=== PATIENT | female | born 1935 | race American Indian/Alaskan Native ===

== ENCOUNTER 2017-04-30 15:51 | Inpatient (IN) | payer MEDICARE, MEDICAID ==
[2017-04-30 17:02] LABS: URINE BILIRUBIN NEGATIVE (NEGATIVE); URINE BLOOD NEGATIVE (NEGATIVE); URINE GLUCOSE (UA) NEGATIVE (NEGATIVE); URINE LEUKOCYTE ESTERASE NEGATIVE Leu/uL (NEGATIVE); URINE NITRATE NEGATIVE (NEGATIVE); URINE PROTEIN 100 mg/dL (<30 mg/dL); URINE UROBILINOGEN 0.2 E.U./dL (<1 E.U./dL)
[2017-04-30 17:09] LABS: EOS # 4.6 (0.0-0.7); EOS % 0.8 % (1.5-5.0); HEMOGLOBIN 9.5 g/dL (12.0-16.0); MEAN CELL VOLUME 108.9 fl (80.0-105.0); MEAN CORPUSCULAR HEMOGLOBIN 38.3 pg (25.0-35.0); MEAN CORPUSCULAR HGB CONC 35.2 g/dl (31.0-37.0); MEAN PLATELET VOLUME 12.8 fl (7.0-11.0); MONO # 7.5 (0.1-0.6); MONO % 1.3 % (1.0-6.0); PLATELET COUNT 173 10^3/uL (120.0-450.0); RBC 2.48 10^6/uL (3.5-6.1); RED CELL DISTRIBUTION WIDTH 19.9 % (11.5-14.5)
[2017-04-30 17:14] LABS: VENOUS BLOOD GAS PO2 50 mm/Hg (30-55); VENOUS BLOOD PH 7.44 (7.32-7.43)
[2017-04-30 17:16] LABS: WHITE BLOOD COUNT 573.8 10^3/ul (4.5-11.0)
[2017-04-30 17:17] LABS: URINE APPEARANCE SL CLOUDY (CLEAR); URINE COLOR YELLOW (YELLOW)
[2017-04-30 17:19] LABS: INR 1.45 (0.93-1.08); PARTIAL THROMBOPLASTIN TIME 32.5 Seconds (25.1-36.5); PROTHROMBIN TIME 16.6 SECONDS (9.4-12.5)
[2017-04-30 17:25] LABS: URINE RBC 0 - 2 /hpf (0-2); URINE WBC 0 - 2 /hpf (0-6)
[2017-04-30 17:26] LABS: URINE BACTERIA FEW (NEG)
[2017-04-30 17:27] LABS: TROPONIN I 0.03 ng/mL
[2017-04-30 17:35] LABS: ALBUMIN 3.7 g/dL (3.0-4.8); ALT/SGPT 49 U/L (7-56); AST/SGOT 135 U/L (14-36); BLOOD UREA NITROGEN 34 mg/dL (7-21); CALCIUM 9.6 mg/dL (8.4-10.5); GFR AFRICAN-AMERICAN > 60; GFR NON-AFRICAN AMERICAN > 60; MAGNESIUM 2.5 mg/dL (1.7-2.2)
[2017-04-30 17:38] LABS: EOS # 4.2 (0.0-0.7); EOS % 0.7 % (1.5-5.0); HEMOGLOBIN 9.4 g/dL (12.0-16.0); MEAN CELL VOLUME 108.9 fl (80.0-105.0); MEAN CORPUSCULAR HEMOGLOBIN 38.1 pg (25.0-35.0); MEAN CORPUSCULAR HGB CONC 34.9 g/dl (31.0-37.0); MONO % 2.1 % (1.0-6.0); PLATELET COUNT 171 10^3/uL (120.0-450.0); RBC 2.47 10^6/uL (3.5-6.1); RED CELL DISTRIBUTION WIDTH 19.9 % (11.5-14.5)
[2017-04-30 17:40] LABS: WHITE BLOOD COUNT 567.7 10^3/ul (4.5-11.0)
--- NOTE | 2017-04-30 17:46 | ED PDOC ---
Arrival/HPI - General Chief Complaint: Altered Mental Status Time Seen by Provider: 04/30/17 16:09 Past Medical History - Infectious Disease Hx of Infectious Diseases: None - Tetanus Immunization Tetanus Immunization: Unknown - Cardiac Hx Cardiac Disorders: Yes Hx Hypertension: Yes - Pulmonary Hx Respiratory Disorders: No - Neurological Hx Neurological Disorder: Yes Hx Dementia: Yes - HEENT Hx HEENT Disorder: No - Renal Hx Renal Disorder: No - Endocrine/Metabolic Hx Endocrine Disorders: No - Hematological/Oncological Hx Blood Disorders: No Hx Blood Transfusions: No - Integumentary Hx Dermatological Disorder: No - Musculoskeletal/Rheumatological Hx Musculoskeletal Disorders: No Hx Falls: No - Gastrointestinal Hx Gastrointestinal Disorders: No - Genitourinary/Gynecological Hx Genitourinary Disorders: No - Psychiatric Hx Psychophysiologic Disorder: No Hx Emotional Abuse: No Hx Physical Abuse: No Hx Substance Use: No - Surgical History Other/Comment: partial nephrectomy for renal cell ca - Anesthesia Hx Anesthesia Reactions: No Hx Malignant Hyperthermia: No - Suicidal Assessment Feels Threatened In Home Enviroment: No Family/Social History Family/Social History: No Known Family HX Smoking Status: Never Smoked Hx Alcohol Use: No Hx Substance Use: No Hx Substance Use Treatment: No Allergies/Home Meds Allergies/Adverse Reactions: Allergies enalapril Allergy (Verified 04/30/17 16:08) ANGIOEDEMA Home Medications: Home Meds Medication Instructions Recorded Confirmed Docusate [Colace] 200 mg PO DAILY 04/30/17 04/30/17 Ergocalciferol (Vitamin D2) 400 iu PO DAILY 04/30/17 04/30/17 [Vitamin D2] Ferrous Sulfate [Feosol] 325 mg PO DAILY 04/30/17 04/30/17 Furosemide [Lasix] 20 mg PO DAILY 04/30/17 04/30/17 LORazepam [Ativan] 0.5 mg PO BID PRN 04/30/17 04/30/17 Megestrol [Megace] 400 mg PO DAILY 04/30/17 04/30/17 Potassium Chloride 10 meq PO WED 04/30/17 04/30/17 Physical Exam Vital Signs Temp Pulse Resp BP Pulse Ox 04/30/17 20:19 106 H 24 160/92 H 92 L 04/30/17 19:00 99 H 24 154/90 H 95 04/30/17 16:38 98.9 F 102 H 20 146/80 100 Medical Decision Making - Lab Interpretations Microbiology Results: Microbiology Results 04/30/17 17:00 Blood Blood Culture - Final NO GROWTH AFTER 5 DAYS 04/30/17 17:00 Blood Gram Stain - Final TEST NOT PERFORMED 04/30/17 16:45 Blood Blood Culture - Final NO GROWTH AFTER 5 DAYS 04/30/17 16:45 Blood Gram Stain - Final TEST NOT PERFORMED 04/30/17 16:45 Urine,Catheterized Urine Culture - Final No Growth (<1,000 CFU/ML) Lab Results: 04/30/17 17:25 04/30/17 16:45 Lab Results 04/30/17 17:25: Hemoglobin A1c 5.8 04/30/17 17:25: WBC 567.7 H*, RBC 2.47 L, Hgb 9.4 L, Hct 26.9 L, MCV 108.9 H, MCH 38.1 H, MCHC 34.9, RDW 19.9 H, Plt Count 171, MPV 12.0 H, Bl[place] % (Auto) 2.1 , Eos % (Auto) 0.7 L, [place] # 12.0 H, Eos # 4.2 H 04/30/17 16:45: Procalcitonin 0.52 H 04/30/17 16:45: Uric Acid 12.9 H, Lactate Dehydrogenase 6141 H 04/30/17 16:45: Sodium 151 H, Chloride 114 H, Potassium 3.2 L, Carbon Dioxide 27 , Anion Gap 13, BUN 34 H, Creatinine 0.8, Est GFR ( Amer) > 60, Est GFR ( Non-Af Amer) > 60, Random Glucose 102, Calcium 9.6, Phosphorus 2.9, Magnesium 2.5 H, Total Bilirubin 0.7, AST 135 H, ALT 49, Alkaline Phosphatase 152 H, Troponin I 0.03 D, Total Protein 7.4, Albumin 3.7, Globulin 3.7, Albumin/ Globulin Ratio 1.0 L 04/30/17 16:45: pO2 50, VBG pH 7.44 H, VBG pCO2 37.0 L, VBG HCO3 25.1, VBG Total CO2 26.2, VBG O2 Sat (Calc) 95.9 H, VBG Base Excess 1.0, VBG Potassium 5.8 H, Sodium 151.0 H, Chloride 113.0 H, Glucose 110 H, Lactate 1.4, FiO2 21.0, Venous Blood Potassium 5.8 H 04/30/17 16:45: Urine Color Yellow, Urine Appearance Sl cloudy, Urine pH 6.0, Ur Specific [place] 1.025, Urine Protein 100 H, Urine Glucose (UA) Negative, Urine Ketones Negative, Urine Blood Negative, Urine Nitrate Negative, Urine Bilirubin Negative, Urine Urobilinogen 0.2, Ur Leukocyte Esterase Negative, Urine RBC 0 - 2, Urine WBC 0 - 2, Ur Epithelial Cells 1 - 3, Urine Bacteria Few 04/30/17 16:45: PT 16.6 H, INR 1.45 H, APTT 32.5 04/30/17 16:45: WBC 573.8 H* D, RBC 2.48 L, Hgb 9.5 L, Hct 27.0 L, MCV 108.9 H, MCH 38.3 H, MCHC 35.2, RDW 19.9 H, Plt Count 173, MPV 12.8 H, [place] % (Auto) 1.3 , Eos % (Auto) 0.8 L, [place] # 7.5 H, Eos # 4.6 H, Corrected WBC (Man) 434.7 H, Neutrophils % (Manual) 31 L, Lymphocytes % (Manual) 17 L, Monocytes % (Manual) 5 , Eosinophils % (Manual) 4 H, Basophils % (Manual) 1, Nucleated RBC % 32, Immature Lymphocytes 22, Blast Cells , Platelet Evaluation Normal, Macrocytosis (manual) 2+ - RAD Interpretation Radiology Orders: 04/30/17 16:48 CHEST PORTABLE [RAD] Stat 04/30/17 16:49 HEAD W/O CONTRAST [CT] Stat - Medication Orders Current Medication Orders: Discontinued Medications Acetaminophen (Tylenol 650 Mg Supp) 650 mg RC Q4H PRN PRN Reason: Fever >100.4 F Albumin Human (Albumin Human 5% (12.5 Gm/250 Ml)) 12.5 gm IV Q1H JOSE Stop: 05/01/17 06:01 Albumin Human (Albumin Human 5% (12.5 Gm/250 Ml)) 12.5 gm IV ONCE ONE Stop: 05/01/17 21:46 Albumin Human (Albumin Human 5% (12.5 Gm/250 Ml)) 12.5 gm IV ONCE ONE Stop: 05/02/17 06:16 Albumin Human (Albumin Human 5% (12.5 Gm/250 Ml)) 12.5 gm IV ONCE ONE Stop: 05/02/17 06:16 Albumin Human (Albumin Human 5% (12.5 Gm/250 Ml)) 12.5 gm IV ONCE ONE Stop: 05/02/17 06:16 Albumin Human (Albumin Human 5% (12.5 Gm/250 Ml)) 12.5 gm IV ONCE ONE Stop: 05/02/17 06:16 Allopurinol (Zyloprim) 100 mg PO BID [facility] Last Admin: 05/05/17 12:23 Dose: 100 mg Docusate Sodium (Colace) 200 mg PO DAILY [facility] Last Admin: 05/05/17 12:23 Dose: 200 mg Enoxaparin Sodium (Lovenox) 40 mg SC DAILY [facility] PRN Reason: Protocol Last Admin: 05/05/17 12:25 Dose: 40 mg Subcutaneous Administrations Document 05/05/17 12:25 BONIFACIO (Rec: 05/05/17 12:25 BONIFACIO [id number]) Injection Site MAR Injection Site Right Abdomen Charges for Administration # of Subcutaneous Administrations 1 Ferrous Sulfate (Feosol) 324 mg PO DAILY [facility] Last Admin: 05/05/17 12:24 Dose: 324 mg Heparin Sodium (Porcine) (Heparin Lock Flush) 2,000 units IVP ONCE ONE PRN Reason: Protocol Stop: 04/30/17 23:13 Heparin Sodium (Porcine) (Heparin) 1,000 units IVP ONCE ONE PRN Reason: Protocol Stop: 05/01/17 01:48 Heparin Sodium (Porcine) (Heparin) 1,000 units IVP ONCE ONE PRN Reason: Protocol Stop: 05/01/17 01:48 Heparin Sodium (Porcine) (Heparin) 5,000 units IVP ONCE ONE PRN Reason: Protocol Stop: 05/02/17 08:17 Last Admin: 05/02/17 09:27 Dose: 5,000 units Comments: given for catherer, by [facility] IVP Administration Document 05/02/17 09:27 ID (Rec: 05/02/17 09:29 ID [id number]) Charges for Administration # of IVP Administrations 1 Heparin Sodium (Porcine) (Heparin) 5,000 units IVP ONCE ONE PRN Reason: Protocol Stop: 05/02/17 08:18 Last Admin: 05/02/17 09:30 Dose: 5,000 units Comments: given for kiterer, by [facility] IVP Administration Document 05/02/17 09:30 ID (Rec: 05/02/17 09:30 ID [id number]) Charges for Administration # of IVP Administrations 1 Home Med (Home Med) 1 unit PO DAILY JOSE Home Med (Home Med) 1 unit PO DAILY JOSE Home Med (Home Med) 1 unit PO DAILY JOSE Last Admin: 05/05/17 12:24 Dose: 1 unit Comments: med will not scan Hydroxyurea (Hydrea) 1,000 mg PO TID JOSE Stop: 05/05/17 00:00 Last Admin: 05/03/17 14:46 Dose: 1,000 mg Cefepime HCl (Maxipime 2gm) 2 gm in 100 mls @ 100 mls/hr IVPB STAT STA PRN Reason: Protocol Stop: 04/30/17 18:50 Last Admin: 04/30/17 19:33 Dose: 100 mls/hr eMAR Start Stop Document 04/30/17 19:33 CNR (Rec: 04/30/17 19:33 [id number]) Intravenous Solution Start Date 04/30/17 Start Time 19:33 Sodium Chloride (Sodium Chloride 0.9%) 500 mls @ 999 mls/hr IV .Q31M STA Stop: 04/30/17 18:21 Last Admin: 04/30/17 19:33 Dose: 999 mls/hr eMAR Start Stop Document 04/30/17 19:33 CNR (Rec: 04/30/17 19:33 [id number]) Intravenous Solution Start Date 04/30/17 Start Time 19:33 Vancomycin HCl (Vancomycin 1gm) 1 gm in 250 mls @ 167 mls/hr IVPB STAT STA PRN Reason: Protocol Stop: 04/30/17 19:20 Last Admin: 04/30/17 20:37 Dose: 167 mls/hr eMAR Start Stop Document 04/30/17 20:37 CNR (Rec: 04/30/17 20:37 CNR [id number]) Intravenous Solution Start Date 04/30/17 Start Time 20:37 Sodium Chloride (Sodium Chloride 0.9%) 1,000 mls @ 100 mls/hr IV .Q10H JOSE Stop: 05/01/17 19:57 Last Admin: 04/30/17 21:02 Dose: 100 mls/hr eMAR Start Stop Document 04/30/17 21:02 CNR (Rec: 04/30/17 21:03 CNR [id number]) Intravenous Solution Start Date 04/30/17 Start Time 21:03 Albumin Human (Albumin Human 5% (12.5 Gm/250 Ml)) 2,500 mls @ 4 mls/min IV ONCE ONE Stop: 05/01/17 07:39 Meropenem (Merrem Iv 1 Gm Premix) 50 mls @ 100 mls/hr IVPB Q8H JOSE PRN Reason: Protocol Last Admin: 05/03/17 18:41 Dose: 100 mls/hr Vancomycin HCl (Vancomycin 1gm) 1 gm in 250 mls @ 167 mls/hr IVPB Q12H JOSE PRN Reason: Protocol Stop: 05/10/17 08:46 Last Admin: 05/04/17 10:57 Dose: 167 mls/hr eMAR Start Stop Document 05/04/17 10:57 BONIFACIO (Rec: 05/04/17 10:57 BONIFACIO [id number] Intravenous Solution Start Date 05/04/17 Start Time 10:57 End Date 05/04/17 End time 12:27 Total Infusion Time 90 Calcium Gluconate 1,000 mg/ (Dextrose) 110 mls @ 110 mls/hr IVPB ONCE ONE Stop: 05/01/17 16:59 Last Admin: 05/01/17 18:48 Dose: 110 mls/hr Comments: was given by [facility] nurse eMAR Start Stop Document 05/01/17 18:48 YOSHI (Rec: 05/01/17 18:49 YOSHI [id number]) Intravenous Solution Start Date 05/01/17 Start Time 16:00 End Date 05/01/17 End time 16:45 Total Infusion Time 45 Dextrose/Sodium Chloride (Dextrose 5%/0.45% Ns 1000 Ml) 1,000 mls @ 50 mls/hr IV .Q20H [facility] Last Admin: 05/01/17 20:45 Dose: 50 mls/hr eMAR Start Stop Document 05/01/17 20:45 B.P (Rec: 05/01/17 20:46 B.P [facility]) Intravenous Solution Start Date 01/14/18 Start Time 20:46 Calcium Gluconate 1,000 mg/ (Sodium Chloride) 110 mls @ 110 mls/hr IVPB ONCE ONE Stop: 05/02/17 06:59 Potassium Chloride (Potassium Chloride 10 Meq/100 Ml) 10 meq in 100 mls @ 50 mls/hr IVPB ONCE ONE Stop: 05/02/17 09:59 Last Admin: 05/02/17 09:43 Dose: 50 mls/hr eMAR Start Stop Document 05/02/17 09:43 ID (Rec: 05/02/17 09:43 ID [id number]) Intravenous Solution Start Date 05/02/17 Start Time 09:43 End Date 05/02/17 Potassium Chloride (Potassium Chloride 10 Meq/100 Ml) 10 meq in 100 mls @ 50 mls/hr IVPB ONCE ONE Stop: 05/02/17 10:00 Last Admin: 05/02/17 10:55 Dose: 50 mls/hr eMAR Start Stop Document 05/02/17 10:55 ID (Rec: 05/02/17 10:55 ID [id number]) Intravenous Solution Start Date 05/02/17 Start Time 10:55 End Date 05/02/17 Potassium Phosphate 15 mmole/ (Sodium Chloride) 255 mls @ 42.5 mls/hr IVPB ONCE ONE Stop: 05/02/17 14:29 Last Admin: 05/02/17 09:19 Dose: 42.5 mls/hr eMAR Start Stop Document 05/02/17 09:19 ID (Rec: 05/02/17 09:19 ID [id number]) Intravenous Solution Start Date 05/02/17 Start Time 09:19 End Date 05/02/17 Dextrose/Sodium Chloride (Dextrose 5%/0.45% Ns 1000 Ml) 1,000 mls @ 100 mls/hr IV .Q10H JOSE Last Admin: 05/05/17 03:49 Dose: 100 mls/hr eMAR Start Stop Document 05/05/17 03:49 LUKAS (Rec: 05/05/17 03:50 LUKAS [id number]) Intravenous Solution Start Date 05/05/17 Start Time 03:49 Potassium Chloride (Potassium Chloride 10 Meq/100 Ml) 10 meq in 100 mls @ 50 mls/hr IVPB ONCE ONE Stop: 05/03/17 09:52 Last Admin: 05/03/17 10:31 Dose: 50 mls/hr eMAR Start Stop Document 05/03/17 10:31 ID (Rec: 05/03/17 10:31 ID [id number]) Intravenous Solution Start Date 05/03/17 Start Time 10:31 End Date 05/03/17 Potassium Phosphate 15 mmole/ (Sodium Chloride) 255 mls @ 42.5 mls/hr IVPB ONCE ONE Stop: 05/03/17 13:52 Last Admin: 05/03/17 10:31 Dose: 42.5 mls/hr eMAR Start Stop Document 05/03/17 10:31 ID (Rec: 05/03/17 10:32 ID [id number]) Intravenous Solution Start Date 05/03/17 Start Time 10:32 End Date 05/03/17 Potassium Chloride (Potassium Chloride 10 Meq/100 Ml) 10 meq in 100 mls @ 50 mls/hr IVPB ONCE ONE Stop: 05/03/17 09:53 Last Admin: 05/03/17 14:45 Dose: 50 mls/hr eMAR Start Stop Document 05/03/17 14:45 ID (Rec: 05/03/17 14:45 ID [id number]) Intravenous Solution Start Date 05/03/17 Start Time 14:45 End Date 05/03/17 Meropenem (Merrem Iv 1 Gm Premix) 50 mls @ 100 mls/hr IVPB 0600,1400,2200 JOSE PRN Reason: Protocol Last Admin: 05/05/17 15:08 Dose: Potassium Chloride (Potassium Chloride 10 Meq/100 Ml) 10 meq in 100 mls @ 50 mls/hr IVPB ONCE ONE Stop: 05/04/17 18:08 Last Admin: 05/05/17 16:52 Dose: 50 mls/hr eMAR Start Stop Document 05/05/17 16:52 BONIFACIO (Rec: 05/05/17 16:52 BONIFACIO [id number]) Intravenous Solution Start Date 05/05/17 Start Time 16:10 End Date 05/05/17 End time 18:10 Total Infusion Time 120 Potassium Chloride (Potassium Chloride 10 Meq/100 Ml) 10 meq in 100 mls @ 50 mls/hr IVPB ONCE ONE Stop: 05/04/17 18:26 Last Admin: 05/04/17 19:26 Dose: 50 mls/hr eMAR Start Stop Document 05/04/17 19:26 BONIFACIO (Rec: 05/04/17 19:29 BONIFACIO [id number]) Intravenous Solution Start Date 05/04/17 Start Time 19:29 End Date 05/04/17 End time 21:29 Total Infusion Time 120 Potassium Chloride (Potassium Chloride 10 Meq/100 Ml) 10 meq in 100 mls @ 50 mls/hr IVPB Q2 JOSE Stop: 05/05/17 17:59 Last Admin: 05/05/17 14:21 Dose: 50 mls/hr eMAR Start Stop Document 05/05/17 14:21 BONIFACIO (Rec: 05/05/17 14:21 BONIFACIO [id number]) Intravenous Solution Start Date 05/05/17 Start Time 14:21 End Date 05/05/17 End time 16:21 Total Infusion Time 120 Lorazepam (Ativan) 0.5 mg PO BID PRN; Protocol PRN Reason: Anxiety Last Admin: 05/02/17 18:42 Dose: 0.5 mg Behavioural Document 05/02/17 18:42 ID (Rec: 05/02/17 18:42 ID [id number]) Maintenance Maintenance Dose Yes Nonmedicinal Nonmedicinal Interventions Redirect Therapeutic Communication Behavior Behavior for Medication: Anxiety Pulling IV lines/tubes/ catheter Megestrol Acetate (Megace) 400 mg PO DAILY [facility] Last Admin: 05/05/17 12:22 Dose: 400 mg Non-Formulary Medication (Ergocalciferol (Vitamin D2) [Vitamin D2]) 400 iu PO DAILY [facility] Last Admin: 05/05/17 12:25 Dose: Pantoprazole Sodium (Protonix Inj) 40 mg IVP DAILY [facility] Last Admin: 05/03/17 10:31 Dose: 40 mg IVP Administration Document 05/03/17 10:31 ID (Rec: 05/03/17 10:31 ID [id number]) Charges for Administration # of IVP Administrations 1 Pantoprazole Sodium (Protonix Ec Tab) 40 mg PO ACB [facility] Last Admin: 05/05/17 12:25 Dose: 40 mg Pneumococcal Polyvalent Vaccine (Pneumovax 23 Vaccine) 0.5 ml IM .ONCE ONE Stop: 04/30/17 22:56 Potassium Chloride (Potassium Chloride Oral Soln) 40 meq PO ONCE ONE Stop: 05/02/17 08:02 Last Admin: 05/02/17 09:44 Dose: 40 meq Potassium Chloride (Potassium Chloride Oral Soln) 40 meq PO ONCE ONE Stop: 05/03/17 07:55 Last Admin: 05/03/17 10:31 Dose: 40 meq Potassium Chloride (Potassium Chloride Oral Soln) 40 meq PO STAT STA Stop: 05/04/17 12:12 Last Admin: 05/04/17 16:19 Dose: Quetiapine Fumarate (Seroquel) 25 mg PO HS JOSE PRN Reason: Protocol Last Admin: 05/04/17 22:44 Dose: 25 mg Behavioural Document 05/04/17 22:44 [facility] (Rec: 05/04/17 22:45 [id number]) Maintenance Maintenance Dose Yes Re-Assess: Reassess Psych Meds Document 05/04/17 23:44 [facility] (Rec: 05/05/17 05:35 [id number]) Reassess Psych Med Effective Disposition/Present on Arrival - Present on Arrival Any Indicators Present on Arrival: No History of DVT/PE: No History of Uncontrolled Diabetes: No Urinary Catheter: No History of Decub. Ulcer: No History Surgical Site Infection Following: None - Disposition Have Diagnosis and Disposition been Completed?: Yes Diagnosis: Leukocytosis, Altered mental status, Hypernatremia, Anemia Disposition: HOSPITALIZED Disposition Time: 20:00 Condition: STABLE
[2017-04-30] MEDS ORDERED: Cefepime IV 2 gm in NS 2 GM/100 ML BAG IVPB STA (17:51)
[2017-04-30] MEDS ORDERED: Sodium Chloride 0.9% 500 ML IV STA (17:51)
[2017-04-30] MEDS ORDERED: Vancomycin 1gm in NS 250ml 1 GM/250 ML BAG IVPB STA (17:51)
--- NOTE | 2017-04-30 18:03 | CT ---
EXAM: CT Head Without Intravenous Contrast EXAM DATE/TIME: 04/30/2017 4:49 PM CLINICAL HISTORY: 81 years old, female; Signs and symptoms; Altered mental status/memory loss; Additional info: AMS TECHNIQUE: Axial computed tomography images of the head/brain without intravenous contrast. All CT scans at this facility use one or more dose reduction techniques, viz.: automated exposure control; ma/kV adjustment per patient size (including targeted exams where dose is matched to indication; i.e. head); or iterative reconstruction technique. Coronal and sagittal reformatted images were created and reviewed. COMPARISON: There are no prior studies for comparison. FINDINGS: Brain: There is dilatation of sulci gyri and ventricles. There is no midline shift. There is decreased attenuation in periventricular white matter. They are age indeterminate lacunar infarcts in the basal ganglia. There are no focal masses. There are no focal hemorrhages. [place]-white differentiation is visualized. Ventricles: See above Bones/joints: Bones: Cranial vault is intact. Soft tissues: unremarkable Sinuses: There is complete opacification of the left sphenoid sinus. Mastoid air cells: Ears and mastoids: Middle ears and mastoids are unremarkable. Orbits: Orbital contents are unremarkable. 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
--- NOTE | 2017-04-30 18:44 | ED PDOC ---
Arrival/HPI - General Chief Complaint: Altered Mental Status Time Seen by Provider: 04/30/17 16:09 Historian: Patient - History of Present Illness Narrative History of Present Illness (Text): 04/30/17 18:41 Patient is a 81yo female with PMHx of hypertension, dementia, GI hemorrhage and schizophrenia biba from [facility] and [place] for lethargy. The grand daughter who is by the bedside states patient is usually Alert, although baseline confuse , but has been lethargic today. Notes that the NH called her today and she is not sure how long she has been lethargic. PT is poor historian, unable to obtain any information from her. Past Medical History - Provider Review Nursing Documentation Reviewed: Yes - Infectious Disease Hx of Infectious Diseases: None - Tetanus Immunization Tetanus Immunization: Unknown - Cardiac Hx Cardiac Disorders: Yes Hx Hypertension: Yes - Pulmonary Hx Respiratory Disorders: No - Neurological Hx Neurological Disorder: Yes Hx Dementia: Yes - HEENT Hx HEENT Disorder: No - Renal Hx Renal Disorder: No - Endocrine/Metabolic Hx Endocrine Disorders: No - Hematological/Oncological Hx Blood Disorders: No Hx Blood Transfusions: No - Integumentary Hx Dermatological Disorder: No - Musculoskeletal/Rheumatological Hx Musculoskeletal Disorders: No Hx Falls: No - Gastrointestinal Hx Gastrointestinal Disorders: No - Genitourinary/Gynecological Hx Genitourinary Disorders: No - Psychiatric Hx Psychophysiologic Disorder: No Hx Emotional Abuse: No Hx Physical Abuse: No Hx Substance Use: No - Surgical History Other/Comment: partial nephrectomy for renal cell ca - Anesthesia Hx Anesthesia Reactions: No Hx Malignant Hyperthermia: No - Suicidal Assessment Feels Threatened In Home Enviroment: No Family/Social History - Physician Review Nursing Documentation Reviewed: Yes Family/Social History: Unknown Family HX Smoking Status: Never Smoked Hx Alcohol Use: No Hx Substance Use: No Hx Substance Use Treatment: No Allergies/Home Meds Allergies/Adverse Reactions: Allergies enalapril Allergy (Verified 04/30/17 16:08) ANGIOEDEMA Home Medications: Home Meds Medication Instructions Recorded Confirmed Docusate [Colace] 200 mg PO DAILY 04/30/17 04/30/17 Ergocalciferol (Vitamin D2) 400 iu PO DAILY 04/30/17 04/30/17 [Vitamin D2] Ferrous Sulfate [Feosol] 325 mg PO DAILY 04/30/17 04/30/17 Furosemide [Lasix] 20 mg PO DAILY 04/30/17 04/30/17 LORazepam [Ativan] 0.5 mg PO BID PRN 04/30/17 04/30/17 Megestrol [Megace] 400 mg PO DAILY 04/30/17 04/30/17 Potassium Chloride [Potassium 10 meq PO WED 04/30/17 04/30/17 Chloride] Review of Systems - Review of Systems Systems not reviewed;Unavailable: Other (LEthargic) Physical Exam Vital Signs Reviewed: Yes Vital Signs Temp Pulse Pulse Resp BP Pulse Ox 04/30/17 22:39 100.4 F H 99 H 99 H 24 154/90 H 04/30/17 22:16 100.4 F H 04/30/17 19:00 99 H 24 154/90 H 95 04/30/17 16:38 98.9 F 102 H 20 146/80 100 Temperature: Afebrile Blood Pressure: Normal Pulse: Tachycardic Respiratory Rate: Normal Appearance: Positive for: Non-Toxic, Comfortable, Ill-Appearing Pain Distress: None Mental Status: Positive for: Lethargic - Systems Exam Head: Present: Atraumatic, Normocephalic Pupils: Present: PERRL Extroacular Muscles: Present: EOMI Conjunctiva: Present: Normal Mouth: Present: Moist Mucous Membranes Neck: Present: Normal Range of Motion Respiratory/Chest: Present: Clear to Auscultation, Good Air Exchange. No: Respiratory Distress, Accessory Muscle Use Cardiovascular: Present: Regular Rate and Rhythm, Normal S1, S2. No: Murmurs Abdomen: Present: Normal Bowel Sounds. No: Tenderness, Distention, Peritoneal Signs, Rebound, Guarding, McBurney's Point Tender, Rovsing's Sign Present Back: Present: Normal Inspection Upper Extremity: Present: Normal Inspection. No: Cyanosis, Edema Lower Extremity: Present: Normal Inspection. No: Edema Neurological: Present: Other (Responds to painful stimuli and makes incoherent sounds) Skin: Present: Warm, Dry, Normal Color. No: Rashes Psychiatric: Present: Lethargic (Makes incohernet sounds) Medical Decision Making ED Course and Treatment: 05/01/17 00:41 81yo female with PMHx of hypertension, Dementia, GI hemorrhage, Schizophrenia in ED for lethargy. Case was DW Dr. Patel and she notes that pt has been lethargic in the NH for few days now. States patient was treated with Zpack, but became increasingly lethargic and she referred her to ED for further evaluation. Pt remain lethargic in ED. WBC of 567 was noted in ED. Pt was hypernatremic. Lab was compared to previous labs and elevated WBC is a new finding. 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 Vancomycin and Maxipime was ordered. Head CT IMPRESSION: Atrophy and small vessel disease, age indeterminate basal ganglia lacunar infarcts, no bleed; sinus disease Case was CATHY Patel and pt was admitted. Case was CATHY De La Cruz, Patient Care Secretary. He saw patient in ED by the bedside and accepted pt to ICU Case was CATHY Gardiner and she requested Uric acid and LDH. EKG Sinus tachy with LVH @ 104bpm - Lab Interpretations Lab Results: 04/30/17 17:25 04/30/17 16:45 Lab Results 04/30/17 17:25: WBC 567.7 H*, RBC 2.47 L, Hgb 9.4 L, Hct 26.9 L, MCV 108.9 H, MCH 38.1 H, MCHC 34.9, RDW 19.9 H, Plt Count 171, MPV 12.0 H, [place] % (Auto) 2.1 , Eos % (Auto) 0.7 L, [place] # 12.0 H, Eos # 4.2 H 04/30/17 16:45: Uric Acid 12.9 H, Lactate Dehydrogenase 6141 H 04/30/17 16:45: Sodium 151 H, Chloride 114 H, Potassium 3.2 L, Carbon Dioxide 27 , Anion Gap 13, BUN 34 H, Creatinine 0.8, Est GFR ( Amer) > 60, Est GFR ( Non-Af Amer) > 60, Random Glucose 102, Calcium 9.6, Phosphorus 2.9, Magnesium 2.5 H, Total Bilirubin 0.7, AST 135 H, ALT 49, Alkaline Phosphatase 152 H, Troponin I 0.03 D, Total Protein 7.4, Albumin 3.7, Globulin 3.7, Albumin/ Globulin Ratio 1.0 L 04/30/17 16:45: pO2 50, VBG pH 7.44 H, VBG pCO2 37.0 L, VBG HCO3 25.1, VBG Total CO2 26.2, VBG O2 Sat (Calc) 95.9 H, VBG Base Excess 1.0, VBG Potassium 5.8 H, Sodium 151.0 H, Chloride 113.0 H, Glucose 110 H, Lactate 1.4, FiO2 21.0, Venous Blood Potassium 5.8 H 04/30/17 16:45: Urine Color Yellow, Urine Appearance Sl cloudy, Urine pH 6.0, Ur Specific [place] 1.025, Urine Protein 100 H, Urine Glucose (UA) Negative, Urine Ketones Negative, Urine Blood Negative, Urine Nitrate Negative, Urine Bilirubin Negative, Urine Urobilinogen 0.2, Ur Leukocyte Esterase Negative, Urine RBC 0 - 2, Urine WBC 0 - 2, Ur Epithelial Cells 1 - 3, Urine Bacteria Few 04/30/17 16:45: PT 16.6 H, INR 1.45 H, APTT 32.5 04/30/17 16:45: WBC 573.8 H* D, RBC 2.48 L, Hgb 9.5 L, Hct 27.0 L, MCV 108.9 H, MCH 38.3 H, MCHC 35.2, RDW 19.9 H, Plt Count 173, MPV 12.8 H, [place] % (Auto) 1.3 , Eos % (Auto) 0.8 L, [place] # 7.5 H, Eos # 4.6 H, Corrected WBC (Man) 434.7 H, Neutrophils % (Manual) 31 L, Lymphocytes % (Manual) 17 L, Monocytes % (Manual) 5 , Eosinophils % (Manual) 4 H, Basophils % (Manual) 1, Nucleated RBC % 32, Immature Lymphocytes 22, Blast Cells 20, Platelet Evaluation Normal, Macrocytosis (manual) 2+ - RAD Interpretation Radiology Orders: 04/30/17 16:48 CHEST PORTABLE [RAD] Stat 04/30/17 16:49 HEAD W/O CONTRAST [CT] Stat - Medication Orders Current Medication Orders: Acetaminophen (Tylenol 650 Mg Supp) 650 mg RC Q4H PRN PRN Reason: Fever >100.4 F Docusate Sodium (Colace) 200 mg PO DAILY JOSE Enoxaparin Sodium (Lovenox) 40 mg SC DAILY JOSE PRN Reason: Protocol Ferrous Sulfate (Feosol) 324 mg PO DAILY JOSE Furosemide (Lasix) 20 mg PO DAILY [facility] Sodium Chloride (Sodium Chloride 0.9%) 1,000 mls @ 100 mls/hr IV .Q10H JOSE Last Admin: 04/30/17 21:02 Dose: 100 mls/hr eMAR Start Stop Document 04/30/17 21:02 CNR (Rec: 04/30/17 21:03 CNR [id number]) Intravenous Solution Start Date 04/30/17 Start Time 21:03 Cefepime HCl (Maxipime 1gm) 1 gm in 100 mls @ 100 mls/hr IVPB Q24H JOSE PRN Reason: Protocol Albumin Human (Albumin Human 5% (12.5 Gm/250 Ml)) 2,500 mls @ 4 mls/min IV ONCE ONE Stop: 05/01/17 07:39 Lorazepam (Ativan) 0.5 mg PO BID PRN; Protocol PRN Reason: Anxiety Megestrol Acetate (Megace) 400 mg PO DAILY JOSE Non-Formulary Medication (Ergocalciferol (Vitamin D2) [Vitamin D2]) 400 iu PO DAILY JOSE Pantoprazole Sodium (Protonix Inj) 40 mg IVP DAILY JOSE Potassium Chloride (Klor-Con 10) 10 meq PO WED JOSE Quetiapine Fumarate (Seroquel) 25 mg PO HS JOSE PRN Reason: Protocol Discontinued Medications Albumin Human (Albumin Human 5% (12.5 Gm/250 Ml)) 12.5 gm IV Q1H JOSE Stop: 05/01/17 06:01 Heparin Sodium (Porcine) (Heparin Lock Flush) 2,000 units IVP ONCE ONE PRN Reason: Protocol Stop: 04/30/17 23:13 Cefepime HCl (Maxipime 2gm) 2 gm in 100 mls @ 100 mls/hr IVPB STAT STA PRN Reason: Protocol Stop: 04/30/17 18:50 Last Admin: 04/30/17 19:33 Dose: 100 mls/hr eMAR Start Stop Document 04/30/17 19:33 CNR (Rec: 04/30/17 19:33 CNR [id number]) Intravenous Solution Start Date 04/30/17 Start Time 19:33 Sodium Chloride (Sodium Chloride 0.9%) 500 mls @ 999 mls/hr IV .Q31M STA Stop: 04/30/17 18:21 Last Admin: 04/30/17 19:33 Dose: 999 mls/hr eMAR Start Stop Document 04/30/17 19:33 CNR (Rec: 04/30/17 19:33 CNR [id number]) Intravenous Solution Start Date 04/30/17 Start Time 19:33 Vancomycin HCl (Vancomycin 1gm) 1 gm in 250 mls @ 167 mls/hr IVPB STAT STA PRN Reason: Protocol Stop: 04/30/17 19:20 Last Admin: 04/30/17 20:37 Dose: 167 mls/hr eMAR Start Stop Document 04/30/17 20:37 CNR (Rec: 04/30/17 20:37 CNR [id number]) Intravenous Solution Start Date 04/30/17 Start Time 20:37 Pneumococcal Polyvalent Vaccine (Pneumovax 23 Vaccine) 0.5 ml IM .ONCE ONE Stop: 04/30/17 22:56 Disposition/Present on Arrival - Present on Arrival Any Indicators Present on Arrival: No History of DVT/PE: No History of Uncontrolled Diabetes: No Urinary Catheter: No History of Decub. Ulcer: No History Surgical Site Infection Following: None - Disposition Have Diagnosis and Disposition been Completed?: Yes Diagnosis: Leukocytosis, Altered mental status, Hypernatremia, Anemia Disposition: HOSPITALIZED Disposition Time: 18:35 Patient Problems: Current Active Problems Problem Status Onset Altered mental status Acute Anemia Acute Hypernatremia Acute Leukocytosis Acute Condition: SERIOUS
--- NOTE | 2017-04-30 19:38 | CP.PCM.CON ---
<JanettElissa tian - Last Filed: 05/01/17 01:42> History of Present Illness - History of Present Illness History of Present Illness: Please note: h&p limited as patient was altered. Telephone consent for procedures obtained form granddaughter Adeola Brock 81yo F with PMHx of HTN, Dementia, Schizophrenia, Renal Cell CA s/p partial nephrectomy, CML, rectal bleed, here for evaluation for altered mental status. Patient history obtained from chart review. Patient is a resident of [facility]. She was found today by senior care staff noted to be lethargic. Pt's granddaughter was contacted by the staff and she was transferred to [place] ED for further workup. As per granddaughter patient was disoriented and weaker than usual. At baseline she is able to sit up OOB to chair however over the past few days patient was bedbound. In the ED, WBC found to be 567. ROS: unobtainable secondary to patient's AMS PMHx: HTN, Dementia, Schizophrenia, Renal Cell CA s/p partial nephrectomy, CML, rectal bleed PSurgHx: partial nephrectomy Family Hx: heart disease in both parents Social Hx: no hx of EtOH, tobacco, drug use. Lives in [facility] Meds: Please see medication reconciliation ALL: enalapril Review of Systems - Review of Systems Systems not reviewed;Unavailable: Altered Mental Status Past Patient History - Infectious Disease Hx of Infectious Diseases: None - Tetanus Immunizations Tetanus Immunization: Unknown - Past Social History Smoking Status: Never Smoked - CARDIAC Hx Cardiac Disorders: Yes Hx Hypertension: Yes - PULMONARY Hx Respiratory Disorders: No - NEUROLOGICAL Hx Neurological Disorder: Yes Hx Dementia: Yes - HEENT Hx HEENT Problems: No - RENAL Hx Chronic Kidney Disease: No - ENDOCRINE/METABOLIC Hx Endocrine Disorders: No - HEMATOLOGICAL/ONCOLOGICAL Hx Blood Disorders: No Hx Blood Transfusions: No - INTEGUMENTARY Hx Dermatological Problems: No - MUSCULOSKELETAL/RHEUMATOLOGICAL Hx Musculoskeletal Disorders: No Hx Falls: No - GASTROINTESTINAL Hx Gastrointestinal Disorders: No - GENITOURINARY/GYNECOLOGICAL Hx Genitourinary Disorders: No - PSYCHIATRIC Hx Psychophysiologic Disorder: No Hx Emotional Abuse: No Hx Physical Abuse: No Hx Substance Use: No - SURGICAL HISTORY Other/Comment: partial nephrectomy for renal cell ca - ANESTHESIA Hx Anesthesia Reactions: No Hx Malignant Hyperthermia: No Meds Allergies/Adverse Reactions: Allergies Allergy/AdvReac Type Severity Reaction Status Date / Time enalapril Allergy ANGIOEDEMA Verified 04/30/17 16:08 Physical Exam - Constitutional Appears: Confused, Chronically Ill - Head Exam Head Exam: ATRAUMATIC, NORMAL INSPECTION, NORMOCEPHALIC - Eye Exam Eye Exam: EOMI, Normal appearance, PERRL. absent: Conjunctival injection, Scleral icterus Pupil Exam: NORMAL ACCOMODATION - ENT Exam ENT Exam: Mucous Membranes Dry - Respiratory Exam Respiratory Exam: Clear to Auscultation Bilateral, NORMAL BREATHING PATTERN. absent: Accessory Muscle Use, Rales, Rhonchi, Wheezes, Respiratory Distress - Cardiovascular Exam Cardiovascular Exam: Tachycardia, REGULAR RHYTHM, +S1, +S2. absent: Systolic Murmur - GI/Abdominal Exam GI & Abdominal Exam: Normal Bowel Sounds, Soft. absent: Firm, Guarding, Rigid, Tenderness Additional comments: lower abdominal surgical scar noted - Extremities Exam Extremities exam: Positive for: normal capillary refill, normal inspection, pedal pulses present. Negative for: pedal edema - Back Exam Back exam: NORMAL INSPECTION. absent: rash noted, tenderness - Neurological Exam Neurological exam: Altered Additional comments: Incomprehensible sounds. Localizes to painful stimuli. - Skin Skin Exam: Dry, Intact, Normal Color, Warm Results - Vital Signs Recent Vital Signs: Last Vital Signs Temp 98.9 F 04/30/17 16:38 Pulse 102 H 04/30/17 16:38 Resp 20 04/30/17 16:38 BP 146/80 04/30/17 16:38 Pulse Ox 100 04/30/17 16:38 - Labs Result Diagrams: 04/30/17 17:25 04/30/17 16:45 Assessment & Plan - Assessment and Plan (Free Text) Assessment: 81yo F with PMHx of HTN, Dementia, Schizophrenia, Renal Cell CA s/p partial nephrectomy, CML, rectal bleed, here for evaluation for altered mental status Plan: Neuro: -Head CT: atrophy and small vessel disease, age indeterminate basal ganglia lacunar infarcts, no bleed; sinus disease -Speech/Swallow eval -PT/OT -patient has baseline dementia Cardio: -No acute issues -f/u lipid panel and HgbA1c Pulm: -CT Chest: Left lwoer lobe airspace disease, infiltrate and/or atelectasis with small left effusion; elevated right diaphragm with compressive atelectasis at the right base; indeterminate 3.2mm right upper lobe nodule; cardiomegaly and atherosclerotic disease; prominent mediastinal nodes. -f/u CXR -Dr. Rose consulted GI: -NPO -No acute issues -Megace 400mg po qd -Colace 200mg po qd -Protonix 40mg ivp qd Renal: -No acute issues -Strict Is and Os -NS @ 100cc/hr -Allopurinol 100mg po bid -Lasix 20mg po qd -Brooks in place Endo: -no acute issues -Accucheck Heme/Onc: -WBC: 573.8-->567.7 -CT Abd/Pelvis: interval development of hepatosplenomegaly, infectious/ inflammatory vs neoplastic; para-aortic adenopathy cannot be excluded; no bowel obstruction; empty bladder with Brooks catheter and bladder wall thickening; new right abdominal wall cutaneous nodule; atherosclerotic disease. -[facility] contacted for leukopheresis -Albumin 2.5L ordered for fluid resuscitation -Will repeat leukopheresis in AM -DVT ppx- Lovenox 40mg sc qd -Feosol 324mg po qd -Dr. Choi on board -[facility] contact information: -Charge Nurse Lizett -Nurse Luca ID: -f/u blood and urine culture -f/u procalcitonin -Tylenol 650mg rc q4 prn temp -Cefepime 1gm ivpb q24 Day 1 -Dr. Rivers consulted Psych: -Seroquel 25mg po qhs -Ativan 0.5mg po bid prn Discussed with Dr. Andrez Rowland PGY2 <Wilton Maguire Q - Last Filed: 05/01/17 05:29> Meds - Medications Medications: Current Medications Acetaminophen (Tylenol 650 Mg Supp) 650 mg RC Q4H PRN PRN Reason: Fever >100.4 F Allopurinol (Zyloprim) 100 mg PO BID JOSE Docusate Sodium (Colace) 200 mg PO DAILY JOSE Enoxaparin Sodium (Lovenox) 40 mg SC DAILY JOSE PRN Reason: Protocol Ferrous Sulfate (Feosol) 324 mg PO DAILY JOSE Furosemide (Lasix) 20 mg PO DAILY JOSE Sodium Chloride (Sodium Chloride 0.9%) 1,000 mls @ 100 mls/hr IV .Q10H JOSE Last Admin: 04/30/17 21:02 Dose: 100 mls/hr Cefepime HCl (Maxipime 1gm) 1 gm in 100 mls @ 100 mls/hr IVPB Q24H JOSE PRN Reason: Protocol Albumin Human (Albumin Human 5% (12.5 Gm/250 Ml)) 2,500 mls @ 4 mls/min IV ONCE ONE Stop: 05/01/17 07:39 Lorazepam (Ativan) 0.5 mg PO BID PRN; Protocol PRN Reason: Anxiety Megestrol Acetate (Megace) 400 mg PO DAILY JOSE Non-Formulary Medication (Ergocalciferol (Vitamin D2) [Vitamin D2]) 400 iu PO DAILY JOSE Pantoprazole Sodium (Protonix Inj) 40 mg IVP DAILY JOSE Potassium Chloride (Klor-Con 10) 10 meq PO WED JOSE Quetiapine Fumarate (Seroquel) 25 mg PO HS JOSE PRN Reason: Protocol Results - Vital Signs Recent Vital Signs: Last Vital Signs Temp 99.0 F 04/30/17 23:00 Pulse 91 H 05/01/17 01:50 Resp 19 05/01/17 01:50 BP 139/67 05/01/17 01:45 Pulse Ox 100 05/01/17 01:00 - Labs Result Diagrams: 05/01/17 04:30 05/01/17 05:00 Labs: Laboratory Results - last 24 hr 04/30/17 04/30/17 05/01/17 21:30 21:30 04:30 WBC 330.6 H* D RBC 1.67 L Hgb 6.3 L* D Hct 18.3 L* MCV 109.6 H MCH 37.7 H MCHC 34.4 RDW 19.3 H Plt Count 105 L MPV 10.8 Lymph % (Auto) 6.0 L [place] % (Auto) 1.6 Eos % (Auto) 1.3 L Lymph # 19.9 H [place] # 5.2 H Eos # 4.5 H Sodium Potassium Chloride Carbon Dioxide Anion Gap BUN Creatinine Est GFR ( Amer) Est GFR (Non-Af Amer) Random Glucose Calcium Phosphorus Magnesium Iron 68 TIBC 354 % Saturation 19 L Total Bilirubin AST ALT Alkaline Phosphatase Lactate Dehydrogenase Total Protein Albumin Globulin Albumin/Globulin Ratio Triglycerides 169 H Cholesterol 118 L LDL Cholesterol Direct 58 HDL Cholesterol 20 L 05/01/17 05:00 WBC RBC Hgb Hct MCV MCH MCHC RDW Plt Count MPV Lymph % (Auto) [place] % (Auto) Eos % (Auto) Lymph # [place] # Eos # Sodium 156 H* Potassium 3.0 L Chloride 121 H Carbon Dioxide 25 Anion Gap 13 BUN 28 H Creatinine 0.7 Est GFR ( Amer) > 60 Est GFR (Non-Af Amer) > 60 Random Glucose 104 Calcium 8.2 L Phosphorus 2.8 Magnesium 2.0 Iron TIBC % Saturation Total Bilirubin 0.6 AST 54 H D ALT 36 Alkaline Phosphatase 62 Lactate Dehydrogenase 2954 H Total Protein 5.9 Albumin 3.6 Globulin 2.4 Albumin/Globulin Ratio 1.5 Triglycerides Cholesterol LDL Cholesterol Direct HDL Cholesterol Attending/Attestation - Attestation I have personally seen and examined this patient.: Yes I have fully participated in the care of the patient.: Yes I have reviewed all pertinent clinical information: Yes Notes (Text): 05/01/17 05:24 I agree with the above mentioned note and exam by the resident with the addition of the followin81 y/o female with a PMHx as described above was sent to the ED from her nursing facility due to the fact that nursing staff felt she appeared altered and was not behaving as her usual self. Upon my conversation with the patient' s POA, she stated that she has not seen the patient recently to know exactly what change in mentation was occurring but rather the nursing staff informed her of the patient behaving out of the ordinary by drooling more frequently and "zoning off." Patient was found to have significant leukocytosis of over 560 ( confirmed with repeat labs). 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 Patient required emergent leukopheresis so a shiley cathter was placed and I discussed the case with diamante (Dr. Gardiner) to initiate the leukopheresis. Patient underwent one session thus far earlier tonight, will likely require additional sessions to avoid TLS; will defer to heme/onc regarding continued leukopheresis decisions. Patient is being provided with supportive care otherwise and appears hemodynamically stable labs and images available to myself from today have been reviewed personally total time of care: 50 minutes
[2017-04-30 20:19] LABS: URIC ACID 12.9 mg/dL (2.5-6.2)
[2017-04-30] MEDS ORDERED: Cefepime 1gm in NS 100ml 1 GM/100 ML BAG IVPB SCH (20:45)
[2017-04-30] MEDS ORDERED: Sodium Chloride 0.9% 1,000 ML IV SCH (20:45)
[2017-04-30] MEDS ORDERED: Albumin Human 5% (12.5 gm/250 ml) IV SCH (21:00)
--- NOTE | 2017-04-30 21:23 | CP.PCM.CON ---
History of Present Illness - History of Present Illness History of Present Illness: Surgery Consult note. Dr. Bowen Surgery team consulted for Shiley Catheter placement 81yo F with PMHx of HTN, Dementia, Schizophrenia, Renal Cell CA s/p partial nephrectomy, CML, here for evaluation for altered mental status. Patient history obtained from chart review. Patient is a resident of [facility]. She was found today by shelter staff noted to be lethargic. Pt's daughter was contacted by the staff and she was transferred to [facility] for further workup. In the ED, WBC found to be 567. Surgery was consulted for Shiley Catheter placement due to plan for leukopheresis. 12-point ROS unobtainable due to patient's current and baseline condition. PMHx: HTN, Dementia, Schizophrenia, Renal Cell CA s/p partial nephrectomy, CML PSHx: Partial nephrectomy Social Hx: Resident of [facility]; iVnod Mir (granddaughter, POA) Allergy: Enalapril Review of Systems - Review of Systems Systems not reviewed;Unavailable: Dementia, Altered Mental Status Past Patient History - Infectious Disease Hx of Infectious Diseases: None - Tetanus Immunizations Tetanus Immunization: Unknown - Past Social History Smoking Status: Never Smoked - CARDIAC Hx Cardiac Disorders: Yes Hx Hypertension: Yes - PULMONARY Hx Respiratory Disorders: No - NEUROLOGICAL Hx Neurological Disorder: Yes Hx Dementia: Yes - HEENT Hx HEENT Problems: No - RENAL Hx Chronic Kidney Disease: No - ENDOCRINE/METABOLIC Hx Endocrine Disorders: No - HEMATOLOGICAL/ONCOLOGICAL Hx Blood Disorders: No Hx Blood Transfusions: No - INTEGUMENTARY Hx Dermatological Problems: No - MUSCULOSKELETAL/RHEUMATOLOGICAL Hx Musculoskeletal Disorders: No Hx Falls: No - GASTROINTESTINAL Hx Gastrointestinal Disorders: No - GENITOURINARY/GYNECOLOGICAL Hx Genitourinary Disorders: No - PSYCHIATRIC Hx Psychophysiologic Disorder: No Hx Emotional Abuse: No Hx Physical Abuse: No Hx Substance Use: No - SURGICAL HISTORY Other/Comment: partial nephrectomy for renal cell ca - ANESTHESIA Hx Anesthesia Reactions: No Hx Malignant Hyperthermia: No Meds Allergies/Adverse Reactions: Allergies Allergy/AdvReac Type Severity Reaction Status Date / Time enalapril Allergy ANGIOEDEMA Verified 04/30/17 16:08 - Medications Medications: Current Medications Docusate Sodium (Colace) 200 mg PO DAILY JOSE Enoxaparin Sodium (Lovenox) 40 mg SC DAILY JOSE PRN Reason: Protocol Famotidine (Pepcid) 20 mg PO DAILY JOSE Ferrous Sulfate (Feosol) 324 mg PO DAILY JOSE Furosemide (Lasix) 20 mg PO DAILY JOSE Sodium Chloride (Sodium Chloride 0.9%) 1,000 mls @ 100 mls/hr IV .Q10H JOSE Last Admin: 04/30/17 21:02 Dose: 100 mls/hr Cefepime HCl (Maxipime 1gm) 1 gm in 100 mls @ 100 mls/hr IVPB Q24H JOSE PRN Reason: Protocol Albumin Human (Albumin Human 5% (12.5 Gm/250 Ml)) 2,500 mls @ 4 mls/min IV ONCE ONE Stop: 05/01/17 07:39 Lorazepam (Ativan) 0.5 mg PO BID PRN; Protocol PRN Reason: Anxiety Megestrol Acetate (Megace) 400 mg PO DAILY JOSE Non-Formulary Medication (Ergocalciferol (Vitamin D2) [Vitamin D2]) 400 iu PO DAILY JOSE Pantoprazole Sodium (Protonix Inj) 40 mg IVP DAILY JOSE Potassium Chloride (Klor-Con 10) 10 meq PO WED JOSE Quetiapine Fumarate (Seroquel) 25 mg PO HS JOSE PRN Reason: Protocol Physical Exam - Constitutional Appears: Confused, Cachectic, Chronically Ill - Head Exam Head Exam: ATRAUMATIC, NORMAL INSPECTION, NORMOCEPHALIC - Eye Exam Eye Exam: EOMI - ENT Exam ENT Exam: Mucous Membranes Moist - Respiratory Exam Respiratory Exam: NORMAL BREATHING PATTERN. absent: Accessory Muscle Use, Respiratory Distress - GI/Abdominal Exam GI & Abdominal Exam: Soft. absent: Distended, Firm, Guarding, Tenderness Additional comments: lower midline laparotomy scar noted - Extremities Exam Additional comments: palpable femoral pulses bilaterally - Neurological Exam Additional comments: Altered, decreased mentation. Incomprehensible sounds. Localizes to painful stimuli. - Skin Skin Exam: Dry, Intact, Normal Color, Warm Results - Vital Signs Recent Vital Signs: Last Vital Signs Temp 98.9 F 04/30/17 16:38 Pulse 99 H 04/30/17 19:00 Resp 24 04/30/17 19:00 BP 154/90 H 04/30/17 19:00 Pulse Ox 95 04/30/17 19:00 - Labs Result Diagrams: 04/30/17 17:25 04/30/17 16:45 Assessment & Plan - Assessment and Plan (Free Text) Assessment: 81yo F with Hx of CML, here with probable leukemoid reaction. Surgery consulted for Shiley catheter placement - Telephone consent obtained from Adeola Brock, grand daughter and POA. Planned procedure discussed in detail and consent was obtained. - Will plan for Shiley catheter placement in Left femoral vein - Please refer to the procedure note Further recs as per Dr. Andrés Fernandez PGY1 surgery pager: [phone]
[2017-04-30 21:55] LABS: HDL CHOLESTEROL 20 mg/dL (29-60); LDL CHOLESTEROL 58 mg/dL (0-129)
[2017-04-30 22:31] LABS: IRON 68 ug/dL (45-180)
--- NOTE | 2017-04-30 22:31 | CT ---
EXAM: CT Chest Without Intravenous Contrast CLINICAL HISTORY: 81 years old, female; Signs and symptoms; Other: Eval for abscess/infection; Wbc >500 TECHNIQUE: Axial computed tomography images of the chest without intravenous contrast. All CT scans at this facility use one or more dose reduction techniques, viz.: automated exposure control; ma/kV adjustment per patient size (including targeted exams where dose is matched to indication; i.e. head); or iterative reconstruction technique. Coronal and sagittal reformatted images were created and reviewed. COMPARISON: There are no prior studies for comparison. FINDINGS: Artifacts: Motion artifact degrades image quality. Lungs and pleural spaces: Trachea and main bronchi are patent. There is linear pleural thickening at the right apex. There is nodular pleural thickening and scarring at the left apex. There is a 3.2 mm peripheral right upper lobe nodule. There is focal elevation of right diaphragm. There is compressive atelectasis in the right lower lobe. The there is airspace disease at the left base with air bronchograms. There is a small left effusion. There is no definite right effusion. Heart and vasculature: The heart is enlarged. There are coronary artery calcifications.There is trace fluid in pericardial recesses.Aorta and main pulmonary artery are normal in caliber.There are vascular calcifications. Mediastinum: There are mildly prominent mediastinal nodes.Lesley are not optimally evaluated without contrast material. The esophagus is not optimally evaluated. Thyroid: Thyroid is not optimally demonstrated. Bones/joints: Bony structures are osteopenic. There are degenerative changes. There is mild exaggeration of thoracic kyphosis. Soft tissues: unremarkable Upper abdomen: Refer to following report for abdominal findings IMPRESSION: Left lower lobe airspace disease, infiltrate and/or atelectasis with small left effusion; elevated right diaphragm with compressive atelectasis at the right base; indeterminate 3.2 mm right upper lobe nodule; cardiomegaly and atherosclerotic disease; prominent mediastinal nodes For low-risk patients, no follow-up is necessary. For high-risk patients (smoking history or other known risk factors) an optional chest CT at 12 months could be performed. EXAM: CT Abdomen and Pelvis Without Intravenous Contrast EXAM DATE/TIME: 04/30/2017 8:35 PM CLINICAL HISTORY: 81 years old, female; Signs and symptoms; Other: Eval for abscess/infection; Wbc >500 TECHNIQUE: Axial computed tomography images of the abdomen and pelvis without intravenous contrast. All CT scans at this facility use one or more dose reduction techniques, viz.: automated exposure control; ma/kV adjustment per patient size (including targeted exams where dose is matched to indication; i.e. head); or iterative reconstruction technique. Coronal and sagittal reformatted images were created and reviewed. COMPARISON: CT - ABD PELVIS W/O PO OR IV CONT 2016-01-15 17:25 FINDINGS: Lower thorax: Refer to prior report for chest findings ABDOMEN: Liver: The liver is enlarged, 23 cm in length. Gallbladder and bile ducts: Partially distended gallbladder is in the right lower quadrant. Common duct is not well-visualized. Pancreas: Pancreas is poorly visualized. Spleen: The spleen is enlarged 16 cm in length. Adrenals: unremarkable Kidneys and ureters: Right kidney is unremarkable. There are calcifications associated with the left kidney difficult to characterize. Stomach and bowel: Stomach is almost empty. Stomach is compressed. There is no small bowel obstruction. There are scattered air-fluid levels in small bowel. There is a distended bowel loop at the level of the bowel anastomosis in November. Appendix: See stomach and bowel PELVIS: Bladder: Bladder is empty. There is a Brooks catheter. There is bladder wall thickening. Reproductive: Uterus and adnexa are poorly visualized and may be absent ABDOMEN and PELVIS: Intraperitoneal space: No free air there is no definite free fluid. Bones/joints: Bony structures are osteopenic. There are degenerative changes. Soft tissues: There is body wall edema. There is a 2 cm soft tissue nodule in the right abdominal wall Vasculature: There are vascular calcifications. Lymph nodes: Paucity of body fat limits evaluation of the retroperitoneum. Retroperitoneal adenopathy is suspected. IMPRESSION: Interval development of hepatosplenomegaly, infectious/inflammatory versus neoplastic; para-aortic adenopathy cannot be excluded; no bowel obstruction; empty bladder with Brooks catheter and bladder wall thickening; new right abdominal wall cutaneous nodule; atherosclerotic disease Additional nonemergent findings as described above.
[2017-04-30 22:41] LABS: % IRON SATURATION 19 % (20-55); TOTAL IRON BINDING CAPACITY 354 ug/dL (265-497)
[2017-04-30 22:55] VITALS: BMI 21.2
[2017-04-30] MEDS ORDERED: Pneumococcal 23-Valent Vaccine IM ONE (22:55)
[2017-04-30] MEDS ORDERED: Influenza Vaccine 60 mcg/0.5 mL SYR (4YR UP) IM ONE (22:55)
[2017-04-30 22:58] LABS: BASOPHIL 1 % (0.0-1.0); EOSINOPHIL 4 % (0.0-3.0); LYMPHOCYTE 17 % (22.0-35.0); MONOCYTE 5 % (1.0-6.0); NEUTROPHIL 31 % (50.0-70.0); NUCLEATED RED BLOOD CELL 32 %
[2017-04-30 22:59] LABS: PLATELET ESTIMATE NORMAL (NORMAL)
[2017-04-30 23:03] LABS: CORRECTED WBC 434.7 K/mm3 (4.5-11.0)
--- NOTE | 2017-04-30 23:36 | PCM.PROC ---
Procedures Attestation:: I certify that I have explained the specified Operation(s) or Procedure(s), risks, benefits and reasonable alternatives to the Patient and/or other person responsible. The opportunity was given to ask questions and all questions answered - Central Line Placement Left Femoral Hemodialysis Access Aseptic technique was employed throughout the procedure: Hand Hygiene done prior to procedure, Full sterile barriers (mask, hair cover, sterile gown, sterile gloves), Full body sterile drape, Chloraprep Antiseptic: 2 minute prep for Femoral CVP Time Out Performed: Yes Pt. Placed on Pulse Ox Monitor: No Central Line Prep: Chlorhexidine-Alcohol Combination Local Anesthesia Used: Lidocaine 1% Amount of Anesthesia Used (mls): 5 Ultrasound Used for Placement: Yes Central Line Lumen Inserted: triple Central Line Length: 20 cm Post Procedure: Sutured in Place, Good Blood Return, All Ports Aspirated, Flushed, Capped, Sterile Dressing Applied Secured by: Suture Post procedure dressing: Clear vapor permeable, Chlorhexidine disc (Biopatch) Post Procedure X-Ray: No Patient Tolerated Procedure: Well, No Complications Immediate Complications: None Additional Comments: Telephone consent obtained from Adeola Vinod, grand daughter and MARY BETH
--- NOTE | 2017-05-01 00:57 | CP.PCM.PCO ---
Assessment & Plan - Assessment and Plan (Free Text) Plan: [facility] contacted for leukopharesis. They will arrange leukopharesis as soon as possible. Discussed with Dr. Magiure. They were provided with patient information.
[2017-05-01 04:55] LABS: MEAN CELL VOLUME 109.6 fl (80.0-105.0); MEAN CORPUSCULAR HEMOGLOBIN 37.7 pg (25.0-35.0); MEAN CORPUSCULAR HGB CONC 34.4 g/dl (31.0-37.0); RBC 1.67 10^6/uL (3.5-6.1)
[2017-05-01 04:56] LABS: MEAN PLATELET VOLUME 10.8 fl (7.0-11.0); MONO % 1.6 % (1.0-6.0); PLATELET COUNT 105 10^3/uL (120.0-450.0); RED CELL DISTRIBUTION WIDTH 19.3 % (11.5-14.5)
[2017-05-01 04:57] LABS: EOS # 4.5 (0.0-0.7); EOS % 1.3 % (1.5-5.0); LYMPH # 19.9 (1.2-3.4); MONO # 5.2 (0.1-0.6)
[2017-05-01 05:05] LABS: HEMOGLOBIN 6.3 g/dL (12.0-16.0); WHITE BLOOD COUNT 330.6 10^3/ul (4.5-11.0)
[2017-05-01 05:19] LABS: ALB/GLOB RATIO 1.5 (1.1-1.8); ALBUMIN 3.6 g/dL (3.0-4.8); ALT/SGPT 36 U/L (7-56); AST/SGOT 54 U/L (14-36); BLOOD UREA NITROGEN 28 mg/dL (7-21); CALCIUM 8.2 mg/dL (8.4-10.5); GFR AFRICAN-AMERICAN > 60; GFR NON-AFRICAN AMERICAN > 60
[2017-05-01 06:02] LABS: INR 1.76 (0.93-1.08); PARTIAL THROMBOPLASTIN TIME 31.6 Seconds (25.1-36.5); PROTHROMBIN TIME 20.5 SECONDS (9.4-12.5)
[2017-05-01 07:29] LABS: MEAN CELL VOLUME 112.1 fl (80.0-105.0); MEAN CORPUSCULAR HEMOGLOBIN 37.4 pg (25.0-35.0); MEAN CORPUSCULAR HGB CONC 33.3 g/dl (31.0-37.0); MEAN PLATELET VOLUME 10.9 fl (7.0-11.0); PLATELET COUNT 98 10^3/uL (120.0-450.0); RBC 1.74 10^6/uL (3.5-6.1); RED CELL DISTRIBUTION WIDTH 19.3 % (11.5-14.5)
[2017-05-01 07:32] LABS: WHITE BLOOD COUNT 342.8 10^3/ul (4.5-11.0)
[2017-05-01 07:33] LABS: HEMOGLOBIN 6.5 g/dL (12.0-16.0)
--- NOTE | 2017-05-01 08:14 | RAD ---
HISTORY: Sepsis Patient COMPARISON: 01/15/2016 FINDINGS: LUNGS: No active pulmonary disease. PLEURA: No significant pleural effusion identified, no pneumothorax apparent. CARDIOVASCULAR: Normal. OSSEOUS STRUCTURES: No significant abnormalities. VISUALIZED UPPER ABDOMEN: Normal. OTHER FINDINGS: None. IMPRESSION: No active disease.
--- NOTE | 2017-05-01 08:44 | CP.PCM.PN ---
Subjective - Date & Time of Evaluation Date of Evaluation: 05/01/17 Time of Evaluation: 06:50 - Subjective Subjective: Surgery Progress note. Dr. Bowen Pt seen and examined at bedside. Still lethargic, responds/localizes to painful stimuli, confused, does note respond appropriately. Received Leukopheresis last night. H/H low this morning, pending repeat H/H. Objective - Vital Signs/Intake and Output Vital Signs (last 24 hours): Temp Pulse Resp BP Pulse Ox 99.0 F 91 H 19 139/67 100 04/30/17 23:00 05/01/17 01:50 05/01/17 01:50 05/01/17 01:45 05/01/17 01:00 - Medications Medications: Current Medications Acetaminophen (Tylenol 650 Mg Supp) 650 mg RC Q4H PRN PRN Reason: Fever >100.4 F Allopurinol (Zyloprim) 100 mg PO BID JOSE Docusate Sodium (Colace) 200 mg PO DAILY JOSE Enoxaparin Sodium (Lovenox) 40 mg SC DAILY JOSE PRN Reason: Protocol Ferrous Sulfate (Feosol) 324 mg PO DAILY JOSE Furosemide (Lasix) 20 mg PO DAILY JOSE Sodium Chloride (Sodium Chloride 0.9%) 1,000 mls @ 100 mls/hr IV .Q10H JOSE Last Admin: 04/30/17 21:02 Dose: 100 mls/hr Meropenem (Merrem Iv 1 Gm Premix) 50 mls @ 100 mls/hr IVPB Q8 JOSE PRN Reason: Protocol Stop: 05/10/17 08:46 Lorazepam (Ativan) 0.5 mg PO BID PRN; Protocol PRN Reason: Anxiety Megestrol Acetate (Megace) 400 mg PO DAILY JOSE Non-Formulary Medication (Ergocalciferol (Vitamin D2) [Vitamin D2]) 400 iu PO DAILY JOSE Pantoprazole Sodium (Protonix Inj) 40 mg IVP DAILY JOSE Potassium Chloride (Klor-Con 10) 10 meq PO WED JOSE Quetiapine Fumarate (Seroquel) 25 mg PO HS JOSE PRN Reason: Protocol - Labs Labs: 05/01/17 06:30 05/01/17 05:00 PT 20.5 SECONDS (9.4-12.5) H 05/01/17 04:40 INR 1.76 (0.93-1.08) H 05/01/17 04:40 APTT 31.6 Seconds (25.1-36.5) 05/01/17 04:40 - Constitutional Appears: No Acute Distress, Confused, Cachectic, Chronically Ill - Head Exam Head Exam: ATRAUMATIC, NORMAL INSPECTION, NORMOCEPHALIC - GI/Abdominal Exam Additional comments: left femoral Dialysis catheter, no evidence of ecchymosis or hematoma. No tenderness at puncture site. Abd soft, non-distended, non-tender. No dependent ecchymosis. - Extremities Exam Extremities Exam: Normal Inspection. absent: Calf Tenderness - Neurological Exam Additional comments: Confused, altered. Does not respond appropriately. Baseline dementia. Assessment and Plan - Assessment and Plan (Free Text) Assessment: 81yo F with leukomoid reaction. S/p L femoral Shiley catheter 04/30 at bedside. - No signs of complications at this time - f/u CBC s/p leukopheresis last night - Please re-consult as necessary. Further recs as per Dr. Andrés Fernandez PGY1 surgery pager: [phone]
--- NOTE | 2017-05-01 09:43 | PN ---
DATE: 05/01/2017 APPARATUS LINEMAN NOTE SUBJECTIVE: The patient is resting in bed with O2 via nasal cannula, still very confused and slightly lethargic. The patient had leukapheresis last night and her white count has started to decrease. It is noted that she has a significant anemia as well. No nauseousness or vomiting. No diarrhea. No obvious pain. PHYSICAL EXAMINATION: VITAL SIGNS: Note that her temperature is 99.0, pulse is 91, respirations are 19, and BP is 139/67. SKIN: Warm and dry. HEENT: Head is atraumatic, normocephalic. Eyes are reactive to light. Ears, nose, and throat seemed to be within normal limits. NECK: Supple. No JVD. No thyroid enlargement, no lymph nodes. HEART: Regular rate and rhythm. Normal S1 and S2. LUNGS: Reveal good breath sounds bilaterally with mild rhonchi at the bases. ABDOMEN: Soft. Decreased bowel sounds. GENITALIA AND RECTAL: Deferred. MUSCULOSKELETAL: No joint deformities. EXTREMITIES: Reveal no significant edema. NEUROLOGIC: She is lethargic, but moving all extremities. LABORATORY DATA: As far as her laboratories are concerned, the patient's white count is 342,000, hemoglobin is 6.5, and hematocrit is 19.5 with platelets of 95. Sodium is 156, potassium is 3.0, chloride is 121, CO2 is 25, BUN of 28, creatinine of 0.7, and glucose of 104. IMPRESSION: The patient has history of chronic myeloid leukemia and presents with severe leukocytosis and at this time has anemia. The patient has a history of hepatosplenomegaly, etiology unclear, also hypertension and dementia as well as schizophrenia. CT of the chest realized that she has left lower lobe infiltrate, possible pneumonia, and left-sided small pleural effusion. She has right lower lobe atelectasis as well. The patient is noted to have hypokalemia as well as hypernatremia. PLAN: We will correct her electrolytes as needed. The patient is on O2 via nasal cannula. She is scheduled for leukapheresis today and we will most likely give packed red blood cell transfusion during that time. This is as per Hematology. The patient is getting ferrous sulfate as well as potassium. She has been started on p.o. Lasix and Lovenox. The patient is on antibiotics of cefepime and is getting Megace as well as Protonix and her Seroquel. We will continue with IV fluids and she is also going to be followed closely by Hematology and we will continue to treat aggressively along with the other consultants and the primary care doctor. Wilton De La Cruz MD
[2017-05-01] MEDS: Vancomycin 1gm in NS 250ml 1 GM/250 ML BAG IVPB SCH ×2 (10:00→20:44)
[2017-05-01 11:53] LABS: FOLATE > 20.0 ng/mL
--- NOTE | 2017-05-01 12:04 | CT ---
PROCEDURE: CT Pelvis without contrast HISTORY: hb drop COMPARISON: CT abdomen and pelvis 04/30/2017 TECHNIQUE: Contiguous axial images of the pelvis . No intravenous or oral contrast given. Coronal and sagittal reformats generated. Radiation dose: Total exam DLP = 274 mGy-cm. This CT exam was performed using one or more of the following dose reduction techniques: Automated exposure control, adjustment of the mA and/or kV according to patient size, and/or use of iterative reconstruction technique. FINDINGS: BLADDER: Unremarkable. No mass. Brooks catheter in the bladder REPRODUCTIVE ORGANS: Not visualize VISUALIZED BOWEL: Unremarkable. PERITONEUM: Unremarkable, as visualized. No free fluid. No free air. LYMPH NODES: Unremarkable. No enlarged lymph nodes. BONES: No fracture or focal lesion. VASCULATURE: There is a left femoral catheter OTHER FINDINGS: No evidence of hemorrhage IMPRESSION: No evidence of hemorrhage
[2017-05-01] MEDS: Megestrol Acetate 40 mg/ml Cup PO SCH (12:50)
[2017-05-01] MEDS: Enoxaparin 40 mg Syringe SC SCH (12:50)
[2017-05-01] MEDS: Meropenem IV 1 gm in NS 50 ML IVPB SCH ×2 (13:16→18:56)
[2017-05-01] MEDS: ERGOCALCIFEROL PO SCH (14:56)
[2017-05-01 18:28] LABS: HEMOGLOBIN 6.4 g/dL (12.0-16.0); MEAN CELL VOLUME 111.6 fl (80.0-105.0); MEAN CORPUSCULAR HEMOGLOBIN 37.2 pg (25.0-35.0); MEAN CORPUSCULAR HGB CONC 33.3 g/dl (31.0-37.0); MEAN PLATELET VOLUME 10.6 fl (7.0-11.0); PLATELET COUNT 67 10^3/uL (120.0-450.0); RBC 1.72 10^6/uL (3.5-6.1); RED CELL DISTRIBUTION WIDTH 19.1 % (11.5-14.5); WHITE BLOOD COUNT 320.7 10^3/ul (4.5-11.0)
--- NOTE | 2017-05-01 19:53 | CON ---
DATE: 05/01/2017 The patient was seen in the ICU 128, bed #6. The patient is admitted with a diagnosis of leukocytosis. CHIEF COMPLAINT: Weakness times several days. HISTORY OF PRESENT ILLNESS: This is an 81-year-old female with past medical history significant for hypertension, dementia, coronary artery disease and history of urinary tract infection, who is admitted through the Emergency Room. Yesterday, was seen by Dr. Shawn Alonzo. The patient was admitted with altered mental status and had a workup in the Emergency Room and the patient was seen by Dr. Shawn Alonzo, note is reviewed. The patient also with a history of schizophrenia, who was brought home from a halfway because change of mental status, found to have a fever in the Emergency Room. Infectious disease is called. REVIEW OF SYSTEMS: Reveals there has been fevers and no chills. Mild shortness of breath and minimal cough. No chest pain. No abdominal pain or diarrhea. No dysuria or frequency. PAST MEDICAL HISTORY: Significant for CML, followed by Dr. Gardner and hypertension, dementia, coronary artery disease, urinary tract infection and schizophrenia. PAST SURGICAL HISTORY: Noncontributory. MEDICATIONS: The patient's medications at home include Seroquel, Megace, lorazepam, Lasix and Pepcid. ALLERGIES: THE PATIENT IS AT ALLERGIC TO ENALAPRIL, SHE DEVELOPS ANGIOEDEMA. Medications are reviewed. PHYSICAL EXAMINATION: GENERAL: On exam she is in bed, chronically ill, appears much older than her stated age of 81. VITAL SIGNS: Temperature is 100.4, heart rate of 94 and respiratory rate 22 with a blood pressure of 130/60. HEENT: Unremarkable. NECK: Supple. LUNGS: Have decreased breath sounds. HEART: Normal S1 and S2. ABDOMEN: Soft and nontender. LABORATORY EXAMINATION: Reveals a white count of 573,000 with a hemoglobin of 9, MCV of 108, platelets of 173 and the differential is noted. There are 20 blast cells, 31% neutrophils and 17% lymphocytes. Coagulation is noted. Blood gases are reviewed. Chemistries reveals a BUN of 34, creatinine of 0.8, AST is 135, ALT of 49. LDH is 6141 and urinalysis is noted to be negative. Urine culture is negative. Blood cultures are pending. Procalcitonin is pending. Microbiology from previous admissions in 2015 and 2013 no growth in the blood and urine. The patient had a CAT scan of the chest and CAT scan of the abdomen and pelvis which showed a left lower lobe airspace disease and infiltrate, hepatosplenomegaly and the patient's oxygenation was down to 90% and 88% today. The patient also had a chest x-ray which is read as no active pulmonary disease. ASSESSMENT AND PLAN: This is an 81-year-old female with history of chronic myeloid leukemia, hypertension, dementia, coronary artery disease, urinary tract infection, schizophrenia, presenting with a fever of 100.4, tachycardia, dyspnea, leukocytosis, infiltrates, hypoxia severe sepsis with healthcare-associated possible gram-positive cocci, possible gram-negative aiyana pneumonia and we will check on the blood cultures, sputum cultures and check on the procalcitonin and treat the patient with vancomycin and meropenem and we will check on the urine for Legionella antigen. We will follow closely with you. Pending initial workup results. Josh Rivers MD
[2017-05-01] MEDS ORDERED: Dextrose 5%/0.45% NS 1,000 ML IV SCH (19:57)
[2017-05-01 20:19] LABS: URINE BILIRUBIN NEGATIVE (NEGATIVE); URINE BLOOD LARGE (NEGATIVE); URINE GLUCOSE (UA) NEGATIVE (NEGATIVE); URINE LEUKOCYTE ESTERASE MODERATE Leu/uL (NEGATIVE); URINE NITRATE NEGATIVE (NEGATIVE); URINE PROTEIN 30 mg/dL (<30 mg/dL)
[2017-05-01 20:28] LABS: URINE APPEARANCE SL CLOUDY (CLEAR); URINE COLOR YELLOW (YELLOW)
[2017-05-01 20:48] LABS: URINE RBC 20 - 25 /hpf (0-2)
[2017-05-01 20:49] LABS: URINE BACTERIA MOD (NEG); URINE EPITHELIAL CELLS 0 - 2 /hpf (0-5)
[2017-05-01] MEDS ORDERED: Albumin Human 5% (12.5 gm/250 ml) IV ONE (21:45)
--- NOTE | 2017-05-02 00:47 | CON ---
DATE: 05/01/2017 REASON FOR CONSULTATION: Leukocytosis, altered mental status. HISTORY OF PRESENT ILLNESS: Ms. Hobbs is an 81-year-old female was brought by [facility] to [facility] for lethargy. White count was found to be 500,000. She has baseline dementia, but mental status was altered for past one day. Denies any bleeding from any site, history of hypertension, blood pressure control with current medication, dementia has been stable unless past one day, history of renal cancer, partial nephrectomy. White count is elevated to 500,000. PAST MEDICAL HISTORY: Hypertension, dementia and history of renal cancer. FAMILY HISTORY: Noncontributory. PERSONAL HISTORY: Never smoked. No history of alcohol abuse. ALLERGIES: ENALAPRIL CAUSES ANGIOEDEMA. HOME MEDICATIONS: Colace 200 mg daily, ferrous sulphate 325 mg daily, Lasix 20 mg daily, Ativan 0.5 mg p.o. b.i.d., Megace 400 mg p.o. daily and potassium supplement. REVIEW OF SYSTEMS: Could not be obtained, lethargic, altered mental status. PHYSICAL EXAMINATION GENERAL: The patient is altered. VITAL SIGNS: Temperature 100.4, heart rate is 99 per minute, respiratory rate is 24 per minute, blood pressure is 154/90 and pulse ox is 100% on room air. HEENT: Oral mucosa dry. NECK: No lymphadenopathy. CHEST: Air entry is present and equal bilaterally. No added sounds. CARDIOVASCULAR: S1 and S2 normal. No murmur. No gallop. ABDOMEN: Hepatosplenomegaly. EXTREMITIES: No edema. JAVA FLEX DEVELOPER: Altered. LABORATORY DATA: White count 567,000, hemoglobin 9.4, hematocrit 26.9, and platelet count 171. Sodium 151, potassium 3.2, BUN 34, creatinine 0.8 and glucose 102. ASSESSMENT: 1. Leukocytosis. 2. Altered mental status. 3. Hypertension. 4. Anemia. PLAN: The patient is admitted to the ICU. White count is elevated at 500,000. She will need emergent leukapheresis. [facility] contacted on 04/30/2017 at 10 o'clock p.m., they did one round of leukapheresis, white count declined to 300,000. Hemoglobin is 6.5. Two units of blood transfusion ordered. She will need repeat leukapheresis. Daughter is at bedside in the ICU, discussed with the granddaughter. She is saying, she never had any cancer diagnosis before. They were not informed that she has some abnormal white count before. Flow cytometry stat was sent out for looking lymphoma panel. Specimen was picked up at 5 p.m. tonight. Allopurinol 100 mg p.o. b.i.d. for renal prophylaxis. Continue IV hydration. Definitive treatment after flow cytometry result. [facility] informed for another round of leukapheresis as white count is still high at 300,000. Discussed with Dr. Patel. Discussed with Museum Host/Hostess Dr. Maguire. Ashwini Gardiner MD
[2017-05-02] MEDS: Meropenem IV 1 gm in NS 50 ML IVPB SCH ×3 (01:35→18:39)
--- NOTE | 2017-05-02 02:18 | CON ---
DATE: 05/01/2017 PULMONARY CRITICAL CARE CONSULT REASON FOR CONSULTATION: Change in mental status, found to have leukocytosis. HISTORY OF PRESENT ILLNESS: This is an 81-year-old female with known history of chronic myelocytic leukemia was followed by Oncology as an outpatient, hypertension, dementia, schizophrenia, renal cell carcinoma, history of partial nephrectomy brought into from prison. According to prison notes and chart, the patient has been more lethargic and sent to emergency room, found to have leukocytosis. Hematology/Oncology consulted. Also has acute hepatosplenomegaly with some lymphadenopathy, presently she is getting leukapheresis. No acute distress. Family is at bedside. No hemoptysis. No hematemesis. No hematuria. Also found to have severe anemia, receiving packed RBC with leukapheresis. PAST MEDICAL HISTORY: Hypertension, schizophrenia, renal cell carcinoma, history of partial nephrectomy, chronic myelocytic leukemia, history of GI bleed. FAMILY HISTORY: Positive for heart disease. SOCIAL HISTORY: No history of smoking or alcohol use. ALLERGIES: ALLERGY TO ENALAPRIL. MEDICATIONS: She is on Ativan 0.5 mg twice a day p.r.n., Colace 200 mg daily, vitamin D2 400 international unit, ferrous sulfate 324 mg daily, Lovenox 40 mg daily, Megace 400 mg daily, meropenem 1 g IV q.8 hours, Protonix 40 mg daily, Seroquel 25 mg at bedtime, IV fluid normal saline 100 mL per hour, Tylenol p.r.n., vancomycin 1 g IV q.12 hours, and allopurinol 100 mg twice a day. REVIEW OF SYSTEMS: She is awake and alert. Does not follow command. There is no cough. No sputum production. No hematuria. Had some rectal bleed. No leg pain or leg swelling. PHYSICAL EXAMINATION: GENERAL: Lying in the bed, does not respond much to command. VITAL SIGNS: Temperature is 98, heart rate is 85, respiratory rate is 18, blood pressure 127/94, and pulse oximetry 99% on nasal cannula. HEENT: Moist mucous membranes. No ulcer or thrush. NECK: Supple. No JVD. LUNGS: Fair airflow. No rhonchi. HEART: Normal S1 and S2. ABDOMEN: Soft and nontender. No organomegaly. EXTREMITIES: There is no edema. NEUROLOGIC: Awake, alert, and nonverbal, does not follow much command. LABORATORY DATA: Shows hemoglobin 6.4, hematocrit 19.2, WBC 320, platelet count is 67. INR 1.76. PTT is 32. ABG show pH 7.44, pCO2 of 37, pO2 of 50. Sodium 156, potassium 3.0, chloride 121, bicarbonate 25, BUN 28, creatinine 0.7, glucose 104, uric acid 12.9, calcium 8.2, phosphorus 2.8, magnesium 2.0. Iron is 68. AST is 54, ALT is 36, and alkaline phosphatase is 62. LDH 2954. Albumin is 3.6. Cholesterol is 118. Procalcitonin 0.52. TSH 0.38. Microbiology, blood culture and urine culture, so far there is no growth. Also CT of the pelvis is done this morning, which shows no evidence of hemorrhage. IMPRESSION AND PLAN: Chronic myelocytic leukemia with severe leukemoid reaction with severe anemia, hepatomegaly, splenomegaly, history of hypertension, and dementia. Case discussed with change room attendant Dr. Wilton De La Cruz. The patient is getting at present time leukapheresis, on broad spectrum antibiotics, blood transfusion being given, IV fluid being given. Gastric prophylaxis and SCDs to lower extremities. I spoke to family at bedside. Followup labs in the morning. Thank you and we will follow with you. Flako Rose MD
--- NOTE | 2017-05-02 02:51 | HP ---
CHIEF COMPLAINT: Altered mental status. HISTORY OF PRESENT ILLNESS: Ms. Anjel Hansen is a 81 years old female, a resident for [facility] with past medical history of hypertension, dementia, GI hemorrhages, schizophrenia, came from [facility] for lethargy. The granddaughter who was on the bedside and sister and sister's son was on the bedside. According to them, the patient has history of leukemia. Dr. Gardner was the patient's sewage plant supervisor oncologist and Dr. Santillan was the patient's primary care physician before the patient had to go to jail. The patient first went to [facility], then transferred to [facility] and now the patient was having altered mental status. We brought the patient to [facility]. The patient is not able to give review of systems. The patient's sister, granddaughter, and sister 's son was on the bedside. They gave me all information. PAST MEDICAL HISTORY: As per family, the patient had leukemia was getting treatment from Dr. Gardner, hypertension, dementia, GI hemorrhage, schizophrenia, hypertension. FAMILY HISTORY: Father and mother noncontributory. SOCIAL HISTORY: Habits; never smoked. No drug. No ethanol. ALLERGIES: THE PATIENT HAS ALLERGY WITH ENALAPRIL GIVING ANGIOEDEMA. HOME MEDICATIONS: Colace, vitamin B, Theosol, Lasix, Ativan, Megace, and potassium chloride. REVIEW OF SYSTEMS: The patient was seen and examined in the ICU. Sleepy and arousable. She is not able to give review of systems, but looks like does not have fever, has tachycardia. Positive for lethargy. PHYSICAL EXAMINATION VITAL SIGNS: Temperature 100.4, pulse 99, respirations 24, blood pressure 154/90. HEENT: Head is normocephalic, atraumatic. Eyes closed. Nose patent. Mucous membranes moist. NECK: Supple. No carotid bruits. No thyromegaly. CHEST: Bilaterally symmetrical. HEART: S1 and S2 positive. LUNGS: Cleat to auscultation. Good air exchange. Do not look in any respiratory distress. ABDOMEN: Soft. Bowel sounds present. No organomegaly. EXTREMITIES: No edema. No cyanosis. NEUROLOGICAL: The patient is sleepy and arousable. Responds to painful stimuli and makes incoherent sounds. LABORATORY DATA: White blood cell is 567.7, hemoglobin 9.4, hematocrit 26.9, and platelets 121,000. Sodium 151, potassium 3.2, BUN 34, creatinine 0.8, and glucose 102. ASSESSMENT AND PLAN: Ms. Anjel Hansen is an 81 years old lady with leukocytosis, anemia, hypernatremia, hypokalemia, came in with altered mental status, fever, rule out sepsis, hypernatremia. Discussion done with Dr. Ashwini Gardiner, sewage plant supervisor who ordered plasmapheresis, did arrangement in [facility]. [facility] contacted for leukapheresis. They will arrange leukapheresis as soon as possible. Dr. Gardiner had discussion done with Dr. Maguire, pharmacy informatics manager. The patient information was given and Dr. Gardiner did arrangement for flow cytometry also. The patient's pelvic, chest, and abdomen computerized axial tomography scan does show the lymph node enlargement. right upper lobe density, cardiomegaly, atherosclerotic heart disease, prominent mediastinal lymph nodes, hepatomegaly, paraaortic adenopathy. Discussion done with the family. According to them, the patient's hematologic doctor Dr. Gardner, discussion done with Dr. Gardiner. Cancer consult with Dr. Gardiner and could put with Dr. Gardner. Discussion done with Dr. Lomeli ,pharmacy informatics manager of that day and the patient's nurse. We will follow up. Makayla Patel MD MARTHA
[2017-05-02] MEDS ORDERED: Albumin Human 5% (12.5 gm/250 ml) IV ONE ×5 (06:00→06:15)
--- NOTE | 2017-05-02 06:50 | CP.CCUPN ---
<Elissa Rowland - Last Filed: 05/02/17 10:48> CCU Subjective - Physician Review Subjective (Free Text): 05/02/17 07:30 Patient seen and examined at bedside during third leukopheresis since admission. Nursing reported no acute events overnight. Patient still lethargic however slightly improved since admission. She responds and localizes to painful stimuli, however, is confused and does not responds to questions appropriately. Patient afebrile overnight and VSS. Patient passed swallow eval and recommended pureed with honey thick diet. Patient has not had a BM since admission but is making good urine. ROS unobtainable secondary to patient condition. Critical Care Time Spent (in minutes): 45 CCU Objective - Vital Signs / Intake & Output Vital Signs (Last 4 hours): Vital Signs Pulse 05/02/17 03:00 89 Intake and Output (Last 8hrs): Intake & Output 05/01/17 05/01/17 05/02/17 14:59 22:59 06:59 Intake Total 279 325 Balance 279 325 Intake: Blood Product 279 325 Apheresis Rbc Cp2d As3 Lr 279 2nd Unit [id number] Red Blood Cells Cpd As1 0 325 Lr Unit [id number] - Physical Exam Head: Positive for: Atraumatic, Normocephalic Pupils: Positive for: PERRL Extroacular Muscles: Positive for: EOMI Conjunctiva: Positive for: Normal Mouth: Positive for: Dry Nose (External): Positive for: Atraumatic Neck: Positive for: Normal Range of Motion. Negative for: Meningeal Signs Respiratory/Chest: Positive for: Clear to Auscultation, Good Air Exchange. Negative for: Respiratory Distress, Accessory Muscle Use, Wheezes, Rales, Rhonchi, Tachypneic Cardiovascular: Positive for: Regular Rate and Rhythm, Normal S1, S2. Negative for: Murmurs, Irregular Rhythm Abdomen: Positive for: Normal Bowel Sounds. Negative for: Tenderness, Distention, Peritoneal Signs, Rebound, Guarding, McBurney's Point Tender, Rovsing's Sign Present Upper Extremity: Positive for: Normal Inspection. Negative for: Cyanosis, Edema Lower Extremity: Positive for: Normal Inspection, Other (L femoral shiley in place- dressings c/d/i). Negative for: Edema Neurological: Positive for: Other (Responds to painful stimuli and makes incoherent sounds) Skin: Positive for: Warm, Dry, Normal Color. Negative for: Rashes Psychiatric: Positive for: Lethargic (Makes incohernet sounds) - Medications Active Medications: Active Medications Generic Name Dose Route Start Last Admin Trade Name Freq PRN Reason Stop Dose Admin Acetaminophen 650 mg 04/30/17 23:29 Tylenol 650 Mg Supp RC Q4H PRN Fever >100.4 F Allopurinol 100 mg 05/01/17 10:00 05/01/17 18:53 Zyloprim PO Not Given BID JOSE Docusate Sodium 200 mg 05/01/17 10:00 05/01/17 12:48 Colace PO 200 mg DAILY JOSE Administration Enoxaparin Sodium 40 mg 05/01/17 10:00 05/01/17 12:50 Lovenox SC 40 mg DAILY JOSE Administration Protocol Ferrous Sulfate 324 mg 05/01/17 10:00 05/01/17 12:49 Feosol PO 324 mg DAILY JOSE Administration Meropenem 50 mls @ 100 mls/hr 05/01/17 10:00 05/02/17 01:35 Merrem Iv 1 Gm Premix IVPB 100 mls/hr Q8H JOSE Administration Protocol Vancomycin HCl 1 gm in 250 mls @ 167 mls/hr 05/01/17 08:45 05/01/17 20:44 Vancomycin 1gm IVPB 05/10/17 08:46 167 mls/hr Q12H JOSE Administration Protocol Dextrose/Sodium Chloride 1,000 mls @ 50 mls/hr 05/01/17 19:57 05/01/17 20:45 Dextrose 5%/0.45% Ns 1000 Ml IV 50 mls/hr .Q20H JOSE Administration Calcium Gluconate 1,000 mg/ 110 mls @ 110 mls/hr 05/02/17 06:00 Sodium Chloride IVPB 05/02/17 06:59 ONCE ONE Lorazepam 0.5 mg 04/30/17 20:37 Ativan PO BID PRN Anxiety Protocol Megestrol Acetate 400 mg 05/01/17 10:00 05/01/17 12:50 Megace PO 400 mg DAILY JOSE Administration Non-Formulary Medication 400 iu 05/01/17 10:00 05/01/17 14:56 Ergocalciferol (Vitamin D2) [Vitamin D2] PO Not Given DAILY JOSE Pantoprazole Sodium 40 mg 05/01/17 10:00 05/01/17 12:53 Protonix Inj IVP 40 mg DAILY JOSE Administration Quetiapine Fumarate 25 mg 04/30/17 22:00 05/01/17 22:26 Seroquel PO 25 mg HS JOSE Administration Protocol - Patient Studies Lab Studies: Lab Studies 05/01/17 05/01/17 05/01/17 Range/Units 22:47 18:00 14:25 WBC 320.7 H* (4.5-11.0) 10^3/ul RBC 1.72 L (3.5-6.1) 10^6/uL Hgb 6.4 L* (12.0-16.0) g/dL Hct 19.2 L* (36.0-48.0) % MCV 111.6 H (80.0-105.0) fl MCH 37.2 H (25.0-35.0) pg MCHC 33.3 (31.0-37.0) g/dl RDW 19.1 H (11.5-14.5) % Plt Count 67 L (120.0-450.0) 10^3/uL MPV 10.6 (7.0-11.0) fl POC Glucose (mg/dL) 103 (65-110) mg/dL Vitamin B12 (239-931) pg/mL Folate ng/mL Urine Color Yellow (YELLOW) Urine Appearance Sl cloudy (CLEAR) Urine pH 6.0 (4.7-8.0) Ur Specific [place] 1.020 (1.005-1.035) Urine Protein 30 H (<30 mg/dL) mg/dL Urine Glucose (UA) Negative (NEGATIVE) mg/dL Urine Ketones Negative (NEGATIVE) mg/dL Urine Blood Large H (NEGATIVE) Urine Nitrate Negative (NEGATIVE) Urine Bilirubin Negative (NEGATIVE) Urine Urobilinogen 1.0 H (<1 E.U./dL) E.U./dL Ur Leukocyte Esterase Moderate H (NEGATIVE) Clara/uL Urine RBC 20 - 25 (0-2) /hpf Urine WBC 5 - 10 (0-6) /hpf Ur Epithelial Cells 0 - 2 (0-5) /hpf Urine Bacteria Mod (NEG) Blood Type Antibody Screen Crossmatch BBK History Checked 05/01/17 05/01/17 04/30/17 Range/Units 09:00 06:30 21:30 WBC 342.8 H* (4.5-11.0) 10^3/ul RBC 1.74 L (3.5-6.1) 10^6/uL Hgb 6.5 L* (12.0-16.0) g/dL Hct 19.5 L* (36.0-48.0) % MCV 112.1 H (80.0-105.0) fl MCH 37.4 H (25.0-35.0) pg MCHC 33.3 (31.0-37.0) g/dl RDW 19.3 H (11.5-14.5) % Plt Count 98 L (120.0-450.0) 10^3/uL MPV 10.9 (7.0-11.0) fl POC Glucose (mg/dL) (65-110) mg/dL Vitamin B12 > 1000 H (239-931) pg/mL Folate > 20.0 ng/mL Urine Color (YELLOW) Urine Appearance (CLEAR) Urine pH (4.7-8.0) Ur Specific [place] (1.005-1.035) Urine Protein (<30 mg/dL) mg/dL Urine Glucose (UA) (NEGATIVE) mg/dL Urine Ketones (NEGATIVE) mg/dL Urine Blood (NEGATIVE) Urine Nitrate (NEGATIVE) Urine Bilirubin (NEGATIVE) Urine Urobilinogen (<1 E.U./dL) E.U./dL Ur Leukocyte Esterase (NEGATIVE) Clara/uL Urine RBC (0-2) /hpf Urine WBC (0-6) /hpf Ur Epithelial Cells (0-5) /hpf Urine Bacteria (NEG) Blood Type O POSITIVE Antibody Screen Negative Crossmatch See Detail BBK History Checked Patient has bt Laboratory Results - last 24 hr 04/30/17 05/01/17 05/01/17 21:30 06:30 09:00 WBC 342.8 H* RBC 1.74 L Hgb 6.5 L* Hct 19.5 L* MCV 112.1 H MCH 37.4 H MCHC 33.3 RDW 19.3 H Plt Count 98 L MPV 10.9 POC Glucose (mg/dL) Vitamin B12 > 1000 H Folate > 20.0 Urine Color Urine Appearance Urine pH Ur Specific [place] Urine Protein Urine Glucose (UA) Urine Ketones Urine Blood Urine Nitrate Urine Bilirubin Urine Urobilinogen Ur Leukocyte Esterase Urine RBC Urine WBC Ur Epithelial Cells Urine Bacteria Blood Type O POSITIVE Antibody Screen Negative Crossmatch See Detail BBK History Checked Patient has bt 05/01/17 05/01/17 05/01/17 14:25 18:00 22:47 WBC 320.7 H* RBC 1.72 L Hgb 6.4 L* Hct 19.2 L* MCV 111.6 H MCH 37.2 H MCHC 33.3 RDW 19.1 H Plt Count 67 L MPV 10.6 POC Glucose (mg/dL) 103 Vitamin B12 Folate Urine Color Yellow Urine Appearance Sl cloudy Urine pH 6.0 Ur Specific [place] 1.020 Urine Protein 30 H Urine Glucose (UA) Negative Urine Ketones Negative Urine Blood Large H Urine Nitrate Negative Urine Bilirubin Negative Urine Urobilinogen 1.0 H Ur Leukocyte Esterase Moderate H Urine RBC 20 - 25 Urine WBC 5 - 10 Ur Epithelial Cells 0 - 2 Urine Bacteria Mod Blood Type Antibody Screen Crossmatch BBK History Checked Review of Systems - Review of Systems Systems not reviewed;Unavailable: Altered Mental Status Critical Care Progress Note - Nutrition Nutrition: Nutrition Category Date Time Status NPO Diet [DIET] Diets 04/30/17 Dinner Ordered Assessment/Plan - Assessment and Plan (Free Text) Assessment: 81yo F with PMHx of HTN, Dementia, Schizophrenia, Renal Cell CA s/p partial nephrectomy, CML, rectal bleed, here for evaluation for altered mental status. Admitted to ICU with WBC of 573.8 confirmed on repeat blood work on admission as 567.7 Plan: Neuro: -Head CT: atrophy and small vessel disease, age indeterminate basal ganglia lacunar infarcts, no bleed; sinus disease -Speech/Swallow eval -PT/OT -patient has baseline dementia Cardio: -No acute issues -Lipid panel: T Cholesterol: 118 LDL: 58 HDL: 20 -maintain MAP > 65 Pulm: -CT Chest: Left lwoer lobe airspace disease, infiltrate and/or atelectasis with small left effusion; elevated right diaphragm with compressive atelectasis at the right base; indeterminate 3.2mm right upper lobe nodule; cardiomegaly and atherosclerotic disease; prominent mediastinal nodes. -CXR: no active disease -Maintain sp02 > 90% -Dr. Rose consulted GI: -No acute issues -will advance diet to pureed w honey thickened liquids -Megace 400mg po qd -Colace 200mg po qd -Protonix 40mg ivp qd Renal: -Electrolytes repleted -D5 1/2NS @ 100cc/hr -Strict Is and Os -NS @ 100cc/hr -Allopurinol 100mg po bid -Lasix 20mg po qd -Brooks in place Endo: -no acute issues -Accucheck Heme/Onc: -WBC: 573.8 on admission --> 224.4 this AM s/p 3 leukophresis No need for leukophresis on AM of 05/03 as per Heme/Onc- monitor WBC -H&H this AM: 8.4 and 24.7 s/p 2U PRBC Patient to be transfused 1U PRBC this AM retic count: 2.68 -Platelet 44 this AM -Monitor closely -Hydroxyrea 1000mg po tid for 3 days [last dose 05/04/17] Will start patient on Hydroxyrea 500mg po qdaily on 05/05/17 -Allopurinol 100mg po bid Monitor uric acid daily -Patient needs to be started on Sprycel 100mg po qdaily - pharmacy contacted for medication -Feosol 324mg po qd -f/u flow cytometry -CT Abd/Pelvis: interval development of hepatosplenomegaly, infectious/ inflammatory vs neoplastic; para-aortic adenopathy cannot be excluded; no bowel obstruction; empty bladder with Brooks catheter and bladder wall thickening; new right abdominal wall cutaneous nodule; atherosclerotic disease. -Pelvis CT: no evidence of acute hemorrhage -[facility] contacted for leukopheresis -Albumin 2.5L ordered for fluid resuscitation -DVT ppx- Lovenox 40mg sc qd -Feosol 324mg po qd -Dr. Gardner consulted -[facility] contact information: ([phone]) ID: -blood culture: prelim neg x 2 -urine culture: neg -procalcitonin: 0.52 -Tylenol 650mg rc q4 prn temp -Vancomycin 1gm ivpb q12 day 2 -Merrem 1gm ivpb q8 day 2 -Dr. Rivers consulted Psych: -Seroquel 25mg po qhs -Ativan 0.5mg po bid prn GI ppx: protonix 40mg ivp qd DVT ppx: Lovenox 40mg sc qd and SCDs Diet: will advance diet to pureed w honey thickened liquids Discussed with Dr. Thomas Rowland PGY2 <Gonzalo Guzman - Last Filed: 05/02/17 12:37> CCU Objective - Vital Signs / Intake & Output Intake and Output (Last 8hrs): Intake & Output 05/01/17 05/02/17 05/02/17 22:59 06:59 14:59 Intake Total 279 1275 Output Total 300 Balance 279 975 Intake: IV 950 Left Forearm 350 d5 0.5ns 600 Blood Product 279 325 Apheresis Rbc Cp2d As3 Lr 279 2nd Unit [id number] Red Blood Cells Cpd As1 0 325 Lr Unit [id number] Output: Urine 300 Urethral (Brooks) 300 - Medications Active Medications: Active Medications Generic Name Dose Route Start Last Admin Trade Name Freq PRN Reason Stop Dose Admin Acetaminophen 650 mg 04/30/17 23:29 Tylenol 650 Mg Supp RC Q4H PRN Fever >100.4 F Allopurinol 100 mg 05/01/17 10:00 05/02/17 09:38 Zyloprim PO 100 mg BID JOSE Administration Docusate Sodium 200 mg 05/01/17 10:00 05/02/17 09:38 Colace PO 200 mg DAILY JOSE Administration Enoxaparin Sodium 40 mg 05/01/17 10:00 05/02/17 09:42 Lovenox SC 40 mg DAILY JOSE Administration Protocol Ferrous Sulfate 324 mg 05/01/17 10:00 05/02/17 09:38 Feosol PO 324 mg DAILY JOSE Administration Hydroxyurea 1,000 mg 05/02/17 11:15 Hydrea PO 05/05/17 00:00 TID JOSE Hydroxyurea 500 mg 05/05/17 10:00 Hydrea PO DAILY JOSE Meropenem 50 mls @ 100 mls/hr 05/01/17 10:00 05/02/17 01:35 Merrem Iv 1 Gm Premix IVPB 100 mls/hr Q8H JOSE Administration Protocol Vancomycin HCl 1 gm in 250 mls @ 167 mls/hr 05/01/17 08:45 05/01/17 20:44 Vancomycin 1gm IVPB 05/10/17 08:46 167 mls/hr Q12H JOSE Administration Protocol Potassium Phosphate 15 mmole/ 255 mls @ 42.5 mls/hr 05/02/17 08:30 05/02/17 09:19 Sodium Chloride IVPB 05/02/17 14:29 42.5 mls/hr ONCE ONE Administration Dextrose/Sodium Chloride 1,000 mls @ 100 mls/hr 05/02/17 10:45 05/02/17 11:02 Dextrose 5%/0.45% Ns 1000 Ml IV 100 mls/hr .Q10H JOSE Administration Lorazepam 0.5 mg 04/30/17 20:37 Ativan PO BID PRN Anxiety Protocol Megestrol Acetate 400 mg 05/01/17 10:00 05/02/17 09:37 Megace PO 400 mg DAILY JOSE Administration Non-Formulary Medication 400 iu 05/01/17 10:00 05/02/17 09:39 Ergocalciferol (Vitamin D2) [Vitamin D2] PO Not Given DAILY JOSE Pantoprazole Sodium 40 mg 05/01/17 10:00 05/02/17 09:37 Protonix Inj IVP 40 mg DAILY JOSE Administration Quetiapine Fumarate 25 mg 04/30/17 22:00 05/01/17 22:26 Seroquel PO 25 mg HS JOSE Administration Protocol - Patient Studies Lab Studies: Microbiology Studies 05/01/17 14:06 Urine Culture - Final Urine No Growth (<1,000 CFU/ML) Lab Studies 05/02/17 05/02/17 05/02/17 Range/Units 11:22 09:50 09:08 WBC 224.4 H* D (4.5-11.0) 10^3/ul RBC 2.54 L (3.5-6.1) 10^6/uL Hgb 8.4 L (12.0-16.0) g/dL Hct 24.7 L (36.0-48.0) % MCV 97.2 D (80.0-105.0) fl MCH 33.1 (25.0-35.0) pg MCHC 34.0 (31.0-37.0) g/dl RDW 21.1 H (11.5-14.5) % Plt Count 44 L* (120.0-450.0) 10^3/uL MPV 10.7 (7.0-11.0) fl Retic Count 2.68 H (0.5-1.5) % Sodium (132-148) mmol/L Potassium (3.6-5.0) mmol/L Chloride (98-107) mmol/L Carbon Dioxide (21-33) mmol/L Anion Gap (10-20) BUN (7-21) mg/dL Creatinine (0.7-1.2) mg/dl Est GFR ( Amer) Est GFR (Non-Af Amer) POC Glucose (mg/dL) 109 (65-110) mg/dL Random Glucose (70-110) mg/dL Calcium (8.4-10.5) mg/dL Phosphorus (2.5-4.5) mg/dL Magnesium (1.7-2.2) mg/dL Total Bilirubin (0.2-1.3) mg/dL AST (14-36) U/L ALT (7-56) U/L Alkaline Phosphatase (38-126) U/L Lactate Dehydrogenase (333-699) U/L Total Protein (5.8-8.3) g/dL Albumin (3.0-4.8) g/dL Globulin gm/dL Albumin/Globulin Ratio (1.1-1.8) Urine Color (YELLOW) Urine Appearance (CLEAR) Urine pH (4.7-8.0) Ur Specific [place] (1.005-1.035) Urine Protein (<30 mg/dL) mg/dL Urine Glucose (UA) (NEGATIVE) mg/dL Urine Ketones (NEGATIVE) mg/dL Urine Blood (NEGATIVE) Urine Nitrate (NEGATIVE) Urine Bilirubin (NEGATIVE) Urine Urobilinogen (<1 E.U./dL) E.U./dL Ur Leukocyte Esterase (NEGATIVE) Clara/uL Urine RBC (0-2) /hpf Urine WBC (0-6) /hpf Ur Epithelial Cells (0-5) /hpf Urine Bacteria (NEG) Blood Type Antibody Screen Crossmatch BBK History Checked 05/02/17 05/02/17 05/02/17 Range/Units 07:40 05:48 05:48 WBC 341.3 H* (4.5-11.0) 10^3/ul RBC 2.74 L (3.5-6.1) 10^6/uL Hgb 9.6 L D (12.0-16.0) g/dL Hct 27.7 L (36.0-48.0) % MCV 101.1 D (80.0-105.0) fl MCH 35.0 (25.0-35.0) pg MCHC 34.7 (31.0-37.0) g/dl RDW 22.3 H (11.5-14.5) % Plt Count 63 L (120.0-450.0) 10^3/uL MPV 11.3 H (7.0-11.0) fl Retic Count (0.5-1.5) % Sodium 157 H* (132-148) mmol/L Potassium 2.4 L* (3.6-5.0) mmol/L Chloride 119 H (98-107) mmol/L Carbon Dioxide 27 (21-33) mmol/L Anion Gap 13 (10-20) BUN 17 (7-21) mg/dL Creatinine 0.7 (0.7-1.2) mg/dl Est GFR ( Amer) > 60 Est GFR (Non-Af Amer) > 60 POC Glucose (mg/dL) 111 H (65-110) mg/dL Random Glucose 103 (70-110) mg/dL Calcium 8.5 (8.4-10.5) mg/dL Phosphorus 1.9 L (2.5-4.5) mg/dL Magnesium 2.0 (1.7-2.2) mg/dL Total Bilirubin 0.7 (0.2-1.3) mg/dL AST 57 H (14-36) U/L ALT 34 (7-56) U/L Alkaline Phosphatase 59 (38-126) U/L Lactate Dehydrogenase 2569 H (333-699) U/L Total Protein 5.7 L (5.8-8.3) g/dL Albumin 3.2 (3.0-4.8) g/dL Globulin 2.5 gm/dL Albumin/Globulin Ratio 1.3 (1.1-1.8) Urine Color (YELLOW) Urine Appearance (CLEAR) Urine pH (4.7-8.0) Ur Specific [place] (1.005-1.035) Urine Protein (<30 mg/dL) mg/dL Urine Glucose (UA) (NEGATIVE) mg/dL Urine Ketones (NEGATIVE) mg/dL Urine Blood (NEGATIVE) Urine Nitrate (NEGATIVE) Urine Bilirubin (NEGATIVE) Urine Urobilinogen (<1 E.U./dL) E.U./dL Ur Leukocyte Esterase (NEGATIVE) Clara/uL Urine RBC (0-2) /hpf Urine WBC (0-6) /hpf Ur Epithelial Cells (0-5) /hpf Urine Bacteria (NEG) Blood Type Antibody Screen Crossmatch BBK History Checked 05/01/17 05/01/17 05/01/17 Range/Units 22:47 18:00 14:25 WBC 320.7 H* (4.5-11.0) 10^3/ul RBC 1.72 L (3.5-6.1) 10^6/uL Hgb 6.4 L* (12.0-16.0) g/dL Hct 19.2 L* (36.0-48.0) % MCV 111.6 H (80.0-105.0) fl MCH 37.2 H (25.0-35.0) pg MCHC 33.3 (31.0-37.0) g/dl RDW 19.1 H (11.5-14.5) % Plt Count 67 L (120.0-450.0) 10^3/uL MPV 10.6 (7.0-11.0) fl Retic Count (0.5-1.5) % Sodium (132-148) mmol/L Potassium (3.6-5.0) mmol/L Chloride (98-107) mmol/L Carbon Dioxide (21-33) mmol/L Anion Gap (10-20) BUN (7-21) mg/dL Creatinine (0.7-1.2) mg/dl Est GFR ( Amer) Est GFR (Non-Af Amer) POC Glucose (mg/dL) 103 (65-110) mg/dL Random Glucose (70-110) mg/dL Calcium (8.4-10.5) mg/dL Phosphorus (2.5-4.5) mg/dL Magnesium (1.7-2.2) mg/dL Total Bilirubin (0.2-1.3) mg/dL AST (14-36) U/L ALT (7-56) U/L Alkaline Phosphatase (38-126) U/L Lactate Dehydrogenase (333-699) U/L Total Protein (5.8-8.3) g/dL Albumin (3.0-4.8) g/dL Globulin gm/dL Albumin/Globulin Ratio (1.1-1.8) Urine Color Yellow (YELLOW) Urine Appearance Sl cloudy (CLEAR) Urine pH 6.0 (4.7-8.0) Ur Specific [place] 1.020 (1.005-1.035) Urine Protein 30 H (<30 mg/dL) mg/dL Urine Glucose (UA) Negative (NEGATIVE) mg/dL Urine Ketones Negative (NEGATIVE) mg/dL Urine Blood Large H (NEGATIVE) Urine Nitrate Negative (NEGATIVE) Urine Bilirubin Negative (NEGATIVE) Urine Urobilinogen 1.0 H (<1 E.U./dL) E.U./dL Ur Leukocyte Esterase Moderate H (NEGATIVE) Clara/uL Urine RBC 20 - 25 (0-2) /hpf Urine WBC 5 - 10 (0-6) /hpf Ur Epithelial Cells 0 - 2 (0-5) /hpf Urine Bacteria Mod (NEG) Blood Type Antibody Screen Crossmatch BBK History Checked 05/01/17 Range/Units 09:00 WBC (4.5-11.0) 10^3/ul RBC (3.5-6.1) 10^6/uL Hgb (12.0-16.0) g/dL Hct (36.0-48.0) % MCV (80.0-105.0) fl MCH (25.0-35.0) pg MCHC (31.0-37.0) g/dl RDW (11.5-14.5) % Plt Count (120.0-450.0) 10^3/uL MPV (7.0-11.0) fl Retic Count (0.5-1.5) % Sodium (132-148) mmol/L Potassium (3.6-5.0) mmol/L Chloride (98-107) mmol/L Carbon Dioxide (21-33) mmol/L Anion Gap (10-20) BUN (7-21) mg/dL Creatinine (0.7-1.2) mg/dl Est GFR ( Amer) Est GFR (Non-Af Amer) POC Glucose (mg/dL) (65-110) mg/dL Random Glucose (70-110) mg/dL Calcium (8.4-10.5) mg/dL Phosphorus (2.5-4.5) mg/dL Magnesium (1.7-2.2) mg/dL Total Bilirubin (0.2-1.3) mg/dL AST (14-36) U/L ALT (7-56) U/L Alkaline Phosphatase (38-126) U/L Lactate Dehydrogenase (333-699) U/L Total Protein (5.8-8.3) g/dL Albumin (3.0-4.8) g/dL Globulin gm/dL Albumin/Globulin Ratio (1.1-1.8) Urine Color (YELLOW) Urine Appearance (CLEAR) Urine pH (4.7-8.0) Ur Specific [place] (1.005-1.035) Urine Protein (<30 mg/dL) mg/dL Urine Glucose (UA) (NEGATIVE) mg/dL Urine Ketones (NEGATIVE) mg/dL Urine Blood (NEGATIVE) Urine Nitrate (NEGATIVE) Urine Bilirubin (NEGATIVE) Urine Urobilinogen (<1 E.U./dL) E.U./dL Ur Leukocyte Esterase (NEGATIVE) Clara/uL Urine RBC (0-2) /hpf Urine WBC (0-6) /hpf Ur Epithelial Cells (0-5) /hpf Urine Bacteria (NEG) Blood Type O POSITIVE Antibody Screen Negative Crossmatch See Detail BBK History Checked Patient has bt Laboratory Results - last 24 hr 05/01/17 05/01/17 05/01/17 09:00 14:25 18:00 WBC 320.7 H* RBC 1.72 L Hgb 6.4 L* Hct 19.2 L* MCV 111.6 H MCH 37.2 H MCHC 33.3 RDW 19.1 H Plt Count 67 L MPV 10.6 Retic Count Sodium Potassium Chloride Carbon Dioxide Anion Gap BUN Creatinine Est GFR ( Amer) Est GFR (Non-Af Amer) POC Glucose (mg/dL) Random Glucose Calcium Phosphorus Magnesium Total Bilirubin AST ALT Alkaline Phosphatase Lactate Dehydrogenase Total Protein Albumin Globulin Albumin/Globulin Ratio Urine Color Yellow Urine Appearance Sl cloudy Urine pH 6.0 Ur Specific [place] 1.020 Urine Protein 30 H Urine Glucose (UA) Negative Urine Ketones Negative Urine Blood Large H Urine Nitrate Negative Urine Bilirubin Negative Urine Urobilinogen 1.0 H Ur Leukocyte Esterase Moderate H Urine RBC 20 - 25 Urine WBC 5 - 10 Ur Epithelial Cells 0 - 2 Urine Bacteria Mod Blood Type O POSITIVE Antibody Screen Negative Crossmatch See Detail BBK History Checked Patient has bt 05/01/17 05/02/17 05/02/17 22:47 05:48 05:48 WBC 341.3 H* RBC 2.74 L Hgb 9.6 L D Hct 27.7 L MCV 101.1 D MCH 35.0 MCHC 34.7 RDW 22.3 H Plt Count 63 L MPV 11.3 H Retic Count Sodium 157 H* Potassium 2.4 L* Chloride 119 H Carbon Dioxide 27 Anion Gap 13 BUN 17 Creatinine 0.7 Est GFR ( Amer) > 60 Est GFR (Non-Af Amer) > 60 POC Glucose (mg/dL) 103 Random Glucose 103 Calcium 8.5 Phosphorus 1.9 L Magnesium 2.0 Total Bilirubin 0.7 AST 57 H ALT 34 Alkaline Phosphatase 59 Lactate Dehydrogenase 2569 H Total Protein 5.7 L Albumin 3.2 Globulin 2.5 Albumin/Globulin Ratio 1.3 Urine Color Urine Appearance Urine pH Ur Specific [place] Urine Protein Urine Glucose (UA) Urine Ketones Urine Blood Urine Nitrate Urine Bilirubin Urine Urobilinogen Ur Leukocyte Esterase Urine RBC Urine WBC Ur Epithelial Cells Urine Bacteria Blood Type Antibody Screen Crossmatch BBK History Checked 05/02/17 05/02/17 05/02/17 07:40 09:08 09:50 WBC 224.4 H* D RBC 2.54 L Hgb 8.4 L Hct 24.7 L MCV 97.2 D MCH 33.1 MCHC 34.0 RDW 21.1 H Plt Count 44 L* MPV 10.7 Retic Count 2.68 H Sodium Potassium Chloride Carbon Dioxide Anion Gap BUN Creatinine Est GFR ( Amer) Est GFR (Non-Af Amer) POC Glucose (mg/dL) 111 H Random Glucose Calcium Phosphorus Magnesium Total Bilirubin AST ALT Alkaline Phosphatase Lactate Dehydrogenase Total Protein Albumin Globulin Albumin/Globulin Ratio Urine Color Urine Appearance Urine pH Ur Specific [place] Urine Protein Urine Glucose (UA) Urine Ketones Urine Blood Urine Nitrate Urine Bilirubin Urine Urobilinogen Ur Leukocyte Esterase Urine RBC Urine WBC Ur Epithelial Cells Urine Bacteria Blood Type Antibody Screen Crossmatch BBK History Checked 05/02/17 11:22 WBC RBC Hgb Hct MCV MCH MCHC RDW Plt Count MPV Retic Count Sodium Potassium Chloride Carbon Dioxide Anion Gap BUN Creatinine Est GFR ( Amer) Est GFR (Non-Af Amer) POC Glucose (mg/dL) 109 Random Glucose Calcium Phosphorus Magnesium Total Bilirubin AST ALT Alkaline Phosphatase Lactate Dehydrogenase Total Protein Albumin Globulin Albumin/Globulin Ratio Urine Color Urine Appearance Urine pH Ur Specific [place] Urine Protein Urine Glucose (UA) Urine Ketones Urine Blood Urine Nitrate Urine Bilirubin Urine Urobilinogen Ur Leukocyte Esterase Urine RBC Urine WBC Ur Epithelial Cells Urine Bacteria Blood Type Antibody Screen Crossmatch BBK History Checked Critical Care Progress Note - Nutrition Nutrition: Nutrition Category Date Time Status Dysphagia/Modified Consistency Diet [DIET] Diets 05/02/17 Breakfast Ordered Assessment/Plan - Assessment and Plan (Free Text) Plan: Patient seen and examined, with resident on rounds, agree with note with following additions/exceptions: Patient is 81yo female admitted with profound leukocytosis, s/p leukopharesis. Currently afebrile, HD stable, comfortable. On exam, awake, but not alert, does not follow commands, confused, Has baseline dementia. Labs WBC improving. hematology following. Dementia Leukocytosis Hypernatremia Recommend: - supp o2 as needed - follow up ID, antibiotics as per ID - follow up cultures - BP control - follow up hematology - start Hydroxyurea as per Heme - monitor WBC, monitor mental status - start D5W @100cc/hr - GI ppx - DVT ppx
[2017-05-02] MEDS ORDERED: Potassium Chloride 40 mEq/30 ml LIQ UD PO ONE (08:01)
[2017-05-02 08:02] LABS: ALB/GLOB RATIO 1.3 (1.1-1.8); ALBUMIN 3.2 g/dL (3.0-4.8); ALT/SGPT 34 U/L (7-56); AST/SGOT 57 U/L (14-36); BLOOD UREA NITROGEN 17 mg/dL (7-21); CALCIUM 8.5 mg/dL (8.4-10.5); GFR AFRICAN-AMERICAN > 60; GFR NON-AFRICAN AMERICAN > 60
[2017-05-02 08:03] LABS: HEMOGLOBIN 9.6 g/dL (12.0-16.0); MEAN CELL VOLUME 101.1 fl (80.0-105.0); MEAN CORPUSCULAR HGB CONC 34.7 g/dl (31.0-37.0); MEAN PLATELET VOLUME 11.3 fl (7.0-11.0); PLATELET COUNT 63 10^3/uL (120.0-450.0); RBC 2.74 10^6/uL (3.5-6.1); RED CELL DISTRIBUTION WIDTH 22.3 % (11.5-14.5)
[2017-05-02 08:14] LABS: WHITE BLOOD COUNT 341.3 10^3/ul (4.5-11.0)
[2017-05-02] MEDS ORDERED: Potassium Phosphate 3 mmol/ml Inj IV ONE (08:18)
[2017-05-02] MEDS ORDERED: Potassium Phosphate 15 MMOLE in Sodium Chloride 0.9% 250 ML IVPB ONE (08:30)
[2017-05-02] MEDS: Megestrol Acetate 40 mg/ml Cup PO SCH (09:37)
[2017-05-02] MEDS: ERGOCALCIFEROL PO SCH (09:39)
[2017-05-02] MEDS: Enoxaparin 40 mg Syringe SC SCH (09:42)
--- NOTE | 2017-05-02 09:42 | CP.PCM.PN ---
Subjective - Date & Time of Evaluation Date of Evaluation: 05/02/17 Time of Evaluation: 07:00 - Subjective Subjective: Surgery progress note. Dr. Bowen Pt seen and examined at bedside. No acute events overnight. Afebrile. 12-point ROS cannot be obtained due to baseline dementia. Surgery team requested to evaluate right leg masses and abdominal cutaneous mass. Objective - Vital Signs/Intake and Output Vital Signs (last 24 hours): Temp Pulse Resp BP Pulse Ox 98.0 F 82 18 139/66 97 05/02/17 04:00 05/02/17 08:19 05/02/17 08:19 05/02/17 08:15 05/02/17 01:20 Intake and Output: 05/02/17 05/02/17 06:59 18:59 Intake Total 1554 Output Total 300 Balance 1254 - Medications Medications: Current Medications Acetaminophen (Tylenol 650 Mg Supp) 650 mg RC Q4H PRN PRN Reason: Fever >100.4 F Allopurinol (Zyloprim) 100 mg PO BID [facility] Last Admin: 05/01/17 18:53 Dose: Not Given Docusate Sodium (Colace) 200 mg PO DAILY [facility] Last Admin: 05/01/17 12:48 Dose: 200 mg Enoxaparin Sodium (Lovenox) 40 mg SC DAILY [facility] PRN Reason: Protocol Last Admin: 05/01/17 12:50 Dose: 40 mg Ferrous Sulfate (Feosol) 324 mg PO DAILY [facility] Last Admin: 05/01/17 12:49 Dose: 324 mg Meropenem (Merrem Iv 1 Gm Premix) 50 mls @ 100 mls/hr IVPB Q8H [facility] PRN Reason: Protocol Last Admin: 05/02/17 01:35 Dose: 100 mls/hr Vancomycin HCl (Vancomycin 1gm) 1 gm in 250 mls @ 167 mls/hr IVPB Q12H [facility] PRN Reason: Protocol Stop: 05/10/17 08:46 Last Admin: 05/01/17 20:44 Dose: 167 mls/hr Dextrose/Sodium Chloride (Dextrose 5%/0.45% Ns 1000 Ml) 1,000 mls @ 50 mls/hr IV .Q20H [facility] Last Admin: 05/01/17 20:45 Dose: 50 mls/hr Potassium Chloride (Potassium Chloride 10 Meq/100 Ml) 10 meq in 100 mls @ 50 mls/hr IVPB ONCE ONE Stop: 05/02/17 09:59 Potassium Chloride (Potassium Chloride 10 Meq/100 Ml) 10 meq in 100 mls @ 50 mls/hr IVPB ONCE ONE Stop: 05/02/17 10:00 Potassium Phosphate 15 mmole/ (Sodium Chloride) 255 mls @ 42.5 mls/hr IVPB ONCE ONE Stop: 05/02/17 14:29 Last Admin: 05/02/17 09:19 Dose: 42.5 mls/hr Lorazepam (Ativan) 0.5 mg PO BID PRN; Protocol PRN Reason: Anxiety Megestrol Acetate (Megace) 400 mg PO DAILY [facility] Last Admin: 05/01/17 12:50 Dose: 400 mg Non-Formulary Medication (Ergocalciferol (Vitamin D2) [Vitamin D2]) 400 iu PO DAILY [facility] Last Admin: 05/01/17 14:56 Dose: Not Given Pantoprazole Sodium (Protonix Inj) 40 mg IVP DAILY [facility] Last Admin: 05/01/17 12:53 Dose: 40 mg Quetiapine Fumarate (Seroquel) 25 mg PO [facility] PRN Reason: Protocol Last Admin: 05/01/17 22:26 Dose: 25 mg - Labs Labs: 05/02/17 05:48 05/02/17 05:48 PT 20.5 SECONDS (9.4-12.5) H 05/01/17 04:40 INR 1.76 (0.93-1.08) H 05/01/17 04:40 APTT 31.6 Seconds (25.1-36.5) 05/01/17 04:40 - Constitutional Appears: Non-toxic, No Acute Distress - Head Exam Head Exam: ATRAUMATIC, NORMAL INSPECTION, NORMOCEPHALIC - Eye Exam Eye Exam: EOMI - ENT Exam ENT Exam: Mucous Membranes Moist - Respiratory Exam Respiratory Exam: NORMAL BREATHING PATTERN. absent: Accessory Muscle Use, Respiratory Distress - GI/Abdominal Exam GI & Abdominal Exam: Soft. absent: Distended, Firm, Guarding, Rigid, Tenderness Additional comments: No palpable abdominal cutaneous mass. - Extremities Exam Extremities Exam: Normal Inspection. absent: Calf Tenderness Additional comments: Right knee: two mobile small - Neurological Exam Neurological Exam: Altered, Awake Additional comments: baseline dementia - Skin Additional comments: Right thigh - soft, slightly eccymotic mass of distal right thigh, not particularly mobile. Right knee medial masses x2: Freely mobile small masses, no apparent tenderness to palpation. Assessment and Plan - Assessment and Plan (Free Text) Assessment: 81yo F with leukomoid reaction. S/p L femoral Shiley catheter 04/30 at bedside. Surgery team also requested to evaluate skin lesions. - Continue medical management - no plans for any acute surgical intervention due poor surgical candidate at this time - Please re-consult as necessary. Further recs as per Dr. Andrés Fernandez PGY1 surgery pager: [phone]
[2017-05-02 10:29] LABS: HEMOGLOBIN 8.4 g/dL (12.0-16.0); MEAN CELL VOLUME 97.2 fl (80.0-105.0); MEAN CORPUSCULAR HEMOGLOBIN 33.1 pg (25.0-35.0); MEAN PLATELET VOLUME 10.7 fl (7.0-11.0); RBC 2.54 10^6/uL (3.5-6.1); RED CELL DISTRIBUTION WIDTH 21.1 % (11.5-14.5)
[2017-05-02 10:39] LABS: WHITE BLOOD COUNT 224.4 10^3/ul (4.5-11.0)
[2017-05-02] MEDS: Dextrose 5%/0.45% NS 1,000 ML IV SCH (11:02)
--- NOTE | 2017-05-02 14:34 | PN ---
DATE: 05/02/2017 SUBJECTIVE: The patient is in the ICU 128, bed 6. No fevers and no chills. PHYSICAL EXAMINATION: VITAL SIGNS: Temperature is 98. The patient did initially have a temperature of 100.4 on admission and is down to normal with a blood pressure of 130/60, respiratory of 18, heart rate of 83. HEENT: Unremarkable. NECK: Supple. LUNGS: Have decreased breath sounds. HEART: Normal S1, S2. ABDOMEN: Soft, nontender. LABORATORY EXAMINATION: Reveals a white count is down to 340,000, hemoglobin of 9, 63 platelets, and coagulation is noted. Chemistries reveal a BUN of 18, creatinine of 0.7. LDH is 2569, and procalcitonin is 0.52. WBCs are 5-10. Microbiology reveals the blood cultures are negative. Urine cultures are negative. Review of orders reveals the patient to have meropenem and vancomycin. Dr. Fernandez's note is reviewed. Surgical note, note is reviewed. Dr. Gardiner's note is reviewed. ASSESSMENT AND PLAN: An 81-year-old female with history of chronic myeloid leukemia, hypertension, dementia, coronary artery disease, urinary tract infection, and schizophrenia, presenting with a fever of 100.4, tachycardia, dyspnea, leukocytosis, infiltrate, and hypoxia. Severe sepsis with health care-associated, possible gram-positive cocci, possible gram-negative aiyana pneumonia with an elevated procalcitonin, and thus far, the blood and urine cultures are negative. The patient is on leukapheresis for the leukocytosis and by Dr. Gardiner and today's day #2 of vancomycin and meropenem. The patient appears to be improving. Cultures negative so far. We will follow closely with you Josh Rivers MD
[2017-05-02 14:50] LABS: BLOOD UREA NITROGEN 13 mg/dL (7-21); CALCIUM 8.2 mg/dL (8.4-10.5); GFR AFRICAN-AMERICAN > 60; GFR NON-AFRICAN AMERICAN > 60
[2017-05-02] MEDS: Vancomycin 1gm in NS 250ml 1 GM/250 ML BAG IVPB SCH ×2 (16:34→20:14)
--- NOTE | 2017-05-02 17:00 | CARD ---
APPROVED REPORT EKG Measurement Heart [id number] <Conclusion> Sinus tachycardia Possible Left atrial enlargement Left ventricular hypertrophy Abnormal ECG
--- NOTE | 2017-05-02 23:47 | CP.PCM.PCO ---
Physician Communication Note - Physician Communication Note Physician Communication Note: [facility] lab called: flow is CML, no increase blast. BCR-ABL pending.
--- NOTE | 2017-05-03 00:54 | PN ---
DATE: 05/02/2017 REFERRING PHYSICIAN: Dr. Patel. SUBJECTIVE: She is lying in the bed, much more awake and alert, agitative at a time. Family is at bedside, is trying to assure the patient. There is no cough, no nausea, no vomiting, no diarrhea, no leg pain, leg swelling. PHYSICAL EXAMINATION: GENERAL: In no acute distress. VITAL SIGNS: Temperature is 98, heart rate is 94, respiratory rate is 20, blood pressure 128/90, pulse oximetry 97% on supplemental oxygen. HEENT: Moist mucous membranes. No ulcer or thrush noted. NECK: Supple. No JVD. LUNGS: Diffuse scattered rhonchi. HEART: S1 and S2. ABDOMEN: Soft and nontender. No organomegaly. EXTREMITIES: No edema. NEUROLOGIC: Awake, alert, confused. MEDICATIONS: She is on Ativan 0.5 mg twice a day p.r.n., Colace 200 mg daily, dextrose 5% and half normal saline 100 mL per hour, Vitamin D2 400 international units daily, ferrous sulfate 324 mg daily, Hydrea 1000 mg 3 times a day, Lovenox 40 mg subcu daily, Megace 400 mg daily, meropenem 1 gm IV q.8 hours, Protonix 40 mg daily, Seroquel 25 mg at bedtime, Tylenol p.r.n., vancomycin 1 gm q.12 hours, allopurinol 100 mg twice a day. LABORATORY DATA: Shows hemoglobin 8.4, hematocrit 24.7, WBC 224,000, platelets is 44,000. Sodium 154, potassium 3.6, chloride 120, bicarbonate 23, BUN 13, creatinine 0.7, glucose 170, calcium is 8.2 in the morning, potassium is 2.4 which has been replaced. AST 57, ALT 34, alk phos is 59, LDH 2569. Microbiology, blood culture, urine culture; cultures are all unremarkable. IMPRESSION AND PLAN: Chronic myelocytic leukemia with leukemoid reaction, severe anemia requiring transfusion, hepatomegaly, splenomegaly, hypertension, dementia, anxiety disorder, hypokalemia. Case discussed with family at bedside. All the questions answered. Had a leukapheresis done yesterday with some improvement. Continue antibiotics, continue intravenous fluid, bronchodilator. Continue antianxiety medications. Sequential compression devices to lower extremities. Gastric prophylaxis. Followup labs in the morning. Critical care time spent was 35 minutes. Thank you and we will follow with you. Flako Rose MD
[2017-05-03] MEDS: Dextrose 5%/0.45% NS 1,000 ML IV SCH ×2 (01:00→10:13)
[2017-05-03] MEDS: Meropenem IV 1 gm in NS 50 ML IVPB SCH ×3 (02:13→18:41)
--- NOTE | 2017-05-03 06:50 | CP.CCUPN ---
<Elissa Rowland - Last Filed: 05/03/17 09:37> CCU Subjective - Physician Review Subjective (Free Text): 05/03/17 07:56 Patient seen and examined at bedside s/p three leukopheresis since admission. Nursing reported no acute events overnight. Patient continues to be confused and does not responds to questions appropriately. Afebrile overnight and VSS. Tolerating diet. Patient had BM overnight and is making good urine. Complete ROS unobtainable secondary to patient condition. Critical Care Time Spent (in minutes): 45 CCU Objective - Vital Signs / Intake & Output Vital Signs (Last 4 hours): Vital Signs Pulse Resp BP Pulse Ox 05/03/17 03:50 90 26 H 98 05/03/17 03:45 133/60 05/03/17 03:44 91 H 24 98 05/03/17 03:40 91 H 24 98 05/03/17 03:30 91 H 23 145/69 98 05/03/17 03:20 90 21 98 05/03/17 03:15 149/64 05/03/17 03:14 93 H 26 H 99 05/03/17 03:10 91 H 23 98 05/03/17 03:00 90 140/63 05/03/17 02:59 90 23 98 Intake and Output (Last 8hrs): Intake & Output 05/02/17 05/02/17 05/03/17 14:59 22:59 06:59 Intake Total 0 125 Balance 0 125 Intake: Blood Product 0 25 Red Blood Cells Cpd As1 0 25 Lr Unit [id number] Other 100 Red Blood Cells Cpd As1 100 Lr Unit [id number] - Physical Exam Head: Positive for: Atraumatic, Normocephalic Pupils: Positive for: PERRL Extroacular Muscles: Positive for: EOMI Conjunctiva: Positive for: Normal Mouth: Positive for: Moist Mucous Membranes Nose (External): Positive for: Atraumatic Neck: Positive for: Normal Range of Motion. Negative for: Meningeal Signs Respiratory/Chest: Positive for: Clear to Auscultation, Good Air Exchange. Negative for: Respiratory Distress, Accessory Muscle Use, Wheezes, Rales, Rhonchi, Tachypneic Cardiovascular: Positive for: Regular Rate and Rhythm, Normal S1, S2. Negative for: Murmurs, Irregular Rhythm Abdomen: Positive for: Normal Bowel Sounds. Negative for: Tenderness, Distention, Peritoneal Signs, Rebound, Guarding, McBurney's Point Tender, Rovsing's Sign Present Back: Positive for: Normal Inspection Upper Extremity: Positive for: Normal Inspection. Negative for: Cyanosis, Edema Lower Extremity: Positive for: Normal Inspection, Other (L femoral shiley in place- dressings c/d/i). Negative for: Edema Neurological: Positive for: Other (Responds to painful stimuli and makes incoherent sounds) Skin: Positive for: Warm, Dry, Normal Color. Negative for: Rashes Psychiatric: Positive for: Alert, Other (confused). Negative for: Oriented x 3 - Medications Active Medications: Active Medications Generic Name Dose Route Start Last Admin Trade Name Freq PRN Reason Stop Dose Admin Acetaminophen 650 mg 04/30/17 23:29 Tylenol 650 Mg Supp RC Q4H PRN Fever >100.4 F Allopurinol 100 mg 05/01/17 10:00 05/02/17 18:39 Zyloprim PO 100 mg BID JOSE Administration Docusate Sodium 200 mg 05/01/17 10:00 05/02/17 09:38 Colace PO 200 mg DAILY JOSE Administration Enoxaparin Sodium 40 mg 05/01/17 10:00 05/02/17 09:42 Lovenox SC 40 mg DAILY JOSE Administration Protocol Ferrous Sulfate 324 mg 05/01/17 10:00 05/02/17 09:38 Feosol PO 324 mg DAILY JOSE Administration Hydroxyurea 1,000 mg 05/02/17 11:15 05/02/17 18:43 Hydrea PO 05/05/17 00:00 1,000 mg TID JOSE Administration Hydroxyurea 500 mg 05/05/17 10:00 Hydrea PO DAILY JOSE Meropenem 50 mls @ 100 mls/hr 05/01/17 10:00 05/03/17 02:13 Merrem Iv 1 Gm Premix IVPB 100 mls/hr Q8H JOSE Administration Protocol Vancomycin HCl 1 gm in 250 mls @ 167 mls/hr 05/01/17 08:45 05/02/17 20:14 Vancomycin 1gm IVPB 05/10/17 08:46 167 mls/hr Q12H JOSE Administration Protocol Dextrose/Sodium Chloride 1,000 mls @ 100 mls/hr 05/02/17 10:45 05/03/17 01:00 Dextrose 5%/0.45% Ns 1000 Ml IV 100 mls/hr .Q10H JOSE Administration Lorazepam 0.5 mg 04/30/17 20:37 05/02/17 18:42 Ativan PO 0.5 mg BID PRN Administration Anxiety Protocol Megestrol Acetate 400 mg 05/01/17 10:00 05/02/17 09:37 Megace PO 400 mg DAILY JOSE Administration Non-Formulary Medication 400 iu 05/01/17 10:00 05/02/17 09:39 Ergocalciferol (Vitamin D2) [Vitamin D2] PO Not Given DAILY JOSE Pantoprazole Sodium 40 mg 05/01/17 10:00 05/02/17 09:37 Protonix Inj IVP 40 mg DAILY JOSE Administration Quetiapine Fumarate 25 mg 04/30/17 22:00 05/02/17 21:45 Seroquel PO 25 mg HS JOSE Administration Protocol - Patient Studies Lab Studies: Microbiology Studies 04/30/17 22:10 MRSA Culture (Admit) - Final Nose MRSA NOT DETECTED 05/01/17 14:06 Urine Culture - Final Urine No Growth (<1,000 CFU/ML) Lab Studies 05/03/17 05/02/17 05/02/17 Range/Units 00:36 14:20 11:22 WBC (4.5-11.0) 10^3/ul RBC (3.5-6.1) 10^6/uL Hgb (12.0-16.0) g/dL Hct (36.0-48.0) % MCV (80.0-105.0) fl MCH (25.0-35.0) pg MCHC (31.0-37.0) g/dl RDW (11.5-14.5) % Plt Count (120.0-450.0) 10^3/uL MPV (7.0-11.0) fl Retic Count (0.5-1.5) % Sodium 154 H (132-148) mmol/L Potassium 3.6 (3.6-5.0) mmol/L Chloride 120 H (98-107) mmol/L Carbon Dioxide 23 (21-33) mmol/L Anion Gap 15 (10-20) BUN 13 (7-21) mg/dL Creatinine 0.7 (0.7-1.2) mg/dl Est GFR ( Amer) > 60 Est GFR (Non-Af Amer) > 60 POC Glucose (mg/dL) 99 109 (65-110) mg/dL Random Glucose 170 H (70-110) mg/dL Calcium 8.2 L (8.4-10.5) mg/dL Phosphorus (2.5-4.5) mg/dL Magnesium (1.7-2.2) mg/dL Total Bilirubin (0.2-1.3) mg/dL AST (14-36) U/L ALT (7-56) U/L Alkaline Phosphatase (38-126) U/L Lactate Dehydrogenase (333-699) U/L Total Protein (5.8-8.3) g/dL Albumin (3.0-4.8) g/dL Globulin gm/dL Albumin/Globulin Ratio (1.1-1.8) HIV 1&2 Ag/Ab, 4th Gen (Nonreactive) Ur L.pneumophila Ag (NEGATIVE) Blood Type Antibody Screen Crossmatch BBK History Checked 05/02/17 05/02/17 05/02/17 Range/Units 09:50 09:08 07:40 WBC 224.4 H* D (4.5-11.0) 10^3/ul RBC 2.54 L (3.5-6.1) 10^6/uL Hgb 8.4 L (12.0-16.0) g/dL Hct 24.7 L (36.0-48.0) % MCV 97.2 D (80.0-105.0) fl MCH 33.1 (25.0-35.0) pg MCHC 34.0 (31.0-37.0) g/dl RDW 21.1 H (11.5-14.5) % Plt Count 44 L* (120.0-450.0) 10^3/uL MPV 10.7 (7.0-11.0) fl Retic Count 2.68 H (0.5-1.5) % Sodium (132-148) mmol/L Potassium (3.6-5.0) mmol/L Chloride (98-107) mmol/L Carbon Dioxide (21-33) mmol/L Anion Gap (10-20) BUN (7-21) mg/dL Creatinine (0.7-1.2) mg/dl Est GFR ( Amer) Est GFR (Non-Af Amer) POC Glucose (mg/dL) 111 H (65-110) mg/dL Random Glucose (70-110) mg/dL Calcium (8.4-10.5) mg/dL Phosphorus (2.5-4.5) mg/dL Magnesium (1.7-2.2) mg/dL Total Bilirubin (0.2-1.3) mg/dL AST (14-36) U/L ALT (7-56) U/L Alkaline Phosphatase (38-126) U/L Lactate Dehydrogenase (333-699) U/L Total Protein (5.8-8.3) g/dL Albumin (3.0-4.8) g/dL Globulin gm/dL Albumin/Globulin Ratio (1.1-1.8) HIV 1&2 Ag/Ab, 4th Gen (Nonreactive) Ur L.pneumophila Ag (NEGATIVE) Blood Type Antibody Screen Crossmatch BBK History Checked 05/02/17 05/02/17 05/01/17 Range/Units 05:48 05:48 14:25 WBC 341.3 H* (4.5-11.0) 10^3/ul RBC 2.74 L (3.5-6.1) 10^6/uL Hgb 9.6 L D (12.0-16.0) g/dL Hct 27.7 L (36.0-48.0) % MCV 101.1 D (80.0-105.0) fl MCH 35.0 (25.0-35.0) pg MCHC 34.7 (31.0-37.0) g/dl RDW 22.3 H (11.5-14.5) % Plt Count 63 L (120.0-450.0) 10^3/uL MPV 11.3 H (7.0-11.0) fl Retic Count (0.5-1.5) % Sodium 157 H* (132-148) mmol/L Potassium 2.4 L* (3.6-5.0) mmol/L Chloride 119 H (98-107) mmol/L Carbon Dioxide 27 (21-33) mmol/L Anion Gap 13 (10-20) BUN 17 (7-21) mg/dL Creatinine 0.7 (0.7-1.2) mg/dl Est GFR ( Amer) > 60 Est GFR (Non-Af Amer) > 60 POC Glucose (mg/dL) (65-110) mg/dL Random Glucose 103 (70-110) mg/dL Calcium 8.5 (8.4-10.5) mg/dL Phosphorus 1.9 L (2.5-4.5) mg/dL Magnesium 2.0 (1.7-2.2) mg/dL Total Bilirubin 0.7 (0.2-1.3) mg/dL AST 57 H (14-36) U/L ALT 34 (7-56) U/L Alkaline Phosphatase 59 (38-126) U/L Lactate Dehydrogenase 2569 H (333-699) U/L Total Protein 5.7 L (5.8-8.3) g/dL Albumin 3.2 (3.0-4.8) g/dL Globulin 2.5 gm/dL Albumin/Globulin Ratio 1.3 (1.1-1.8) HIV 1&2 Ag/Ab, 4th Gen (Nonreactive) Ur L.pneumophila Ag Negative (NEGATIVE) Blood Type Antibody Screen Crossmatch BBK History Checked 05/01/17 05/01/17 Range/Units 09:00 09:00 WBC (4.5-11.0) 10^3/ul RBC (3.5-6.1) 10^6/uL Hgb (12.0-16.0) g/dL Hct (36.0-48.0) % MCV (80.0-105.0) fl MCH (25.0-35.0) pg MCHC (31.0-37.0) g/dl RDW (11.5-14.5) % Plt Count (120.0-450.0) 10^3/uL MPV (7.0-11.0) fl Retic Count (0.5-1.5) % Sodium (132-148) mmol/L Potassium (3.6-5.0) mmol/L Chloride (98-107) mmol/L Carbon Dioxide (21-33) mmol/L Anion Gap (10-20) BUN (7-21) mg/dL Creatinine (0.7-1.2) mg/dl Est GFR ( Amer) Est GFR (Non-Af Amer) POC Glucose (mg/dL) (65-110) mg/dL Random Glucose (70-110) mg/dL Calcium (8.4-10.5) mg/dL Phosphorus (2.5-4.5) mg/dL Magnesium (1.7-2.2) mg/dL Total Bilirubin (0.2-1.3) mg/dL AST (14-36) U/L ALT (7-56) U/L Alkaline Phosphatase (38-126) U/L Lactate Dehydrogenase (333-699) U/L Total Protein (5.8-8.3) g/dL Albumin (3.0-4.8) g/dL Globulin gm/dL Albumin/Globulin Ratio (1.1-1.8) HIV 1&2 Ag/Ab, 4th Gen Nonreactive (Nonreactive) Ur L.pneumophila Ag (NEGATIVE) Blood Type O POSITIVE Antibody Screen Negative Crossmatch See Detail BBK History Checked Patient has bt Laboratory Results - last 24 hr 05/01/17 05/01/17 05/01/17 09:00 09:00 14:25 WBC RBC Hgb Hct MCV MCH MCHC RDW Plt Count MPV Retic Count Sodium Potassium Chloride Carbon Dioxide Anion Gap BUN Creatinine Est GFR ( Amer) Est GFR (Non-Af Amer) POC Glucose (mg/dL) Random Glucose Calcium Phosphorus Magnesium Total Bilirubin AST ALT Alkaline Phosphatase Lactate Dehydrogenase Total Protein Albumin Globulin Albumin/Globulin Ratio HIV 1&2 Ag/Ab, 4th Gen Nonreactive Ur L.pneumophila Ag Negative Blood Type O POSITIVE Antibody Screen Negative Crossmatch See Detail BBK History Checked Patient has bt 05/02/17 05/02/17 05/02/17 05:48 05:48 07:40 WBC 341.3 H* RBC 2.74 L Hgb 9.6 L D Hct 27.7 L MCV 101.1 D MCH 35.0 MCHC 34.7 RDW 22.3 H Plt Count 63 L MPV 11.3 H Retic Count Sodium 157 H* Potassium 2.4 L* Chloride 119 H Carbon Dioxide 27 Anion Gap 13 BUN 17 Creatinine 0.7 Est GFR ( Amer) > 60 Est GFR (Non-Af Amer) > 60 POC Glucose (mg/dL) 111 H Random Glucose 103 Calcium 8.5 Phosphorus 1.9 L Magnesium 2.0 Total Bilirubin 0.7 AST 57 H ALT 34 Alkaline Phosphatase 59 Lactate Dehydrogenase 2569 H Total Protein 5.7 L Albumin 3.2 Globulin 2.5 Albumin/Globulin Ratio 1.3 HIV 1&2 Ag/Ab, 4th Gen Ur L.pneumophila Ag Blood Type Antibody Screen Crossmatch BBK History Checked 05/02/17 05/02/17 05/02/17 09:08 09:50 11:22 WBC 224.4 H* D RBC 2.54 L Hgb 8.4 L Hct 24.7 L MCV 97.2 D MCH 33.1 MCHC 34.0 RDW 21.1 H Plt Count 44 L* MPV 10.7 Retic Count 2.68 H Sodium Potassium Chloride Carbon Dioxide Anion Gap BUN Creatinine Est GFR ( Amer) Est GFR (Non-Af Amer) POC Glucose (mg/dL) 109 Random Glucose Calcium Phosphorus Magnesium Total Bilirubin AST ALT Alkaline Phosphatase Lactate Dehydrogenase Total Protein Albumin Globulin Albumin/Globulin Ratio HIV 1&2 Ag/Ab, 4th Gen Ur L.pneumophila Ag Blood Type Antibody Screen Crossmatch BBK History Checked 05/02/17 05/03/17 14:20 00:36 WBC RBC Hgb Hct MCV MCH MCHC RDW Plt Count MPV Retic Count Sodium 154 H Potassium 3.6 Chloride 120 H Carbon Dioxide 23 Anion Gap 15 BUN 13 Creatinine 0.7 Est GFR ( Amer) > 60 Est GFR (Non-Af Amer) > 60 POC Glucose (mg/dL) 99 Random Glucose 170 H Calcium 8.2 L Phosphorus Magnesium Total Bilirubin AST ALT Alkaline Phosphatase Lactate Dehydrogenase Total Protein Albumin Globulin Albumin/Globulin Ratio HIV 1&2 Ag/Ab, 4th Gen Ur L.pneumophila Ag Blood Type Antibody Screen Crossmatch BBK History Checked Review of Systems - Review of Systems Systems not reviewed;Unavailable: Altered Mental Status Critical Care Progress Note - Nutrition Nutrition: Nutrition Category Date Time Status Dysphagia/Modified Consistency Diet [DIET] Diets 05/02/17 Breakfast Ordered Assessment/Plan - Assessment and Plan (Free Text) Assessment: 81yo F with PMHx of HTN, Dementia, Schizophrenia, Renal Cell CA s/p partial nephrectomy, CML, rectal bleed, here for evaluation for altered mental status. Admitted to ICU with WBC of 573.8 confirmed on repeat blood work on admission as 567.7 Plan: Neuro: -Head CT: atrophy and small vessel disease, age indeterminate basal ganglia lacunar infarcts, no bleed; sinus disease -Speech/Swallow eval -PT/OT -patient has baseline dementia Cardio: -No acute issues -Lipid panel: T Cholesterol: 118 LDL: 58 HDL: 20 -maintain MAP > 65 Pulm: -CT Chest: Left lwoer lobe airspace disease, infiltrate and/or atelectasis with small left effusion; elevated right diaphragm with compressive atelectasis at the right base; indeterminate 3.2mm right upper lobe nodule; cardiomegaly and atherosclerotic disease; prominent mediastinal nodes. -CXR: no active disease -Maintain sp02 > 90% -Dr. Rose consulted GI: -No acute issues -Diet: pureed w honey thickened liquids -Megace 400mg po qd -Colace 200mg po qd -Protonix 40mg ivp qd Renal: -Electrolytes repleted -D5 1/2NS @ 100cc/hr -Strict Is and Os -NS @ 100cc/hr -Allopurinol 100mg po bid -Lasix 20mg po qd -Brooks in place Endo: -no acute issues -Accucheck Heme/Onc: -WBC: 573.8 on admission --> 193.4 this AM s/p 3 leukophresis- no further leukopheresis this time as per heme/onc No need for leukophresis as per Heme/Onc- monitor WBC -H&H this AM: 9.4 and 28.3 s/p 3U PRBC retic count: 2.68 -Platelet 59 this AM -Monitor closely -Hydroxyrea 1000mg po tid for 3 days [last dose 05/04/17] Will start patient on Hydroxyrea 500mg po qdaily on 05/05/17 -Allopurinol 100mg po bid Monitor uric acid daily: 7.2 this AM -Patient needs to be started on Sprycel 100mg po qdaily - pharmacy contacted for medication -Feosol 324mg po qd -Flow cytometry: CML, no increase in blasts, BCR-Abl pending -CT Abd/Pelvis: interval development of hepatosplenomegaly, infectious/ inflammatory vs neoplastic; para-aortic adenopathy cannot be excluded; no bowel obstruction; empty bladder with Brooks catheter and bladder wall thickening; new right abdominal wall cutaneous nodule; atherosclerotic disease. -Pelvis CT: no evidence of acute hemorrhage -[facility] contacted for leukopheresis -Dr. Gardner consulted -[facility] contact information: ([phone]) ID: -blood culture: prelim neg x 2 -urine culture: neg -procalcitonin: 0.52 -Tylenol 650mg rc q4 prn temp -Vancomycin 1gm ivpb q12 day 3 -Merrem 1gm ivpb q8 day 3 -Dr. Rivers consulted Psych: -Seroquel 25mg po qhs -Ativan 0.5mg po bid prn GI ppx: protonix 40mg ivp qd DVT ppx: Lovenox 40mg sc qd and SCDs Diet: will advance diet to pureed w honey thickened liquids Dispo: Patient stable for transfer to med/surg Discussed with Dr. Thomas Rowland PGY2 <Gonzalo Guzman - Last Filed: 05/03/17 10:32> CCU Objective - Vital Signs / Intake & Output Intake and Output (Last 8hrs): Intake & Output 05/02/17 05/03/17 05/03/17 22:59 06:59 14:59 Intake Total 125 1550 Output Total 400 Balance 125 1150 Weight 116 lb Intake: IV 1550 Left Forearm 250 Right Antecubital 100 d5 0.5ns 1200 Blood Product 25 Red Blood Cells Cpd As1 25 Lr Unit [id number] Other 100 Red Blood Cells Cpd As1 100 Lr Unit [id number] Output: Urine 400 Urethral (Brooks) 400 Other: # Bowel Movements 1 - Medications Active Medications: Active Medications Generic Name Dose Route Start Last Admin Trade Name Freq PRN Reason Stop Dose Admin Acetaminophen 650 mg 04/30/17 23:29 Tylenol 650 Mg Supp RC Q4H PRN Fever >100.4 F Allopurinol 100 mg 05/01/17 10:00 05/02/17 18:39 Zyloprim PO 100 mg BID JOSE Administration Docusate Sodium 200 mg 05/01/17 10:00 05/02/17 09:38 Colace PO 200 mg DAILY JOSE Administration Enoxaparin Sodium 40 mg 05/01/17 10:00 05/02/17 09:42 Lovenox SC 40 mg DAILY JOSE Administration Protocol Ferrous Sulfate 324 mg 05/01/17 10:00 05/02/17 09:38 Feosol PO 324 mg DAILY JOSE Administration Hydroxyurea 1,000 mg 05/02/17 11:15 05/02/17 18:43 Hydrea PO 05/05/17 00:00 1,000 mg TID JOSE Administration Hydroxyurea 500 mg 05/05/17 10:00 Hydrea PO DAILY JOSE Meropenem 50 mls @ 100 mls/hr 05/01/17 10:00 05/03/17 02:13 Merrem Iv 1 Gm Premix IVPB 100 mls/hr Q8H JOSE Administration Protocol Vancomycin HCl 1 gm in 250 mls @ 167 mls/hr 05/01/17 08:45 05/02/17 20:14 Vancomycin 1gm IVPB 05/10/17 08:46 167 mls/hr Q12H JOSE Administration Protocol Dextrose/Sodium Chloride 1,000 mls @ 100 mls/hr 05/02/17 10:45 05/03/17 10:13 Dextrose 5%/0.45% Ns 1000 Ml IV 100 mls/hr .Q10H JOSE Administration Potassium Phosphate 15 mmole/ 255 mls @ 42.5 mls/hr 05/03/17 07:53 Sodium Chloride IVPB 05/03/17 13:52 ONCE ONE Lorazepam 0.5 mg 04/30/17 20:37 05/02/17 18:42 Ativan PO 0.5 mg BID PRN Administration Anxiety Protocol Megestrol Acetate 400 mg 05/01/17 10:00 05/02/17 09:37 Megace PO 400 mg DAILY JOSE Administration Non-Formulary Medication 400 iu 05/01/17 10:00 05/02/17 09:39 Ergocalciferol (Vitamin D2) [Vitamin D2] PO Not Given DAILY JOSE Pantoprazole Sodium 40 mg 05/01/17 10:00 05/02/17 09:37 Protonix Inj IVP 40 mg DAILY JOSE Administration Quetiapine Fumarate 25 mg 04/30/17 22:00 05/02/17 21:45 Seroquel PO 25 mg HS JOSE Administration Protocol - Patient Studies Lab Studies: Microbiology Studies 04/30/17 22:10 MRSA Culture (Admit) - Final Nose MRSA NOT DETECTED 05/01/17 14:06 Urine Culture - Final Urine No Growth (<1,000 CFU/ML) Lab Studies 05/03/17 05/03/17 05/03/17 Range/Units 07:54 05:45 05:45 WBC 193.4 H* (4.5-11.0) 10^3/ul RBC 2.85 L (3.5-6.1) 10^6/uL Hgb 9.4 L (12.0-16.0) g/dL Hct 28.3 L (36.0-48.0) % MCV 99.3 (80.0-105.0) fl MCH 33.0 (25.0-35.0) pg MCHC 33.2 (31.0-37.0) g/dl RDW 20.6 H (11.5-14.5) % Plt Count 59 L (120.0-450.0) 10^3/uL MPV 11.4 H (7.0-11.0) fl Sodium 151 H (132-148) mmol/L Potassium 3.1 L (3.6-5.0) mmol/L Chloride 120 H (98-107) mmol/L Carbon Dioxide 23 (21-33) mmol/L Anion Gap 12 (10-20) BUN 12 (7-21) mg/dL Creatinine 0.6 L (0.7-1.2) mg/dl Est GFR ( Amer) > 60 Est GFR (Non-Af Amer) > 60 POC Glucose (mg/dL) 92 (65-110) mg/dL Random Glucose 92 (70-110) mg/dL Uric Acid 7.2 H (2.5-6.2) mg/dL Calcium 7.9 L (8.4-10.5) mg/dL Phosphorus 2.3 L (2.5-4.5) mg/dL Magnesium 1.6 L (1.7-2.2) mg/dL Total Bilirubin 0.5 (0.2-1.3) mg/dL AST 43 H D (14-36) U/L ALT 29 (7-56) U/L Alkaline Phosphatase 40 (38-126) U/L Total Protein 4.7 L (5.8-8.3) g/dL Albumin 2.7 L (3.0-4.8) g/dL Globulin 2.1 gm/dL Albumin/Globulin Ratio 1.3 (1.1-1.8) HIV 1&2 Ag/Ab, 4th Gen (Nonreactive) Ur L.pneumophila Ag (NEGATIVE) Blood Type Antibody Screen Crossmatch BBK History Checked 05/03/17 05/02/17 05/02/17 Range/Units 00:36 14:20 11:22 WBC (4.5-11.0) 10^3/ul RBC (3.5-6.1) 10^6/uL Hgb (12.0-16.0) g/dL Hct (36.0-48.0) % MCV (80.0-105.0) fl MCH (25.0-35.0) pg MCHC (31.0-37.0) g/dl RDW (11.5-14.5) % Plt Count (120.0-450.0) 10^3/uL MPV (7.0-11.0) fl Sodium 154 H (132-148) mmol/L Potassium 3.6 (3.6-5.0) mmol/L Chloride 120 H (98-107) mmol/L Carbon Dioxide 23 (21-33) mmol/L Anion Gap 15 (10-20) BUN 13 (7-21) mg/dL Creatinine 0.7 (0.7-1.2) mg/dl Est GFR ( Amer) > 60 Est GFR (Non-Af Amer) > 60 POC Glucose (mg/dL) 99 109 (65-110) mg/dL Random Glucose 170 H (70-110) mg/dL Uric Acid (2.5-6.2) mg/dL Calcium 8.2 L (8.4-10.5) mg/dL Phosphorus (2.5-4.5) mg/dL Magnesium (1.7-2.2) mg/dL Total Bilirubin (0.2-1.3) mg/dL AST (14-36) U/L ALT (7-56) U/L Alkaline Phosphatase (38-126) U/L Total Protein (5.8-8.3) g/dL Albumin (3.0-4.8) g/dL Globulin gm/dL Albumin/Globulin Ratio (1.1-1.8) HIV 1&2 Ag/Ab, 4th Gen (Nonreactive) Ur L.pneumophila Ag (NEGATIVE) Blood Type Antibody Screen Crossmatch BBK History Checked 05/02/17 05/01/17 05/01/17 Range/Units 09:50 14:25 09:00 WBC 224.4 H* D (4.5-11.0) 10^3/ul RBC 2.54 L (3.5-6.1) 10^6/uL Hgb 8.4 L (12.0-16.0) g/dL Hct 24.7 L (36.0-48.0) % MCV 97.2 D (80.0-105.0) fl MCH 33.1 (25.0-35.0) pg MCHC 34.0 (31.0-37.0) g/dl RDW 21.1 H (11.5-14.5) % Plt Count 44 L* (120.0-450.0) 10^3/uL MPV 10.7 (7.0-11.0) fl Sodium (132-148) mmol/L Potassium (3.6-5.0) mmol/L Chloride (98-107) mmol/L Carbon Dioxide (21-33) mmol/L Anion Gap (10-20) BUN (7-21) mg/dL Creatinine (0.7-1.2) mg/dl Est GFR ( Amer) Est GFR (Non-Af Amer) POC Glucose (mg/dL) (65-110) mg/dL Random Glucose (70-110) mg/dL Uric Acid (2.5-6.2) mg/dL Calcium (8.4-10.5) mg/dL Phosphorus (2.5-4.5) mg/dL Magnesium (1.7-2.2) mg/dL Total Bilirubin (0.2-1.3) mg/dL AST (14-36) U/L ALT (7-56) U/L Alkaline Phosphatase (38-126) U/L Total Protein (5.8-8.3) g/dL Albumin (3.0-4.8) g/dL Globulin gm/dL Albumin/Globulin Ratio (1.1-1.8) HIV 1&2 Ag/Ab, 4th Gen Nonreactive (Nonreactive) Ur L.pneumophila Ag Negative (NEGATIVE) Blood Type Antibody Screen Crossmatch BBK History Checked 05/01/17 Range/Units 09:00 WBC (4.5-11.0) 10^3/ul RBC (3.5-6.1) 10^6/uL Hgb (12.0-16.0) g/dL Hct (36.0-48.0) % MCV (80.0-105.0) fl MCH (25.0-35.0) pg MCHC (31.0-37.0) g/dl RDW (11.5-14.5) % Plt Count (120.0-450.0) 10^3/uL MPV (7.0-11.0) fl Sodium (132-148) mmol/L Potassium (3.6-5.0) mmol/L Chloride (98-107) mmol/L Carbon Dioxide (21-33) mmol/L Anion Gap (10-20) BUN (7-21) mg/dL Creatinine (0.7-1.2) mg/dl Est GFR ( Amer) Est GFR (Non-Af Amer) POC Glucose (mg/dL) (65-110) mg/dL Random Glucose (70-110) mg/dL Uric Acid (2.5-6.2) mg/dL Calcium (8.4-10.5) mg/dL Phosphorus (2.5-4.5) mg/dL Magnesium (1.7-2.2) mg/dL Total Bilirubin (0.2-1.3) mg/dL AST (14-36) U/L ALT (7-56) U/L Alkaline Phosphatase (38-126) U/L Total Protein (5.8-8.3) g/dL Albumin (3.0-4.8) g/dL Globulin gm/dL Albumin/Globulin Ratio (1.1-1.8) HIV 1&2 Ag/Ab, 4th Gen (Nonreactive) Ur L.pneumophila Ag (NEGATIVE) Blood Type O POSITIVE Antibody Screen Negative Crossmatch See Detail BBK History Checked Patient has bt Laboratory Results - last 24 hr 05/01/17 05/01/17 05/01/17 09:00 09:00 14:25 WBC RBC Hgb Hct MCV MCH MCHC RDW Plt Count MPV Sodium Potassium Chloride Carbon Dioxide Anion Gap BUN Creatinine Est GFR ( Amer) Est GFR (Non-Af Amer) POC Glucose (mg/dL) Random Glucose Uric Acid Calcium Phosphorus Magnesium Total Bilirubin AST ALT Alkaline Phosphatase Total Protein Albumin Globulin Albumin/Globulin Ratio HIV 1&2 Ag/Ab, 4th Gen Nonreactive Ur L.pneumophila Ag Negative Blood Type O POSITIVE Antibody Screen Negative Crossmatch See Detail BBK History Checked Patient has bt 05/02/17 05/02/17 05/02/17 09:50 11:22 14:20 WBC 224.4 H* D RBC 2.54 L Hgb 8.4 L Hct 24.7 L MCV 97.2 D MCH 33.1 MCHC 34.0 RDW 21.1 H Plt Count 44 L* MPV 10.7 Sodium 154 H Potassium 3.6 Chloride 120 H Carbon Dioxide 23 Anion Gap 15 BUN 13 Creatinine 0.7 Est GFR ( Amer) > 60 Est GFR (Non-Af Amer) > 60 POC Glucose (mg/dL) 109 Random Glucose 170 H Uric Acid Calcium 8.2 L Phosphorus Magnesium Total Bilirubin AST ALT Alkaline Phosphatase Total Protein Albumin Globulin Albumin/Globulin Ratio HIV 1&2 Ag/Ab, 4th Gen Ur L.pneumophila Ag Blood Type Antibody Screen Crossmatch BBK History Checked 05/03/17 05/03/17 05/03/17 00:36 05:45 05:45 WBC 193.4 H* RBC 2.85 L Hgb 9.4 L Hct 28.3 L MCV 99.3 MCH 33.0 MCHC 33.2 RDW 20.6 H Plt Count 59 L MPV 11.4 H Sodium 151 H Potassium 3.1 L Chloride 120 H Carbon Dioxide 23 Anion Gap 12 BUN 12 Creatinine 0.6 L Est GFR ( Amer) > 60 Est GFR (Non-Af Amer) > 60 POC Glucose (mg/dL) 99 Random Glucose 92 Uric Acid 7.2 H Calcium 7.9 L Phosphorus 2.3 L Magnesium 1.6 L Total Bilirubin 0.5 AST 43 H D ALT 29 Alkaline Phosphatase 40 Total Protein 4.7 L Albumin 2.7 L Globulin 2.1 Albumin/Globulin Ratio 1.3 HIV 1&2 Ag/Ab, 4th Gen Ur L.pneumophila Ag Blood Type Antibody Screen Crossmatch BBK History Checked 05/03/17 07:54 WBC RBC Hgb Hct MCV MCH MCHC RDW Plt Count MPV Sodium Potassium Chloride Carbon Dioxide Anion Gap BUN Creatinine Est GFR ( Amer) Est GFR (Non-Af Amer) POC Glucose (mg/dL) 92 Random Glucose Uric Acid Calcium Phosphorus Magnesium Total Bilirubin AST ALT Alkaline Phosphatase Total Protein Albumin Globulin Albumin/Globulin Ratio HIV 1&2 Ag/Ab, 4th Gen Ur L.pneumophila Ag Blood Type Antibody Screen Crossmatch BBK History Checked Critical Care Progress Note - Nutrition Nutrition: Nutrition Category Date Time Status Dysphagia/Modified Consistency Diet [DIET] Diets 05/02/17 Breakfast Ordered Assessment/Plan - Assessment and Plan (Free Text) Plan: Patient seen and examined, with resident on rounds, agree with note with following additions/exceptions: Patient is 81yo female admitted with profound leukocytosis/lymphocytosis, s/p leukopharesis. Currently afebrile, HD stable, comfortable. Has baseline dementia. Labs WBC improving. hematology following, no plans for further leukopharesis Dementia Leukocytosis Hypernatremia Recommend: - supp o2 as needed - follow up ID, antibiotics as per ID - follow up cultures - BP control - follow up hematology - cont with Hydroxyurea as per Heme - monitor WBC, monitor mental status - D5W @100cc/hr - GI ppx - DVT ppx - stable transfer to floor
[2017-05-03 07:06] LABS: HEMOGLOBIN 9.4 g/dL (12.0-16.0); MEAN CELL VOLUME 99.3 fl (80.0-105.0); MEAN CORPUSCULAR HGB CONC 33.2 g/dl (31.0-37.0); MEAN PLATELET VOLUME 11.4 fl (7.0-11.0); PLATELET COUNT 59 10^3/uL (120.0-450.0); RBC 2.85 10^6/uL (3.5-6.1); RED CELL DISTRIBUTION WIDTH 20.6 % (11.5-14.5)
[2017-05-03 07:39] LABS: WHITE BLOOD COUNT 193.4 10^3/ul (4.5-11.0)
[2017-05-03 07:48] LABS: ALB/GLOB RATIO 1.3 (1.1-1.8); ALBUMIN 2.7 g/dL (3.0-4.8); ALT/SGPT 29 U/L (7-56); AST/SGOT 43 U/L (14-36); BLOOD UREA NITROGEN 12 mg/dL (7-21); CALCIUM 7.9 mg/dL (8.4-10.5); GFR AFRICAN-AMERICAN > 60; GFR NON-AFRICAN AMERICAN > 60; MAGNESIUM 1.6 mg/dL (1.7-2.2); URIC ACID 7.2 mg/dL (2.5-6.2)
[2017-05-03] MEDS ORDERED: Potassium Phosphate 15 MMOLE in Sodium Chloride 0.9% 250 ML IVPB ONE (07:53)
[2017-05-03] MEDS ORDERED: Potassium Chloride 40 mEq/30 ml LIQ UD PO ONE (07:54)
--- NOTE | 2017-05-03 09:22 | PN ---
DATE: 05/02/2017 SUBJECTIVE: The patient is seen and examined on the bedside. Sister was in the bedside, also feeding the patient because of the patient's swallowing evaluation test, and the patient is afebrile. Recommended pureed diet with honey thick diet. Still lethargic but better than admission, was drinking a juice, open eyes, doing movements on command. No fever, no chills; is still not able to give a complete review of systems. PHYSICAL EXAMINATION: VITAL SIGNS: Temperature 98.4, pulse 88, blood pressure 128/90, respiratory rate 20. HEENT: Head; normocephalic and atraumatic. Eyes; PERRLA. Extraocular muscles intact. Conjunctivae clear. Nose patent. Mucous membranes are moist. NECK: Supple. No carotid bruits, JVD or thyromegaly. CHEST: Bilaterally symmetrical. HEART: S1 and S2 positive. LUNGS: Clear to auscultation. ABDOMEN: Soft. Bowel sounds present. No organomegaly. EXTREMITIES: No edema. No cyanosis. NEUROLOGIC: The patient is awake and alert. Moving all four extremities but is confused. MEDICATIONS: Ativan, Colace, dextrose, ferrous sulfate, hydroxyurea, Lovenox, Megace, meropenem, Protonix, Seroquel, Tylenol, vancomycin, and allopurinol. LABORATORY DATA: White blood cell is 224, on admission it was 330.6, hemoglobin 8.4, hematocrit 54.7, platelets 44. Sodium 154, potassium 3.6, BUN 30, creatinine 0.7, glucose 170, calcium 8.2. ASSESSMENT AND PLAN: Ms. Tyrone Hobbs is an 81-year-old lady with biological leukocytosis, anemia, thrombocytopenia, hypernatremia, hyperchloremia, hyperglycemia, hypocalcemia, abnormal liver function test, lactate dehydrogenase is high, proteinuria, hematuria, human immunodeficiency virus is nonreactive. Appreciated Dr. Gardiner's preliminary patient report. 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 Seen by Dr. Rivers , ID . infectious disease doctor. The patient has history of chronic myeloid leukemia, hypertension, dementia, coronary artery disease, urinary tract infection, schizophrenia, history of fever, tachycardia, dyspnea, hypoxia. Severe sepsis which is healthcare associated, possibly gram positive cocci, possibly gram-negative and pneumonia with an elevated procalcitonin, and of note, blood and urine cultures are negative. The patient is on leukapheresis for the leukocytosis. The patient did have vancomycin and meropenem. The patient appears to be improving. Cultures are negative so far. Gastrointestinal and deep venous thrombosis prophylaxis. The patient has history of renal cell carcinoma, history of partial nephrectomy, history of gastrointestinal bleeding, severe leukemoid reaction with severe anemia, hepatomegaly, splenomegaly. I appreciate Dr. Rose's note. waiting for Dr. Gardner's input. We will follow up. Makayla Patel MD MTDD
--- NOTE | 2017-05-03 09:36 | CON ---
DATE: 05/03/2017 HEMATOLOGY CONSULTATION HISTORY OF PRESENT ILLNESS: This is an 81-year-old woman who is known to me about 2 years ago. She was found to have an elevated white count. Workup showed a chronic myelogenous leukemia. She was initially treated with Sprycel 50 mg a day. She was later switched to Bosulif 3 tablets p.o. daily. She started developing elevated liver function test. The last when I saw her was about 09/2015, and I believe she moved over to [facility] and I lost contact with her. At that time, she had dementia. She will come to the [facility] with her daughter. Daughter is quite aware of chronic myelogenous leukemia and made sure she took her pills. Had lost to follow up for about the last year and a half. She is now admitted for change in mental status and increasing lethargy and was found to have an elevated white count here in the hospital, it is about 350,000. PHYSICAL EXAMINATION: GENERAL: The patient really responds to pain, but is not really alert enough to speak. HEENT: Temporal wasting noted. NODES: Nonpalpable in axillary, cervical, supraclavicular or inguinal regions. LUNGS: Clear at present. She is able to lie flat. HEART: S1 and S2. ABDOMEN: Shows no liver, no spleen, no tenderness, no rebound. EXTREMITIES: No edema. CIRCUIT DESIGNER: Plantars are downward going bilaterally. LABORATORY DATA: Her white count is 341,000 when she first came in and went down to 224 yesterday. We do not have a blood count for today. Hemoglobin 8.4 and the platelets of 44,000. We do not have a uric acid here. I spoke with the house doctor yesterday and advised that she get Hydrea 500 mg 2 tablets p.o. q. 8 hours t.i.d. for next 3 days to stop brining down the blood counts and then after that we can change the doses to 1 a day or so. When she is out of the hospital, would be able to get it up to spice up. If the platelet count continues to drop on Hydrea, we will have to give her platelet transfusion, and she is going to need a blood transfusion to keep the hemoglobin at about 9-10. So the blood count should be checked daily for the next couple of days and transfuse hemoglobin 9-10, and platelet count should be above 20-30 in order to while we give Hydrea. Ronaldo MD Kendra
[2017-05-03] MEDS: Megestrol Acetate 40 mg/ml Cup PO SCH (10:31)
[2017-05-03] MEDS: Vancomycin 1gm in NS 250ml 1 GM/250 ML BAG IVPB SCH (10:32)
[2017-05-03] MEDS: Enoxaparin 40 mg Syringe SC SCH (10:33)
[2017-05-03] MEDS: ERGOCALCIFEROL PO SCH (10:34)
--- NOTE | 2017-05-03 10:57 | CARD ---
APPROVED REPORT EXAM: Two-dimensional and M-mode echocardiogram with Doppler and color Doppler. Other Information Quality : Fair[employer]hythm : INDICATION LVFX 2D DIMENSIONS Left Atrium (2D)4.0 (1.6-4.0cm)IVSd1.0 (0.7-1.1cm) LVDd4.3 (3.9-5.9cm)PWd1.0 (0.7-1.1cm) LVDs3.0 (2.5-4.0cm)FS (%) 29.9 % LVEF (%)57.0 (>50%) M-Mode DIMENSIONS Aortic Root2.80 (2.2-3.7cm)Aortic Cusp Exc.1.30 (1.5-2.0cm) Aortic Valve AoV Peak Vbosuvrz039.0cm/s Mitral Valve MV E Gfpnwshx88.7cm/sMV A Rkjlfadx574.0cm/sE/A ratio0.9 TDI Lateral E' Peak V8.77cm/sMedial E' Peak V9.94cm/sE/Lateral E'11.1 E/Medial E'9.8 Pulmonary Valve PV Peak Vctkwcyz73.6cm/sPV Peak Grad.2mmHg Tricuspid Valve TR Peak Thvuaagt611fj/sRAP DJEKCWPO72ahJwPO Peak Gr.22mmHg [id number] LEFT VENTRICLE The left ventricle is normal size. There is normal left ventricular wall thickness. The left ventricular function is normal. The left ventricular ejection fraction is within the normal range. There is normal LV segmental wall motion. RIGHT VENTRICLE The right ventricle is normal size. ATRIA The left atrium size is normal. The right atrium size is normal. The interatrial septum is intact with no evidence for an atrial septal defect. AORTIC VALVE The aortic valve is mildly to moderately calcified. MITRAL VALVE The mitral valve is normal in structure. Mitral regurgitation is trace. TRICUSPID VALVE The tricuspid valve is normal in structure. There is trace to mild tricuspid regurgitation. PULMONIC VALVE The pulmonic valve is not well visualized. GREAT VESSELS The aortic root is normal in size. PERICARDIAL EFFUSION There is no pericardial effusion. <Conclusion> The left ventricle is normal size. There is normal left ventricular wall thickness. The left ventricular function is normal. The aortic valve is mildly to moderately calcified. Aortic sclerosis vs. mild . Mitral regurgitation is trace. There is trace to mild tricuspid regurgitation.
[2017-05-03] MEDS ORDERED: [UNRECOGNIZED DRUG - OTHER] PO SCH ×2 (15:15→15:42)
[2017-05-03 15:57] LABS: BLOOD UREA NITROGEN 10 mg/dL (7-21); CALCIUM 7.8 mg/dL (8.4-10.5); GFR AFRICAN-AMERICAN > 60; GFR NON-AFRICAN AMERICAN > 60
[2017-05-03] MEDS: [UNRECOGNIZED DRUG - OTHER] PO SCH (18:49)
--- NOTE | 2017-05-03 19:17 | PN ---
DATE: 05/03/2017 PULMONARY CRITICAL PROGRESS NOTE REFERRING PHYSICIAN: Dr. Patel. SUBJECTIVE: She is lying in the bed, agitated by the time, nursing are at bedside. Night was unremarkable. Not much cough. No sputum production. No hemoptysis. No emesis. No hematuria. No diarrhea reported. OBJECTIVE: GENERAL: In no acute distress. VITAL SIGNS: Temperature is 98, heart rate is 89, respiratory rate is 26, blood pressure 133/60, pulse oximetry 98% on room air. HEENT: Moist mucous membranes. Small oral cavity. NECK: Supple. No JVD. LUNGS: Fair airflow with rhonchi. HEART: S1 and S2. ABDOMEN: Soft and nontender. No organomegaly. EXTREMITIES: No edema. NEUROLOGIC: Awake, alert, does not follow much commands, confused. MEDICATIONS: She is on Ativan 0.5 mg twice a day p.r.n., Colace 200 mg daily, IV fluid D5 half normal saline 100 mL per hour, Vitamin D 400 international units daily, ferrous sulfate 324 mg daily, insulin coverage, Hydroxyurea 1000 mg 3 times a day, Lovenox 40 mg daily, Megace 400 mg daily, meropenem 1 gm IV q. 8 hours, Protonix 40 mg daily, Seroquel 25 mg at bedtime, Tylenol p.r.n., vancomycin 1 gm IV q. 12 hours, allopurinol 100 mg twice a day. LABORATORY DATA: Shows hemoglobin 9.4, hematocrit 28.3, WBC 193, platelets is 59. Sodium 151, potassium 3.1, chloride 120, bicarbonate 23, BUN 12, creatinine 0.6, glucose 87, uric acid 7.2, calcium is 7.9, magnesium 1.6. AST 43, ALT 29. IMPRESSION AND PLAN: Chronic myelocytic leukemia with leukemoid reaction with severe anemia, thrombocytopenia requiring transfusion, hepatomegaly, splenomegaly, hypertension, dementia, anxiety disorder, electrolyte imbalance. Pulmonary point of view, doing okay. Gastric prophylaxis. DVT prophylaxis. Will be seen by Hematology/Oncology. Continue allopurinol for now. Status post leukapheresis. Aspiration precautions. Keep head at 45 degrees. Followup CBC, CMP in the morning. Thank you and we will follow with you. Flako Rose MD [facility] # [id number]
--- NOTE | 2017-05-03 20:21 | PN ---
DATE: 05/03/2017 SUBJECTIVE: The patient is in bed, in no acute distress, was seen early this morning in the ICU 128, bed 6. OBJECTIVE: VITAL SIGNS: Temperature is 98, blood pressure is 130/60, and respiratory rate of 16. HEENT: Unremarkable. NECK: Supple. LUNGS: Decreased breath sounds. HEART: Normal S1 and S2. ABDOMEN: Soft and nontender. LABORATORY DATA: Reveals a white count of 193,000, hemoglobin of 9, BUN of 10, and creatinine of 0.6. Procalcitonin 0.52. Urinalysis is noted and HIV is negative. The urine for Legionella antigen is negative. ASSESSMENT AND PLAN: This is an 81-year-old female who is seen in the Intensive Care Unit with a history of chronic myeloid leukemia, hypertension, dementia, coronary artery disease, urinary tract infection, schizophrenia, presenting with a fever, tachycardia, dyspnea, leukocytosis, hypoxia with severe sepsis, healthcare-associated possible Gram-positive cocci, possible Gram-negative aiyana pneumonia with an elevated procalcitonin. Blood and urine cultures are negative. The patient has had leukapheresis leukocytosis and today is day #3 of vancomycin and meropenem. We will continue the present course. We will order a vancomycin trough level. Review of medications reveals the patient to be on vancomycin at 8:45 a.m. and p.m. We will order a vancomycin today at 07:45 an hour before next dose. Josh Rivers MD
--- NOTE | 2017-05-03 23:02 | CP.PCM.PN ---
<Katiana Bright - Last Filed: 05/04/17 01:27> Subjective - Date & Time of Evaluation Date of Evaluation: 05/03/17 Time of Evaluation: 18:45 - Subjective Subjective: 75 yr female from [facility] w/ history hypertension, dementia, GI hemorrhage and schizophrenia. Found to be lethargic and aphasic. Baseline is confused. Pt is a poor historian. Objective - Vital Signs/Intake and Output Vital Signs (last 24 hours): Temp Pulse Resp BP Pulse Ox 98.4 F 91 H 26 H 133/60 98 05/02/17 15:32 05/03/17 12:00 05/03/17 03:50 05/03/17 03:45 05/03/17 03:50 Intake and Output: 05/03/17 05/04/17 18:59 06:59 Intake Total 1150 Output Total 450 Balance 700 - Medications Medications: Current Medications Acetaminophen (Tylenol 650 Mg Supp) 650 mg RC Q4H PRN PRN Reason: Fever >100.4 F Allopurinol (Zyloprim) 100 mg PO BID [facility] Last Admin: 05/03/17 18:42 Dose: 100 mg Docusate Sodium (Colace) 200 mg PO DAILY [facility] Last Admin: 05/03/17 10:37 Dose: 200 mg Enoxaparin Sodium (Lovenox) 40 mg SC DAILY [facility] PRN Reason: Protocol Last Admin: 05/03/17 10:33 Dose: 40 mg Ferrous Sulfate (Feosol) 324 mg PO DAILY [facility] Last Admin: 05/03/17 10:33 Dose: 324 mg Home Med (Home Med) 1 unit PO DAILY [facility] Last Admin: 05/03/17 18:49 Dose: 1 unit Meropenem (Merrem Iv 1 Gm Premix) 50 mls @ 100 mls/hr IVPB Q8H JOSE PRN Reason: Protocol Last Admin: 05/03/17 18:41 Dose: 100 mls/hr Vancomycin HCl (Vancomycin 1gm) 1 gm in 250 mls @ 167 mls/hr IVPB Q12H JOSE PRN Reason: Protocol Stop: 05/10/17 08:46 Last Admin: 05/03/17 10:32 Dose: 167 mls/hr Dextrose/Sodium Chloride (Dextrose 5%/0.45% Ns 1000 Ml) 1,000 mls @ 100 mls/hr IV .Q10H [facility] Last Admin: 05/03/17 10:13 Dose: 100 mls/hr Lorazepam (Ativan) 0.5 mg PO BID PRN; Protocol PRN Reason: Anxiety Last Admin: 05/02/17 18:42 Dose: 0.5 mg Megestrol Acetate (Megace) 400 mg PO DAILY [facility] Last Admin: 05/03/17 10:31 Dose: 400 mg Non-Formulary Medication (Ergocalciferol (Vitamin D2) [Vitamin D2]) 400 iu PO DAILY [facility] Last Admin: 05/03/17 10:34 Dose: Not Given Pantoprazole Sodium (Protonix Ec Tab) 40 mg PO ACB JOSE Quetiapine Fumarate (Seroquel) 25 mg PO HS [facility] PRN Reason: Protocol Last Admin: 05/02/17 21:45 Dose: 25 mg - Labs Labs: 05/03/17 05:45 05/03/17 15:00 PT 20.5 SECONDS (9.4-12.5) H 05/01/17 04:40 INR 1.76 (0.93-1.08) H 05/01/17 04:40 APTT 31.6 Seconds (25.1-36.5) 05/01/17 04:40 - Constitutional Appears: Chronically Ill - Head Exam Head Exam: ATRAUMATIC, NORMAL INSPECTION, NORMOCEPHALIC - Eye Exam Eye Exam: EOMI, Normal appearance, PERRL - ENT Exam ENT Exam: Mucous Membranes Moist, Normal Exam - Neck Exam Neck Exam: Full ROM, Normal Inspection. absent: Lymphadenopathy - Respiratory Exam Respiratory Exam: Clear to Ausculation Bilateral, NORMAL BREATHING PATTERN - Cardiovascular Exam Cardiovascular Exam: REGULAR RHYTHM, +S1, +S2. absent: Murmur - GI/Abdominal Exam GI & Abdominal Exam: Hypoactive Bowel Sounds - Extremities Exam Extremities Exam: Full ROM, Normal Capillary Refill, Normal Inspection. absent : Joint Swelling, Pedal Edema - Back Exam Back Exam: NORMAL INSPECTION - Neurological Exam Neurological Exam: Alert, Awake - Psychiatric Exam Psychiatric exam: Depressed, Flat Affect - Skin Skin Exam: Dry, Intact, Normal Color, Warm Assessment and Plan (1) Leukemia Status: Acute (2) Hypokalemia Status: Acute (3) Gout Status: Acute (4) Hypocalcemia Status: Acute (5) Hypophosphatemia Status: Acute (6) Hypomagnesemia Status: Acute (7) Hypoalbuminemia Status: Acute (8) Thrombopenia Status: Acute (9) Hematuria Status: Acute (10) Altered mental status Status: Acute (11) Anemia Status: Acute (12) Hypernatremia Status: Acute (13) Leukocytosis Status: Acute - Assessment and Plan (Free Text) Plan: Leukemia/Lymphoma workup. IV meropenem & vanco. Labs ordered. VTE/GI prophlyaxis. Pt onboard. Consults: ID - Dr. Rivers Surgery - Dr. Bowen Pulmo - Dr. Rose Hemo/Onc - Dr. Gardner Reviewed: CT pelvis - WNL CT chest/abd/pelvis - atelectatsis, R upper lobe nodule, cardiomegaly, atherosclerotoc disease, prominent mediastinal nodes, hepatosplenomagaly, infectious/inflammatory vs neoplastic CT head - atrophy & small vessel disease, age indeterminate basal ganglia lacunar infarcts. CXR - WNL ECHO - LVEF 57% ECG - ABNORMAL, ST, L atrial enlargement, L ventricular hyperthrophy <Makayla Patel - Last Filed: 05/04/17 13:16> Objective - Vital Signs/Intake and Output Vital Signs (last 24 hours): Temp Pulse Resp BP Pulse Ox 98.9 F 96 H 20 139/60 94 L 05/04/17 08:59 05/04/17 08:59 05/04/17 08:59 05/04/17 08:59 05/04/17 08:59 Intake and Output: 05/04/17 05/04/17 06:59 18:59 Output Total 200 Balance -200 - Medications Medications: Current Medications Acetaminophen (Tylenol 650 Mg Supp) 650 mg RC Q4H PRN PRN Reason: Fever >100.4 F Allopurinol (Zyloprim) 100 mg PO BID [facility] Last Admin: 05/04/17 10:47 Dose: 100 mg Docusate Sodium (Colace) 200 mg PO DAILY [facility] Last Admin: 05/04/17 10:47 Dose: 200 mg Enoxaparin Sodium (Lovenox) 40 mg SC DAILY [facility] PRN Reason: Protocol Last Admin: 05/04/17 10:47 Dose: 40 mg Ferrous Sulfate (Feosol) 324 mg PO DAILY [facility] Last Admin: 05/04/17 10:47 Dose: 324 mg Home Med (Home Med) 1 unit PO DAILY [facility] Last Admin: 05/03/17 18:49 Dose: 1 unit Vancomycin HCl (Vancomycin 1gm) 1 gm in 250 mls @ 167 mls/hr IVPB Q12H [facility] PRN Reason: Protocol Stop: 05/10/17 08:46 Last Admin: 05/04/17 10:57 Dose: 167 mls/hr Dextrose/Sodium Chloride (Dextrose 5%/0.45% Ns 1000 Ml) 1,000 mls @ 100 mls/hr IV .Q10H [facility] Last Admin: 05/04/17 08:00 Dose: 100 mls/hr Meropenem (Merrem Iv 1 Gm Premix) 50 mls @ 100 mls/hr IVPB 0600,1400,2200 [facility] PRN Reason: Protocol Last Admin: 05/04/17 08:00 Dose: 100 mls/hr Lorazepam (Ativan) 0.5 mg PO BID PRN; Protocol PRN Reason: Anxiety Last Admin: 05/02/17 18:42 Dose: 0.5 mg Megestrol Acetate (Megace) 400 mg PO DAILY [facility] Last Admin: 05/04/17 10:46 Dose: 400 mg Non-Formulary Medication (Ergocalciferol (Vitamin D2) [Vitamin D2]) 400 iu PO DAILY [facility] Last Admin: 05/04/17 10:46 Dose: Not Given Pantoprazole Sodium (Protonix Ec Tab) 40 mg PO ACB [facility] Last Admin: 05/04/17 10:47 Dose: 40 mg Quetiapine Fumarate (Seroquel) 25 mg PO HS [facility] PRN Reason: Protocol Last Admin: 05/02/17 21:45 Dose: 25 mg - Labs Labs: 05/04/17 06:30 05/04/17 06:30 PT 20.5 SECONDS (9.4-12.5) H 05/01/17 04:40 INR 1.76 (0.93-1.08) H 05/01/17 04:40 APTT 31.6 Seconds (25.1-36.5) 05/01/17 04:40 Assessment and Plan - Assessment and Plan (Free Text) Plan: 75 yr female from [facility] w/ history hypertension, dementia, GI hemorrhage and schizophrenia. Found to be lethargic and aphasic. Baseline is confused. Pt is a poor historian. agreed all above , chart , meds and labs noted .appreciated hematology in put , will omar. same treatment will f/u
[2017-05-04 07:20] LABS: HEMOGLOBIN 9.1 g/dL (12.0-16.0); MEAN CELL VOLUME 98.9 fl (80.0-105.0); MEAN CORPUSCULAR HEMOGLOBIN 32.4 pg (25.0-35.0); MEAN CORPUSCULAR HGB CONC 32.7 g/dl (31.0-37.0); PLATELET COUNT 99 10^3/uL (120.0-450.0); RBC 2.81 10^6/uL (3.5-6.1); RED CELL DISTRIBUTION WIDTH 20.2 % (11.5-14.5)
[2017-05-04 07:48] LABS: ALB/GLOB RATIO 1.2 (1.1-1.8); ALBUMIN 2.6 g/dL (3.0-4.8); ALT/SGPT 30 U/L (7-56); AST/SGOT 46 U/L (14-36); BLOOD UREA NITROGEN 9 mg/dL (7-21); CALCIUM 8.3 mg/dL (8.4-10.5); GFR AFRICAN-AMERICAN > 60; GFR NON-AFRICAN AMERICAN > 60; MAGNESIUM 1.7 mg/dL (1.7-2.2); URIC ACID 6.7 mg/dL (2.5-6.2)
[2017-05-04] MEDS: Meropenem IV 1 gm in NS 50 ML IVPB SCH ×3 (08:00→22:43)
[2017-05-04] MEDS: Dextrose 5%/0.45% NS 1,000 ML IV SCH (08:00)
[2017-05-04] MEDS ORDERED: Potassium Chloride 10 mEq ER Tab PO SCH (10:00)
[2017-05-04] MEDS ORDERED: POTASSIUM CHLORIDE 10 MEQ PO SCH (10:00)
[2017-05-04 10:11] LABS: BAND 3 % (0-2); CORRECTED WBC 168.4 K/mm3 (4.5-11.0); LYMPHOCYTE 1 % (22.0-35.0); MYELOCYTE 36 %; NEUTROPHIL 49 % (50.0-70.0); NUCLEATED RED BLOOD CELL 14 %; PLATELET ESTIMATE LOW (NORMAL); PROMYELOCYTE 11 %
[2017-05-04] MEDS: Megestrol Acetate 40 mg/ml Cup PO SCH (10:46)
[2017-05-04] MEDS: ERGOCALCIFEROL PO SCH (10:46)
[2017-05-04] MEDS: Enoxaparin 40 mg Syringe SC SCH (10:47)
[2017-05-04] MEDS: Pantoprazole 40 mg EC Tab PO SCH (10:47)
[2017-05-04] MEDS: Vancomycin 1gm in NS 250ml 1 GM/250 ML BAG IVPB SCH (10:57)
[2017-05-04] MEDS ORDERED: Potassium Chloride 20 mEq/15 ml LIQ UD PO STA (12:11)
[2017-05-04] MEDS: [UNRECOGNIZED DRUG - OTHER] PO SCH (16:01)
[2017-05-04 17:04] VITALS: O2SAT 98
--- NOTE | 2017-05-04 19:24 | US ---
PROCEDURE: Left upper extremity venous ultrasound HISTORY: Arm pain and swelling. Evaluate for deep venous thrombosis. PHYSICIAN(S): David Sue MD. FINDINGS: The visualized leftinternal jugular vein is sonographically normal and compressible. No evidence of obstruction or thrombus is seen. The visualized segments of the left subclavian vein are patent with normal waveforms. No sonographic evidence of obstruction or thrombosis is seen. The visualized deep venous system of the proximal leftupper extremity is sonographically normal and compressible. IMPRESSION: 1. No sonographic evidence for deep venous thrombosis in the visualized segments of the left upper extremity.
--- NOTE | 2017-05-04 20:00 | PN ---
DATE: 05/04/2017 PULMONARY PROGRESS NOTE REFERRING PHYSICIAN: Makayla Patel MD SUBJECTIVE: She is lying in the bed, head at 45 degree. Night was unremarkable. Comfortable today. On and off mild cough. No nausea. No vomiting. No diarrhea. No leg pain or leg swelling. PHYSICAL EXAMINATION GENERAL: In no acute distress. VITAL SIGNS: Temperature is 98, heart rate is 96, respiratory rate is 20, blood pressure is 139/60, pulse oximetry is 94% on room air. HEENT: Moist mucous membrane. No ulcer or thrush noted. NECK: Supple. No JVD. LUNGS: Fair airflow with rhonchi. HEART: S1 and S2. ABDOMEN: Soft and nontender. No organomegaly. EXTREMITIES: No edema. NEUROLOGIC: Awake and alert but confused. MEDICATIONS: She is on Ativan 0.5 mg twice a day p.r.n. for anxiety, Colace 200 mg daily, IV fluid D5 half normal saline 100 mL per hour, Vitamin D2 of 400 international units daily, ferrous sulfate 324 mg daily, also Lovenox 40 mg subcu daily, Megace 400 mg daily, meropenem 1 gm IV q. 8 hours, Protonix 40 mg daily, Seroquel 25 mg at bedtime, Tylenol p.r.n., vancomycin 1 gm IV q. 12 hours, allopurinol 100 mg twice a day. LABORATORY DATA: Shows hemoglobin 9.1, hematocrit 27.8, WBC 192, platelet count is 99. Sodium 147, potassium 3.1, chloride 118, bicarbonate 22, BUN 9, creatinine 0.7, glucose is 76, uric acid 6.7, calcium is 8.3, magnesium 1.7. AST 46, ALT 30, alk phos is 52, albumin is 2.6. Microbiology: Blood culture and urine culture, there is no growth. IMPRESSION AND PLAN: Chronic myelocytic leukemia with leukemoid reaction, severe anemia, thrombocytopenia requiring transfusion, hepatomegaly, splenomegaly, hypertension, dementia, anxiety disorder, electrolyte imbalance status post leukapheresis Pulmonary point of view, doing okay. Keep head at 45 degree. Aspiration precautions. Gastric prophylaxis. Deep venous thrombosis prophylaxis. Antibiotics as per Infectious Disease. Hematology/Oncology followup. Follow up labs in the morning. Thank you and we will follow with you. Flako Rose MD
--- NOTE | 2017-05-05 00:45 | PN ---
DATE: 05/04/2017 SUBJECTIVE: The patient is seen early this morning in room 561, bed 2. PHYSICAL EXAMINATION GENERAL: The patient is in bed. VITAL SIGNS: Temperature is 97, blood pressure is 130/80, respiratory rate of 18 and heart rate of 96. HEENT: Unremarkable. NECK: Supple. LUNGS: Have decreased breath sounds. HEART: Normal S1 and S2. ABDOMEN: Soft. LABORATORY DATA: Reveals the patient has a white count now up to 193,000, hemoglobin of 9. Chemistry reveals a BUN of 9, creatinine of 0.7. Vancomycin level of 21.4. Microbiology reveals blood cultures are negative. Urine cultures are negative. ASSESSMENT AND PLAN: An 81-year-old female seen earlier this morning with chronic myeloid leukemia, hypertension, dementia, coronary artery disease, urinary tract infection, schizophrenia, presenting with fever, tachycardia, dyspnea, leukocytosis, hypoxia with severe sepsis, with healthcare-associated gram-positive cocci, possible gram-negative aiyana with an elevated procalcitonin. Blood and urine cultures are negative. Today is day #4 of vancomycin and meropenem. We will discontinue vancomycin because of an vancomycin level. We will be able to switch to p.o. Vantin upon discharge 200 mg p.o. b.i.d. x5 days. Josh Rivers MD
[2017-05-05] MEDS: Dextrose 5%/0.45% NS 1,000 ML IV SCH (03:49)
--- NOTE | 2017-05-05 04:57 | PN ---
DATE: 05/04/2017 SUBJECTIVE: The patient was seen and examined at the bedside, looking comfortable, no change in the status. Coughing once in a while. No shortness of breath. No nausea, vomiting, or diarrhea. No hematuria or hematochezia. No swelling of the leg. Mental level is better. PHYSICAL EXAMINATION: VITAL SIGNS: Temperature 98, heart rate 93, respiratory rate 20, blood pressure 139/60, pulse oximetry 94% on room air. HEENT: Head: Normocephalic, atraumatic. Eyes: PERRLA. Extraocular muscles are intact. Conjunctivae clear. Nose patent. Mucous membranes are moist. NECK: Supple. No carotid bruits, JVD, or thyromegaly. CHEST: Bilaterally symmetrical. HEART: S1 and S2 positive. LUNGS: Clear to auscultation. ABDOMEN: Soft. Bowel sounds present. No organomegaly. EXTREMITIES: No edema. No cyanosis. NEUROLOGICAL: Awake and alert but getting attacks of confusion. MEDICATIONS: Ativan, Colace, IV fluid, vitamin D, ferrous sulfate, Lovenox, Megace, meropenem, Protonix, Seroquel, Tylenol, vancomycin, allopurinol. LABORATORY DATA: Hemoglobin 9.1, hematocrit 27.8, white blood cell 192, platelets 99. BUN 9, creatinine 0.7, glucose 76, uric acid 6.7, AST 46, and ALT 30. Blood and urine cultures done, no growth. ASSESSMENT AND PLAN: Ms. Tyrone Hobbs is an 81-year-old lady with chronic myelocytic leukemia with leukemoid reaction, severe anemia and thrombocytopenia requiring transfusion, hepatomegaly, splenomegaly, advanced dementia, hypertension, anxiety disorder, electrolyte imbalance, status post leukapheresis. Flow cytometry done. Aspiration precaution. Gastric prophylaxis and deep venous thrombosis prophylaxis. Hematology and Oncology Dr. Gardner is on the case. Continue antibiotics as per Infectious Disease. Dr. David Sue did ultrasound of the both lower extremities. No visualized evidence of deep vein thrombosis in the visualized segment of the left upper extremity. Seen by Dr. Rivers, Infectious Disease. History of hypertension, coronary artery disease, urinary tract infection, schizophrenia, tachycardia, dyspnea, healthcare associated possibly gram-positive cocci, possible gram-negative aiyana pneumonia with an elevated prolactin. The patient is getting antibiotics on day 3 of vancomycin and meropenem. We will continue present treatment. We will do vancomycin trough level. Discussion done with the patient, nursing staff, repeat labs. We will follow up. Makayla Patel MD
[2017-05-05] MEDS: Meropenem IV 1 gm in NS 50 ML IVPB SCH ×2 (05:34→15:08)
[2017-05-05 07:14] LABS: MEAN CELL VOLUME 100.4 fl (80.0-105.0); MEAN CORPUSCULAR HEMOGLOBIN 32.6 pg (25.0-35.0); MEAN CORPUSCULAR HGB CONC 32.5 g/dl (31.0-37.0); RBC 2.76 10^6/uL (3.5-6.1); RED CELL DISTRIBUTION WIDTH 20.4 % (11.5-14.5)
[2017-05-05 07:34] LABS: WHITE BLOOD COUNT 193.6 10^3/ul (4.5-11.0)
[2017-05-05 08:01] VITALS: BP 127/59; PULSE 91; RESP 22; TEMP 98.7
[2017-05-05 08:10] LABS: ALB/GLOB RATIO 1.1 (1.1-1.8); ALBUMIN 2.5 g/dL (3.0-4.8); ALT/SGPT 30 U/L (7-56); AST/SGOT 45 U/L (14-36); BLOOD UREA NITROGEN 10 mg/dL (7-21); CALCIUM 8.2 mg/dL (8.4-10.5); GFR AFRICAN-AMERICAN > 60; GFR NON-AFRICAN AMERICAN > 60; MAGNESIUM 1.8 mg/dL (1.7-2.2); URIC ACID 5.8 mg/dL (2.5-6.2)
[2017-05-05] MEDS: Megestrol Acetate 40 mg/ml Cup PO SCH (12:22)
[2017-05-05] MEDS: [UNRECOGNIZED DRUG - OTHER] PO SCH (12:24)
[2017-05-05] MEDS: Pantoprazole 40 mg EC Tab PO SCH (12:25)
[2017-05-05] MEDS: ERGOCALCIFEROL PO SCH (12:25)
[2017-05-05] MEDS: Enoxaparin 40 mg Syringe SC SCH (12:25)
--- NOTE | 2017-05-05 22:54 | CON ---
HEMATOLOGY CONSULTATION HISTORY OF PRESENT ILLNESS: This is an 81-year-old woman with chronic myelogenous leukemia. She is not verbal anymore. PHYSICAL EXAMINATION: SKIN: No petechia. HEENT: Anicteric. NODES: Nonpalpable in the axillary, cervical, supraclavicular or inguinal regions. LUNGS: Clear at present. No vertebral tenderness. The patient is able to lie down flat. HEART: S1 and S2. ABDOMEN: Shows no liver, no spleen, no tenderness. EXTREMITIES: No edema. DEVELOPMENT ASSOCIATE: Plantars are downward going bilaterally. I used to treat her for chronic myelogenous leukemia until about 09/2015, she was on Sprycel and then later on Bosulif daily. She is not on any of those medications at this time. The daughter who I know is at the bedside we talked and I explained that the white count is now down to 100, I arrange for her to get Sprycel 100 mg p.o. and that the senior care should send me a CBC every Tuesday at least weekly for me to see how the blood counts are doing before I can change the doses. The daughter knows me and states she will make sure that she goes to the [facility] and that they send me the results, so she can be transferred out at anytime. Ronaldo Gardner MD
--- NOTE | 2017-05-06 01:30 | PN ---
DATE: 05/05/2017 SUBJECTIVE: The patient is seen earlier this morning on 561, bed 2. No fevers. No chills. No nausea. OBJECTIVE: VITAL SIGNS: Temperature is 98, blood pressure is 120/50, respiratory rate of 16. HEENT: Unremarkable. NECK: Supple. LUNGS: Have decreased breath sounds. HEART: Normal S1, S2. ABDOMEN: Soft. LABORATORY EXAMINATION: Reveals a white count as noted. ASSESSMENT AND PLAN: This is an 81-year-old female, was seen earlier morning with chronic myeloid leukemia, hypertension, dementia, coronary artery disease, urinary tract infection, schizophrenia, presenting with fever, tachycardia, dyspnea, leukocytosis, hypoxia with severe sepsis and healthcare-associated possible gram-positive cocci, possible gram-negative aiyana with an elevated procalcitonin, completed 5 days of vancomycin and meropenem p.o. Vantin to complete therapy. Josh Rivers MD
--- NOTE | 2017-05-06 02:55 | PN ---
DATE: 05/05/2017 REFERRING PHYSICIAN: Makayla Patel MD SUBJECTIVE: She is lying in the bed, head at 45 degrees, asleep, arousable. No acute distress. Confused. No chest pain. No vomiting. No hematuria. No diarrhea reported. PHYSICAL EXAMINATION GENERAL: In no acute distress. VITAL SIGNS: Temperature is 98, heart rate is 95, respiratory rate is 20, blood pressure 127/59, pulse oximetry is 98% on room air. HEENT: Moist mucous membrane. No ulcer or thrush noted. NECK: Supple. No JVD. LUNGS: Fair airflow with a few rhonchi. HEART: S1 and S2. ABDOMEN: Positive bowel sounds, soft and nontender.. EXTREMITIES: No edema. NEUROLOGIC: Awake, alert, confused. MEDICATIONS: Reviewed. No new changes in medications reported. LABORATORY DATA: Shows hemoglobin 9.0, hematocrit 27.7, WBC 193, platelet is 140. Sodium 145, potassium 3.2, chloride 117, bicarbonate 21, BUN 10, creatinine 0.7, glucose 98, uric acid 5.8, calcium is 8.2, phosphorus 2.6, magnesium 1.8. AST 45, ALT 30, alkaline phosphatase is 49, albumin is 2.5. Vancomycin trough level is 21. Microbiology: Blood culture and urine culture, there is no growth. Has upper extremity ultrasound done today shows no DVT in left upper extremity. IMPRESSION AND PLAN: Chronic myelocytic leukemia with leukemoid reaction, severe anemia, thrombocytopenia, hepatomegaly, splenomegaly, hypertension, dementia, anxiety disorder, electrolyte imbalance, status post leukapheresis. The patient is seen by Oncology, Hematology. Presently stable, being [facility] to detention facility with continued followup by Oncology/Hematology. Gastric prophylaxis. Sequential compression device to the lower extremity. Flako Rose MD
== END 2017-05-05 20:17 | DRG 840 ==
LOC: ED 15:51 → ERH 18:47 → ICU 22:08 → 5RNO 05-03 21:35
PROVIDERS: ADMIT Internal Medicine; ATTEND Internal Medicine
PROC: 06HN33Z Insertion of Infusion Device into Left Femoral Vein, Percutaneous Approach (ICD-10-PCS; principal; 2017-04-30)
PROC: 6A550Z1 Pheresis of Leukocytes, Single (ICD-10-PCS; 2017-04-30)
PROC: B54CZZA Ultrasonography of Left Lower Extremity Veins, Guidance (ICD-10-PCS; 2017-04-30)
PROC: 30233N1 Transfusion of Nonautologous Red Blood Cells into Peripheral Vein, Percutaneous Approach (ICD-10-PCS; 2017-05-01)
DX: C92.10 Chronic myeloid leukemia, BCR/ABL-positive, not having achieved remission (principal); A41.9 Sepsis, unspecified organism; R65.20 Severe sepsis without septic shock; D69.6 Thrombocytopenia, unspecified; E83.39 Other disorders of phosphorus metabolism; E83.42 Hypomagnesemia; E83.51 Hypocalcemia; E87.0 Hyperosmolality and hypernatremia; J98.11 Atelectasis; K62.5 Hemorrhage of anus and rectum; N39.0 Urinary tract infection, site not specified; R47.01 Aphasia; D64.9 Anemia, unspecified; D72.823 Leukemoid reaction; E87.6 Hypokalemia; E88.09 Other disorders of plasma-protein metabolism, not elsewhere classified; F03.90 Unspecified dementia, unspecified severity, without behavioral disturbance, psychotic disturbance, mood disturbance, and anxiety; F20.9 Schizophrenia, unspecified; F41.9 Anxiety disorder, unspecified; I11.9 Hypertensive heart disease without heart failure; I25.10 Atherosclerotic heart disease of native coronary artery without angina pectoris; I51.7 Cardiomegaly; I73.9 Peripheral vascular disease, unspecified; M10.9 Gout, unspecified; R09.02 Hypoxemia; Z74.01 Bed confinement status; Z79.899 Other long term (current) drug therapy; Z85.528 Personal history of other malignant neoplasm of kidney; Z87.440 Personal history of urinary (tract) infections; Z90.5 Acquired absence of kidney; Z88.8 Allergy status to other drugs, medicaments and biological substances

== ENCOUNTER 2018-04-19 16:42 | Inpatient (IN) | payer MEDICARE, MEDICAID ==
[2018-04-19 16:53] VITALS: BMI 17.2
--- NOTE | 2018-04-19 17:45 | ED PDOC ---
Arrival/HPI - General Chief Complaint: Abdominal Pain Time Seen by Provider: 04/19/18 17:01 Historian: Family - History of Present Illness Narrative History of Present Illness (Text): 04/19/18 17:42 82-year-old female with a history of dementia presents today sent in by [facility] failure to thrive. Per family member since [place] the patient has been having decreased appetite. She states the past 2 visits the patient has not been eating anything or drinking anything. The patient's family member states that he power of deputy county attorney spoke with Dr. Patel in a obtained consent for G-tube placement. Patient is nonverbal in the emergency room. Patients family member states that she does not think that the patient is in any pain. She states at times the patient will hold his saliva in her mouth and not spit it out. Past Medical History - Provider Review Nursing Documentation Reviewed: Yes - Travel History Have you recently traveled outside [place] w/in the past 3 mons?: No - Infectious Disease Hx of Infectious Diseases: None - Tetanus Immunization Tetanus Immunization: Unknown - Cardiac Hx Cardiac Disorders: Yes Hx Hypertension: Yes - Pulmonary Hx Respiratory Disorders: No - Neurological Hx Neurological Disorder: Yes Hx Alzheimer's Disease: Yes Hx Dementia: Yes - HEENT Hx HEENT Disorder: No - Renal Hx Renal Disorder: No - Endocrine/Metabolic Hx Endocrine Disorders: No - Hematological/Oncological Hx Blood Disorders: Yes Hx Leukemia: Yes - Integumentary Hx Dermatological Disorder: No - Musculoskeletal/Rheumatological Hx Musculoskeletal Disorders: No - Gastrointestinal Hx Gastrointestinal Disorders: No - Genitourinary/Gynecological Hx Genitourinary Disorders: No - Psychiatric Hx Psychophysiologic Disorder: Yes Hx Schizophrenia: Yes Hx Substance Use: No - Surgical History Other/Comment: partial nephrectomy for renal cell ca - Anesthesia Hx Anesthesia Reactions: No Hx Malignant Hyperthermia: No - Suicidal Assessment Feels Threatened In Home Enviroment: No Family/Social History - Physician Review Nursing Documentation Reviewed: Yes Family/Social History: Unknown Family HX Smoking Status: Never Smoked Hx Alcohol Use: No Hx Substance Use: No Hx Substance Use Treatment: No Allergies/Home Meds Allergies/Adverse Reactions: Allergies enalapril Allergy (Verified 04/19/18 16:53) ANGIOEDEMA Home Medications: Home Meds Medication Instructions Recorded Confirmed Docusate [Colace] 200 mg PO DAILY 04/30/17 04/30/17 Ergocalciferol (Vitamin D2) 400 iu PO DAILY 04/30/17 04/30/17 [Vitamin D2] Ferrous Sulfate [Feosol] 325 mg PO DAILY 04/30/17 04/30/17 Furosemide [Lasix] 20 mg PO DAILY 04/30/17 04/30/17 LORazepam [Ativan] 0.5 mg PO BID PRN 04/30/17 04/30/17 Megestrol [Megace] 400 mg PO DAILY 04/30/17 04/30/17 Potassium Chloride 10 meq PO WED 04/30/17 04/30/17 Review of Systems - Review of Systems Systems not reviewed;Unavailable: Dementia Constitutional: absent: Fevers Respiratory: absent: Cough Gastrointestinal: absent: Diarrhea, Vomiting Physical Exam Vital Signs Reviewed: Yes Vital Signs Pulse Resp BP Pulse Ox 04/19/18 17:24 80 18 163/78 H 98 Temperature: Afebrile Blood Pressure: Hypertensive Pulse: Regular Respiratory Rate: Normal Appearance: Positive for: Well-Appearing, Non-Toxic, Comfortable, Cachectic Pain Distress: None Mental Status: Positive for: other (alert) - Systems Exam Head: Present: Atraumatic Nose (External): Present: Atraumatic Respiratory/Chest: Present: Clear to Auscultation, Good Air Exchange. No: Wheezes, Rhonchi Cardiovascular: Present: Regular Rate and Rhythm Abdomen: No: Tenderness, Distention Back: Present: Normal Inspection Skin: Present: Warm, Dry Psychiatric: Present: Alert, Oriented x 3 Medical Decision Making ED Course and Treatment: 04/19/18 17:47 82yr old female with hx of dementia presenting from [facility] with failure to thrive. pt is non verbal. vitals stable. afebrile. cbc: wnl cmp: trop: cxr; wnl UA; pending blood and urine cultures pending case discussed with dr. Patel; will admit for failure to thrive with consult dr. Carter for possible G tube placement. all aspects of this case were discussed the attending of record. impression; failure to thrive admit Reassessment Condition: Re-examined, Unchanged - RAD Interpretation Radiology Orders: 04/19/18 17:37 CHEST PORTABLE [RAD] Stat Disposition/Present on Arrival - Present on Arrival Any Indicators Present on Arrival: No History of DVT/PE: No History of Uncontrolled Diabetes: No Urinary Catheter: No History of Decub. Ulcer: No History Surgical Site Infection Following: None - Disposition Have Diagnosis and Disposition been Completed?: Yes Diagnosis: Failure to thrive Disposition: HOSPITALIZED Disposition Time: 17:50 Patient Plan: Admission Patient Problems: Current Active Problems Problem Status Onset Failure to thrive Acute Condition: FAIR Referrals: Makayla Patel MD [Primary Care Provider] - Follow up with primary Forms: [employer] ([place])
--- NOTE | 2018-04-19 18:16 | RAD ---
Date of service: 04/19/2018 HISTORY: failure to thrive COMPARISON: 04/30/2017. FINDINGS: LUNGS: The lungs are well inflated and clear. PLEURA: No pleural effusions or pneumothorax. CARDIOVASCULAR: The heart is normal in size. There are aortic atherosclerotic calcifications present. OSSEOUS STRUCTURES: There is diffuse bone demineralization and multilevel degenerative changes in the spine. 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 VISUALIZED UPPER ABDOMEN: Normal. OTHER FINDINGS: None. IMPRESSION: No active pulmonary disease.
[2018-04-19 19:34] LABS: BASO # 0.03 K/mm3 (0.0-2.0); BASO % 0.5 % (0.0-3.0); EOS # 0.1 (0.0-0.7); GRAN # 3.14 (1.4-6.5); HEMOGLOBIN 12.5 g/dL (12.0-16.0); LYMPH # 2.2 (1.2-3.4); MEAN CELL VOLUME 107.3 fl (80.0-105.0); MEAN CORPUSCULAR HEMOGLOBIN 34.9 pg (25.0-35.0); MEAN CORPUSCULAR HGB CONC 32.6 g/dl (31.0-37.0); MEAN PLATELET VOLUME 9.5 fl (7.0-11.0); MONO # 0.5 (0.1-0.6); MONO % 8.5 % (1.0-6.0); RBC 3.58 10^6/uL (3.5-6.1); RED CELL DISTRIBUTION WIDTH 14.2 % (11.5-14.5)
[2018-04-19 19:51] LABS: INR 1.09; PARTIAL THROMBOPLASTIN TIME 28.5 Seconds (25.1-36.5); PROTHROMBIN TIME 12.5 SECONDS (9.4-12.5)
[2018-04-19 20:23] LABS: URINE BILIRUBIN NEGATIVE (NEGATIVE); URINE BLOOD TRACE-INTACT (NEGATIVE); URINE GLUCOSE (UA) NEGATIVE (NEGATIVE); URINE LEUKOCYTE ESTERASE LARGE Leu/uL (NEGATIVE); URINE PROTEIN 30 mg/dL (<30 mg/dL); URINE UROBILINOGEN 0.2 E.U./dL (<1 E.U./dL)
[2018-04-19 20:26] LABS: URINE APPEARANCE CLOUDY (CLEAR); URINE COLOR YELLOW (YELLOW)
[2018-04-19] MEDS ORDERED: cefTRIAXone 1 gm 1 GM/100 ML BAG IVPB STA (20:26)
[2018-04-19 20:36] LABS: ALBUMIN 4.4 g/dL (3.0-4.8); ALT/SGPT 21 U/L (7-56); AST/SGOT 32 U/L (14-36); BLOOD UREA NITROGEN 24 mg/dL (7-21); CALCIUM 10.1 mg/dL (8.4-10.5); GFR NON-AFRICAN AMERICAN 53; LIPASE 110 U/L (23-300)
[2018-04-19 20:42] LABS: URINE BACTERIA MANY /hpf; URINE WBC TNTC /hpf (0-6)
[2018-04-19 20:45] LABS: TROPONIN I < 0.01 ng/mL
--- NOTE | 2018-04-20 09:05 | CARD ---
APPROVED REPORT Date of service: 04/19/2018 EKG Measurement Heart [id number] CT 148P57 [id number] <Conclusion> Normal sinus rhythm Clockwise Rotation.
[2018-04-20] MEDS: ceFAZolin IV 2 gm in 50 mL D5W IVPB ONE ×2 (09:18→18:16)
[2018-04-20 09:57] LABS: HEMOGLOBIN 10.8 g/dL (12.0-16.0); MEAN CELL VOLUME 107.3 fl (80.0-105.0); MEAN CORPUSCULAR HEMOGLOBIN 34.5 pg (25.0-35.0); MEAN CORPUSCULAR HGB CONC 32.1 g/dl (31.0-37.0); MEAN PLATELET VOLUME 8.9 fl (7.0-11.0); RBC 3.13 10^6/uL (3.5-6.1); RED CELL DISTRIBUTION WIDTH 13.8 % (11.5-14.5); WHITE BLOOD COUNT 4.4 10^3/uL (4.5-11.0)
[2018-04-20 10:15] LABS: BLOOD UREA NITROGEN 22 mg/dL (7-21); CALCIUM 10.2 mg/dL (8.4-10.5); GFR NON-AFRICAN AMERICAN > 60
[2018-04-20] MEDS ORDERED: Propofol 10 mg/ml Inj (20 ML) ONE (10:39)
[2018-04-20] MEDS ORDERED: Sodium Chloride 0.9% 1,000 ML IV SCH (10:45)
[2018-04-20] MEDS ORDERED: Etomidate 20 mg/10ml Inj IV ONE (11:12)
--- NOTE | 2018-04-20 13:11 | CP.PCM.APN ---
Subjective - Date & Time of Evaluation Date of Evaluation: 04/20/18 Time of Evaluation: 10:00 - Subjective Subjective: Pt seen and examined at bedside. In no acute distress. Pt is nonverbal. Objective - Vital Signs/Intake and Output Vital Signs (last 24 hours): Temp Pulse Resp BP Pulse Ox 98 F 71 14 170/75 H 95 04/20/18 11:48 04/20/18 11:48 04/20/18 11:48 04/20/18 11:48 04/20/18 11:48 - Labs Labs: 04/20/18 09:30 04/20/18 09:30 PT 12.5 SECONDS (9.4-12.5) 04/19/18 19:36 INR 1.09 04/19/18 19:36 APTT 28.5 Seconds (25.1-36.5) 04/19/18 19:36 - Constitutional Appears: No Acute Distress, Cachectic - Head Exam Head Exam: ATRAUMATIC - ENT Exam ENT Exam: Mucous Membranes Dry - Respiratory Exam Respiratory Exam: Clear to Ausculation Bilateral, NORMAL BREATHING PATTERN - Cardiovascular Exam Cardiovascular Exam: REGULAR RHYTHM, +S1, +S2 - GI/Abdominal Exam GI & Abdominal Exam: Soft, Normal Bowel Sounds - Rectal Exam Rectal Exam: Deferred - Extremities Exam Additional comments: contracted lower extremities - Neurological Exam Neurological Exam: Awake Assessment and Plan - Assessment and Plan (Free Text) Assessment: Pt is an 82 y.o. female w/ hx of dementia who [facility] to failure to thrive. Per family member since Thanksgiving the patient has been having decreased appetite. She had gastrostomy tube placed today. D/W Dr. Carter, will observe pt x24hrs post g-tube placement, to start tube feedings in AM. Plan: S/P gastrostomy tube placement GI on consult Pending urine culture On Rocephin IV Meds per JUN Will continue to follow
--- NOTE | 2018-04-20 15:08 | CP.PCM.CON ---
<Dieter King - Last Filed: 04/20/18 15:00> History of Present Illness - History of Present Illness History of Present Illness: PGY-4 GI Fellow Consult Note The following obtained from chart review, hospital staff and family via phone as patient is non-verbal. Pt is an 82 yo BF [facility] Dementia, HTN, HLD, Schizophrenia, Leukemia, h/o GI Bleed presenting from custodial with failure to thrive. Patient has not been eating or drinking for weeks due to progressive dementia. Family and POA (granddaughter Adeola Brock) spoke with Dr. Patel and agreed to proceed with PEG placement. Therefore, patient admitted with GI consult for PEG placement. Unable to obtain ROS due to clinical condition MHx: See above SurgHx: Unknown Meds: Review in chart FamHx: Unable to obtain SocHx: Negative x 3 All: Enalapril EGD 09/02/15: Small Hiatal hernia CSPY 09/04/15: Tics and Int Hemorrhoids Past Patient History - Infectious Disease Hx of Infectious Diseases: None - Tetanus Immunizations Tetanus Immunization: Unknown - Past Social History Smoking Status: Never Smoked - CARDIAC Hx Cardiac Disorders: Yes Hx Hypertension: Yes - PULMONARY Hx Respiratory Disorders: No - NEUROLOGICAL Hx Neurological Disorder: Yes Hx Alzheimer's Disease: Yes Hx Dementia: Yes - HEENT Hx HEENT Problems: No - RENAL Hx Chronic Kidney Disease: No - ENDOCRINE/METABOLIC Hx Endocrine Disorders: No - HEMATOLOGICAL/ONCOLOGICAL Hx Blood Transfusions: No Hx Blood Transfusion Reaction: No - INTEGUMENTARY Hx Dermatological Problems: No - MUSCULOSKELETAL/RHEUMATOLOGICAL Hx Musculoskeletal Disorders: No - GASTROINTESTINAL Hx Gastrointestinal Disorders: No - GENITOURINARY/GYNECOLOGICAL Hx Genitourinary Disorders: No - PSYCHIATRIC Hx Psychophysiologic Disorder: Yes Hx Schizophrenia: Yes Hx Substance Use: No - SURGICAL HISTORY Hx Surgeries: Yes - ANESTHESIA Hx Anesthesia Reactions: No Hx Malignant Hyperthermia: No Meds Allergies/Adverse Reactions: Allergies Allergy/AdvReac Type Severity Reaction Status Date / Time enalapril Allergy ANGIOEDEMA Verified 04/19/18 16:53 - Medications Medications: Current Medications Ceftriaxone Sodium (Rocephin 1 Gram Ivpb) 1 gm in 100 mls @ 100 mls/hr IVPB DAILY JOSE; Protocol Physical Exam - Constitutional Appears: Confused, Cachectic, Chronically Ill - Head Exam Additional comments: temporal wasting - Eye Exam Eye Exam: EOMI. absent: Scleral icterus - ENT Exam ENT Exam: Mucous Membranes Dry. absent: Mucous Membranes Moist Additional comments: poor dentition - Respiratory Exam Respiratory Exam: NORMAL BREATHING PATTERN. absent: Accessory Muscle Use, Respiratory Distress - Cardiovascular Exam Cardiovascular Exam: REGULAR RHYTHM, RRR - GI/Abdominal Exam GI & Abdominal Exam: Normal Bowel Sounds, Soft. absent: Bruit, Diminished Bowel Sounds, Distended, Firm, Guarding, Hernia, Mass, Organomegaly, Rigid, Tenderness - Rectal Exam Rectal Exam: Deferred - Extremities Exam Extremities exam: Positive for: normal inspection. Negative for: pedal edema - Neurological Exam Additional comments: non verbal, confused - Skin Skin Exam: Dry, Warm Results - Vital Signs Recent Vital Signs: Last Vital Signs Temp 98 F 04/20/18 11:48 Pulse 71 04/20/18 11:48 Resp 14 04/20/18 11:48 BP 170/75 H 04/20/18 11:48 Pulse Ox 95 04/20/18 11:48 - Labs Result Diagrams: 04/20/18 09:30 04/20/18 09:30 Labs: Laboratory Results - last 24 hr 04/19/18 04/19/18 04/19/18 19:25 19:36 19:54 WBC 6.0 RBC 3.58 Hgb 12.5 D Hct 38.4 MCV 107.3 H D MCH 34.9 MCHC 32.6 RDW 14.2 Plt Count 252 MPV 9.5 Gran % 52.0 Lymph % (Auto) 37.0 H [place] % (Auto) 8.5 H Eos % (Auto) 2.0 Baso % (Auto) 0.5 Gran # 3.14 Lymph # (Auto) 2.2 [place] # (Auto) 0.5 Eos # (Auto) 0.1 Baso # (Auto) 0.03 PT 12.5 INR 1.09 APTT 28.5 Sodium 150 H Potassium 3.5 L Chloride 114 H Carbon Dioxide 26 Anion Gap 13 BUN 24 H Creatinine 1.0 Est GFR ( Amer) > 60 Est GFR (Non-Af Amer) 53 Random Glucose 102 Calcium 10.1 Total Bilirubin 0.6 AST 32 ALT 21 Alkaline Phosphatase 92 Lactate Dehydrogenase 419 Total Creatine Kinase 62 Troponin I < 0.01 D Total Protein 8.8 H Albumin 4.4 Globulin 4.5 Albumin/Globulin Ratio 1.0 L Lipase 110 Urine Color Urine Appearance Urine pH Ur Specific [place] Urine Protein Urine Glucose (UA) Urine Ketones Urine Blood Urine Nitrate Urine Bilirubin Urine Urobilinogen Ur Leukocyte Esterase Urine RBC Urine WBC Ur Epithelial Cells Urine Bacteria 04/19/18 04/20/18 04/20/18 20:00 09:30 09:30 WBC 4.4 L D RBC 3.13 L Hgb 10.8 L Hct 33.6 L MCV 107.3 H MCH 34.5 MCHC 32.1 RDW 13.8 Plt Count 248 MPV 8.9 Gran % Lymph % (Auto) [place] % (Auto) Eos % (Auto) Baso % (Auto) Gran # Lymph # (Auto) [place] # (Auto) Eos # (Auto) Baso # (Auto) PT INR APTT Sodium 149 H Potassium 3.3 L Chloride 116 H Carbon Dioxide 26 Anion Gap 10 BUN 22 H Creatinine 0.8 Est GFR ( Amer) > 60 Est GFR (Non-Af Amer) > 60 Random Glucose 90 Calcium 10.2 Total Bilirubin AST ALT Alkaline Phosphatase Lactate Dehydrogenase Total Creatine Kinase Troponin I Total Protein Albumin Globulin Albumin/Globulin Ratio Lipase Urine Color Yellow Urine Appearance Cloudy Urine pH 6.0 Ur Specific [place] 1.025 Urine Protein 30 H Urine Glucose (UA) Negative Urine Ketones Negative Urine Blood Trace-intact H Urine Nitrate Positive H Urine Bilirubin Negative Urine Urobilinogen 0.2 Ur Leukocyte Esterase Large H Urine RBC 5 - 10 H Urine WBC Tntc H Ur Epithelial Cells 10 - 12 H Urine Bacteria Many Assessment & Plan - Assessment and Plan (Free Text) Assessment: 82 yo BF with dementia, h/o leukemia, schizophrenia presenting with failure to thrive. # Failure to thrive: Due to progressive dementia. Dual nursing and physician informed consent obtained from MARY BETH Brock at number listed in chart. Risks, benefits and alternatives discussed with POA who consented to procedure. Plan: - PEG placement today - OK for medications and flushes - Nutrition consult - Tube feeds to start on 04/21/18 - Abd binder and water 30 mL flushes q 8 hrs Pt seen and examined with Dr. Carter; please see attestation for further recs/changes. <Margo Carter V - Last Filed: 04/20/18 23:25> Meds - Medications Medications: Current Medications Ceftriaxone Sodium (Rocephin 1 Gram Ivpb) 1 gm in 100 mls @ 100 mls/hr IVPB DAILY JOSE; Protocol Results - Vital Signs Recent Vital Signs: Last Vital Signs Temp 97.6 F 04/20/18 22:28 Pulse 82 04/20/18 22:28 Resp 18 04/20/18 22:28 BP 133/64 04/20/18 22:28 Pulse Ox 99 04/20/18 22:28 - Labs Result Diagrams: 04/20/18 09:30 04/20/18 09:30 Labs: Laboratory Results - last 24 hr 04/20/18 04/20/18 09:30 09:30 WBC 4.4 L D RBC 3.13 L Hgb 10.8 L Hct 33.6 L MCV 107.3 H MCH 34.5 MCHC 32.1 RDW 13.8 Plt Count 248 MPV 8.9 Sodium 149 H Potassium 3.3 L Chloride 116 H Carbon Dioxide 26 Anion Gap 10 BUN 22 H Creatinine 0.8 Est GFR ( Amer) > 60 Est GFR (Non-Af Amer) > 60 Random Glucose 90 Calcium 10.2 Attending/Attestation - Attestation I have personally seen and examined this patient.: Yes I have fully participated in the care of the patient.: Yes I have reviewed all pertinent clinical information: Yes Notes (Text): This is an addendum to GI consult report dictated by the GI Fellow. The patient was seen and examined earlier. Medical records, lab studies, imagings were reviewed. Last 24 hours events reviewed. Agreed with the above treatment plan as outlined in GI Fellow 's notes with the addition of the following discussed with the family informed consent was obtained for feeding tube placement
[2018-04-20] MEDS ORDERED: Potassium Chloride 40 mEq/30 ml LIQ UD PO ONE (18:14)
[2018-04-20] MEDS ORDERED: Potassium Chloride 40 mEq/30 ml LIQ UD GT ONE (18:39)
--- NOTE | 2018-04-20 21:04 | HP ---
DATE OF EXAM: 04/20/[address] Parikh covering for Dr. Makayla Patel. HISTORY OF PRESENT ILLNESS The patient is an 82-year-old female admitted from the detention for gastrostomy tube placement due to failure to thrive and progressive weight loss. PAST MEDICAL HISTORY: Includes a history of leukemia, history of dementia, history of chronic schizophrenia and hypertension. PAST SURGICAL HISTORY: Includes GI bleed. CURRENT MEDICATIONS: Include Seroquel 25 mg at bedtime, potassium chloride 10 mEq daily, Protonix 40 mg daily, Megace 400 mg daily, Ativan 0.5 mg b.i.d. p.r.n., Lasix 20 mg daily, Feosol 325 mg daily, Lovenox 40 mg subcu daily, Zyloprim 100 mg twice daily and Tylenol 650 mg every 4 hours p.r.n. FAMILY HISTORY: Noncontributory. SOCIAL HISTORY: The patient is totally dependent with ADLs and IADLs. There is no history of tobacco or alcohol use. ALLERGIES THE PATIENT HAS AN ALLERGY TO ENALAPRIL WITH ANGIOEDEMA IN THE PAST. REVIEW OF SYSTEMS: Unobtainable. PHYSICAL EXAMINATION: GENERAL: The patient is a cachectic female, in no acute distress. VITAL SIGNS: Blood pressure 170/75, temperature 98, pulse 71, respiratory rate 14. HEENT: Head is normocephalic, atraumatic. Pupils equal, round, reactive to light. NECK: Supple. No thyromegaly. No carotid bruit. No adenopathy. LUNGS: Clear. HEART: Regular rate and rhythm. ABDOMEN: Soft, nontender. Bowel sounds are normoactive. EXTREMITIES: Without cyanosis, clubbing or edema. There are bilateral flexion contractures of the hips and knees with severe bilateral muscle wasting and atrophy. NEUROLOGIC: The patient is awake, confused and nonverbal without focal sensory or motor deficits. SKIN: Warm and dry. LABORATORY DATA: WBC is 4.4, hemoglobin 10.8, hematocrit 33.6. Sodium 149, potassium 3.3, chloride 116, BUN 22, creatinine 0.8, glucose is 90. IMPRESSION: 1. Failure to thrive with malnutrition. 2. History of hypertension. 3. Advanced dementia. 4. Chronic schizophrenia. 5. History of leukemia, previously treated by Dr. Santillan and Dr. Gardner. PLAN: The patient is for PEG placement today. We will monitor electrolytes and discharged back to the detention when stable. LUCIE Shannon MD
[2018-04-21 09:43] VITALS: O2SAT 95
[2018-04-21] MEDS ORDERED: cefTRIAXone 1 gm 1 GM/100 ML BAG IVPB SCH (10:00)
[2018-04-21 12:12] LABS: ALB/GLOB RATIO 0.9 (1.1-1.8); ALBUMIN 3.9 g/dL (3.0-4.8); ALT/SGPT 22 U/L (7-56); AST/SGOT 34 U/L (14-36); BLOOD UREA NITROGEN 18 mg/dL (7-21); CALCIUM 9.5 mg/dL (8.4-10.5); GFR NON-AFRICAN AMERICAN 60
[2018-04-21 15:19] VITALS: BP 125/53; PULSE 52; RESP 18; TEMP 98.2
--- NOTE | 2018-04-21 16:24 | CP.PCM.PN ---
Subjective - Date & Time of Evaluation Date of Evaluation: 04/21/18 Time of Evaluation: 11:05 - Subjective Subjective: S&E at bedside this am, chart reviewed, no acute overnight events. S/p PEG yesterday. Site intact, have abdominal binder, pt tolerated water flushes, no residual. No reports of overt GI bleeding. Objective - Vital Signs/Intake and Output Vital Signs (last 24 hours): Temp Pulse Resp BP Pulse Ox 98.2 F 52 L 18 125/53 L 95 04/21/18 14:00 04/21/18 14:00 04/21/18 14:00 04/21/18 14:00 04/21/18 07:00 - Medications Medications: Current Medications Ceftriaxone Sodium (Rocephin 1 Gram Ivpb) 1 gm in 100 mls @ 100 mls/hr IVPB DAILY [facility]; Protocol Last Admin: 04/21/18 09:48 Dose: 100 mls/hr - Labs Labs: 04/20/18 09:30 04/21/18 11:35 PT 12.5 SECONDS (9.4-12.5) 04/19/18 19:36 INR 1.09 04/19/18 19:36 APTT 28.5 Seconds (25.1-36.5) 04/19/18 19:36 - Constitutional Appears: No Acute Distress - Eye Exam Eye Exam: absent: Scleral icterus - ENT Exam ENT Exam: Mucous Membranes Dry - Respiratory Exam Respiratory Exam: Decreased Breath Sounds, NORMAL BREATHING PATTERN. absent: Respiratory Distress - Cardiovascular Exam Cardiovascular Exam: +S1, +S2 - GI/Abdominal Exam GI & Abdominal Exam: Soft, Normal Bowel Sounds. absent: Guarding, Tenderness, Rebound Additional comments: (+) PEG in place, insertion site dry and intact, no bloody drain noted. - Extremities Exam Extremities Exam: absent: Pedal Edema Additional comments: extremities contracted - Neurological Exam Neurological Exam: Altered, Awake. absent: Oriented x3 Additional comments: confused, h/o Dementia - Skin Skin Exam: Dry, Warm Assessment and Plan - Assessment and Plan (Free Text) Assessment: ASSESSMENT: Failure to thrive, s/p PEG tube Progressive Dementia Schizophrenia H/O Leukemia PLAN: CBC stable, no reports bleeding start PEG feeding, Bolus fedding, Jevity 1 can TID, with water flushes as ordered dietary evaluation for recommendation of caloric intake if patient tolerated bolus feeding, may discharge back to nursing facility, discuss w/ nursing staff. Seen and discussed w/ Dr. Love who is covering Dr. Carter.
--- NOTE | 2018-04-21 16:56 | PQF ---
PROVIDER RESPONSE TEXT: Patient with moderate to severe malnutrition - second to third degree REVIEWER QUERY TEXT: Malnutrition Severity Malnutrition is documented in the Medical Record. Please specify the severity Such as: -- Mild - first degree -- Moderate - second degree -- Severe - third degree -- Severe malnutrition with marasmus -- Other, please specify The patient's Clinical Indicators include: 1/ admitted from the [facility] for gastrostomy tube placement due to failure to thrive and progr essive weight loss.BMI 17.2. Malnutrition was documented, indicate severity Query created by: Inga Landaverde on 04/21/2018 2:02 PM Electronically signed by: Hakeem Parikh MD 04/21/2018 4:53 PM
--- NOTE | 2018-04-22 00:27 | DS ---
This is Dr. Parikh covering for Dr. Makayla Patel. HOSPITAL COURSE The patient is a 82-year-old female admitted for gastrostomy tube placement due to [id number] and progressive weight loss. The patient had a percutaneous gastrostomy tube placed by Dr. Carter without complications and is medically stable for transfer back to the group home in stable condition. PHYSICAL EXAMINATION: VITAL SIGNS: Blood pressure 125/53, pulse 52, temperature 98.2, respiratory rate 18. LUNGS: Clear. HEART: Regular rate and rhythm. ABDOMEN: Soft, nontender. Bowel sounds are normoactive. PEG tube is intact. EXTREMITIES: Without cyanosis, clubbing or edema. NEUROLOGIC: The patient is awake and confused without focal sensory or motor deficits. IMPRESSION: 1. Malnutrition, dehydration, status post percutaneous endoscopic gastrostomy placement. 2. Hypertension. 3. Advanced dementia. 4. History of chronic schizophrenia. 5. 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 PLAN: The patient was discharged back to the group home on the following medications, Seroquel 25 mg at bedtime, Protonix 40 mg daily, Lasix 20 mg daily, Feosol 325 mg daily, Ativan 0.5 mg twice daily p.r.n., potassium chloride 10 mEq daily, Zyloprim 100 mg twice daily. The patient was started on enteral feeding. Activities as per group home. She will be followed there by Dr. Patel resuming on Tuesday. LUCIE Shannon MD
--- NOTE | 2018-04-24 08:52 | PN ---
DATE: 04/21/2018 Addendum to a progress note performed by PAVAN Bassett This is Dr. Love covering for Dr. Carter. The patient is status post PEG placement for failure to thrive. We will start the patient on bolus feedings of 240 mL three times a day. If tolerated, the patient can be discharged to the nursing facility. Artis Love MD
== END 2018-04-21 20:56 | DRG 641 ==
LOC: ED 16:42 → ERH 20:27 → 5RSO 22:27
PROVIDERS: ADMIT Internal Medicine; ATTEND Internal Medicine
DX: E43 Unspecified severe protein-calorie malnutrition (principal); Z68.1 Body mass index [BMI] 19.9 or less, adult; R62.7 Adult failure to thrive; F02.80 Dementia in other diseases classified elsewhere, unspecified severity, without behavioral disturbance, psychotic disturbance, mood disturbance, and anxiety; Z79.899 Other long term (current) drug therapy; E78.5 Hyperlipidemia, unspecified; E86.0 Dehydration; F20.9 Schizophrenia, unspecified; G30.9 Alzheimer's disease, unspecified; I10 Essential (primary) hypertension; Z85.528 Personal history of other malignant neoplasm of kidney; Z90.5 Acquired absence of kidney; Z88.8 Allergy status to other drugs, medicaments and biological substances; Z93.1 Gastrostomy status; Z85.6 Personal history of leukemia